=== PATIENT | female | born 1960 | race Caucasian/White ===

== ENCOUNTER 2016-08-28 06:35 | Day surgery (SDC) | payer OTHER ==
[2016-08-28 07:26] VITALS: RESP 16; TEMP 98.7
[2016-08-28 07:26] LABS: Glucose,Whole Blood 90 mg/dL (75-99)
[2016-08-28] MEDS ORDERED: LACTATED RINGERS 1,000 ML IV ONE (07:43)
[2016-08-28] MEDS ORDERED: LIDOCAINE 1% 20 ML VIAL (10MG/ML) FOR IV START INTRADERMA ONE (07:44)
[2016-08-28] MEDS ORDERED: LACTATED RINGERS 1,000 ML IV SCH (07:45)
[2016-08-28] MEDS ORDERED: TRIAMCINOLONE ACETONIDE 40 MG/ML 1 ML VIAL ONE (07:58)
[2016-08-28] MEDS ORDERED: BUPIVACAINE (PF) 0.5% 30 ML VIAL ONE (07:58)
[2016-08-28] MEDS ORDERED: MIDAZOLAM 2 MG/2 ML VIAL ONE (07:58)
[2016-08-28] MEDS ORDERED: fentaNYL (PF) 50 MCG/ML 2 ML AMP ONE (07:58)
[2016-08-28] MEDS ORDERED: IV FLUID CONTINUATION 1,000 ML IV ONE (08:43)
--- NOTE | 2016-08-28 08:54 | FL ---
EXAMINATION TYPE: FL guided pain mgmt statistic DATE OF EXAM: 08/28/2016 8:38 AM FLUOROSCOPY Fluoroscopy time of 48 seconds was used during cervical facet injections. 6 image/s document/s the p rocedure.
[2016-08-28 08:59] VITALS: BP 130/88; PULSE 89
--- NOTE | 2016-08-28 09:48 | P.PCN ---
Date of Procedure: 08/28/16 Anesthesia: MAC Surgeon: Manjit Fan Pathology: none sent Condition: stable Disposition: PACU Description of Procedure: PREOPERATIVE DIAGNOSIS: Cervical spondylosis without myelopathy, cervicogenic headache. POSTOPERATIVE DIAGNOSIS: same PROCEDURES: Diagnostic bilateral C3, C4, C5 medial branch with fluoroscopic guidance ANESTHESIA: Local with 1% lidocaine; IV sedation with Versed and fentanyl EBL: Minimal PROCEDURE INDICATION: This is a patient with neck pain and headaches secondary to cervical arthropathy unresponsive to more conservative treatments, with 2-3 weeks' relief > 50% from CMBB #1; pt presents for #2 today. Patient had flushing with steroids after using Decadron so Kenalog will be used today. PROCEDURE DESCRIPTION / TECHNIQUE: The patient was seen and identified in the preoperative area. Risks, benefits, complications, and alternatives were discussed with the patient (including but not limited to incomplete pain relief , bleeding, infection, nerve damage, and allergies to medications), the patient agreed to proceed with the procedure and signed the consent after all questions were answered. IV was started. Vital signs remained stable throughout the procedure. Patient was taken to the OR and time out was completed. The patient was placed in the prone position on the procedure table. A pillow was placed under the patients chest to increase the cervical interlaminar space. The cervical area was prepped and draped in the usual sterile fashion. Critical pause was taken. Vital signs were closely monitored during the procedure. Conscious sedation was used during the procedure to decrease patients anxiety. Using cross-table lateral fluoroscopy, the centroid of the trapezoid of right C3 , was identified, marked, and localized with 1% lidocaine. Subsequently, a 25 G spinal needle was advanced guided by fluoroscopy to the centroid of the trapezoid of C3. Needle tip position was confirmed at the centroid of the trapezoids of C3 with anteroposterior fluoroscopy. Subsequently, 1 ml of a combination of 20 mg Kenalog and 6 ml of preservative-free Bupivacaine 0.5% was injected after negative aspiration for blood and CSF. Needle was then removed intact the same procedure was repeated at the right C4 and C5 levels, and then repeated for the C3, C4, and C5 medial branch areas on the left side. COMPLICATIONS: No acute complications. COMMENTS: DISPOSITION / PLANS: The patient was placed in a supine position and transferred to the recovery area in a stable condition for observation and was discharged from the recovery room after meeting discharge criteria. Home discharge instructions given to the patient by the staff. The patient was reexamined prior to discharge and there were no issues. The patient will schedule RFA in 2-4 weeks if she has good relief.
== END 2016-08-28 09:16 | disposition home or self-care (01) ==
LOC: ORPAIN 06:35
PROVIDERS: ATTEND Anesthesiology
DX: M47.812 Spondylosis without myelopathy or radiculopathy, cervical region (principal); R51 Headache; M46.92 Unspecified inflammatory spondylopathy, cervical region; M50.30 Other cervical disc degeneration, unspecified cervical region; M54.5 Low back pain; K21.9 Gastro-esophageal reflux disease without esophagitis; Z79.1 Long term (current) use of non-steroidal anti-inflammatories (NSAID); Z79.899 Other long term (current) drug therapy; Z91.09 Other allergy status, other than to drugs and biological substances
CPT/HCPCS: 64490; 64491; 64492; J2250; J3301; J3010

== ENCOUNTER 2016-10-20 06:20 | Day surgery (SDC) | payer OTHER ==
[2016-10-17 10:27] VITALS: BMI 28.3
[2016-10-20 06:50] VITALS: RESP 16; TEMP 97.8
[2016-10-20] MEDS ORDERED: LACTATED RINGERS 1,000 ML IV ONE (07:04)
[2016-10-20 07:05] LABS: Glucose,Whole Blood 97 mg/dL (75-99)
[2016-10-20] MEDS ORDERED: fentaNYL (PF) 50 MCG/ML 2 ML AMP ONE (07:06)
[2016-10-20] MEDS ORDERED: MIDAZOLAM 2 MG/2 ML VIAL ONE (07:06)
[2016-10-20] MEDS ORDERED: DEXAMETHASONE SOD PHOS (MDV) 100 MG/10 ML VIAL ONE (07:06)
[2016-10-20] MEDS ORDERED: LACTATED RINGERS 1,000 ML IV SCH (07:15)
--- NOTE | 2016-10-20 08:32 | FL ---
Fluoroscopy INDICATION: Pain FINDINGS: Fluoroscopy time: 37 seconds. Images obtained: 1. IMPRESSIONS: 1. Documentation of fluoroscopy.
[2016-10-20 08:36] VITALS: BP 114/79; PULSE 83
--- NOTE | 2016-10-20 10:06 | P.PCN ---
Date of Procedure: 10/20/16 Surgeon: Manjit Fan Pathology: none sent Condition: stable Disposition: PACU Description of Procedure: PREOPERATIVE DIAGNOSIS: Cervical spondylosis without myelopathy and facet arthropathy. POSTOPERATIVE DIAGNOSIS: Cervical spondylosis without myelopathy and facet arthropathy. PROCEDURES: Radiofrequency thermocoagulation, C3-C4, C4-C5, C5-C6 medial branch , with fluoroscopic guidance, right side. ANESTHESIA: Local with 1% lidocaine; conscious sedation EBL: Minimal PROCEDURE INDICATION: The patient with neck pain secondary to cervical arthropathy who had more than 50% relief of her pain with previous diagnostic cervical medial branch block. No use of blood thinners. Patient presents for cervical RFA today. PROCEDURE DESCRIPTION / TECHNIQUE: The patient was seen and identified in the preoperative area. Risks, benefits, complications, and alternatives were discussed with the patient (with risks including but not limited to bleeding, infection, nerve damage, incomplete pain relief, and allergic reactions to medications), the patient agreed to proceed with the procedure and signed the informed consent after all questions were answered. IV was started. Vital signs remained stable throughout the procedure. Patient was taken to the OR and time out was completed. The patient was placed in the prone position on the procedure table. A pillow was placed under the patients chest to increase the cervical interlaminar space. The cervical area was prepped and draped in the usual sterile fashion. Critical pause was taken. Vital signs were closely monitored during the procedure. Conscious sedation was used during the procedure to decrease patients anxiety. Using cross-table lateral fluoroscopy, the centroid of the trapezoid of C3, C4, C5, C6 were identified, marked, and localized with 1% lidocaine. Subsequently, a 21-gauge 100-mm radiofrequency cannula with a 5-mm active tip was advanced guided by fluoroscopy to the centroid of the trapezoid of C4, C5, and C6. Needle tip position was confirmed at the centroid of the trapezoids of C4, C5, and C6 with anteroposterior fluoroscopy. Each site then underwent sensory testing at 50 Hz and 0 to 1 volt and motor testing at 2 Hz and 0 to 3 volt with local stimulation, but no radicular symptoms down the arm. Thereafter C4, C5, and C6 sites underwent radiofrequency thermocoagulation at 80 degrees celsius for 90 seconds after injecting 0.5 ml of PF lidocaine 1%. After thermocoagulation, 1 ml of the block solution containing Decadron 10 mg and 2 mL of preservative-free normal saline was injected at the C4, C5, and C6 levels after negative aspiration of CSF and blood and with no paresthesias. Cannulas were retracted while injecting lidocaine 1% until the needle is out. Skin was cleansed and bandages were applied. COMPLICATIONS: No acute complications. COMMENTS: DISPOSITION / PLANS: The patient was placed in a supine position and transferred to the recovery area in a stable condition for observation and was discharged from the recovery room after meeting discharge criteria. Home discharge instructions given to the patient by the staff. The patient was reexamined prior to discharge. The patient will schedule a follow up for left cervical RFA in 2-4 weeks.
== END 2016-10-20 08:55 | disposition home or self-care (01) ==
LOC: ORPAIN 06:20
PROVIDERS: ATTEND Anesthesiology
DX: M47.812 Spondylosis without myelopathy or radiculopathy, cervical region (principal); M46.92 Unspecified inflammatory spondylopathy, cervical region; Z91.013 Allergy to seafood
CPT/HCPCS: 64633; 64634 ×2; 99152; 99153 ×2; J2250; J3010; J1100

== ENCOUNTER → 2016-11-07 | Day surgery (SDC) | payer OTHER ==
[2016-11-03 10:47] VITALS: BMI 26.9
[~2016-11-07] MED LIST: BUPIVACAIN-EPI 0.25%-1:200,000 30 ML VIAL SQ ONE; DEXAMETHASONE SOD PHOSPHATE 10 MG/ML 1 ML VIAL IV ONE; HEPARIN SODIUM,PORCINE 5,000 UNIT/ML 1 ML VIAL SQ ONE; HYDROmorphone 1 MG/ML 1 ML SYRINGE IVP PRN; LACTATED RINGERS 1,000 ML IV SCH; MIDAZOLAM 2 MG/2 ML VIAL IV PRN; MIDAZOLAM 2 MG/2 ML VIAL ONE; ONDANSETRON 4 MG/2 ML VIAL IVP ONE; PROPOFOL 10 MG/ML 20 ML VIAL IV ONE; SCOPOLAMINE 1.5MG/72HR PATCH TRANSDERM ONE; SODIUM CHLORIDE 0.9% 50 ML with ceFAZolin 2,000 MG IV ONE; fentaNYL (PF) 50 MCG/ML 2 ML AMP ONE
[2016-11-07 07:02] LABS: Glucose,Whole Blood 99 mg/dL (75-99)
--- NOTE | 2016-11-07 07:53 | P.GSHP ---
History of Present Illness H&P Date: 11/07/16 Chief Complaint: Right chest wall lipoma This a 56-year-old female who has complaints of a right chest wall mass. The mass is just below her right clavicle mass measures approximately 3 cm in diameter and has the appearance of a lipoma. - Constitutional Constitutional: Reports as per HPI Past Medical History Past Medical History: Asthma, COPD, Diabetes Mellitus, Fibromyalgia, GERD/Reflux , Hypertension, Liver Disease, Osteoarthritis (OA), Renal Disease Additional Past Medical History / Comment(s): Hepatitis C, DDD in cervical neck area, Sjogren's syndrome. Hx. arrythmia, diet control diabetic restless leg syndrome. osteoporosis History of Any Multi-Drug Resistant Organisms: None Reported Past Surgical History: Cholecystectomy, Hernia Repair, Orthopedic Surgery, Tubal Ligation Additional Past Surgical History / Comment(s): BILAT CARPAL TUNNEL, EYE SURGERY A CHILD, RT FOOT FX. , HIATAL HERNIA SX, [facility] INJECTIONS, umblical hernia, bilat toenails removed 10/22/15. Past Anesthesia/Blood Transfusion Reactions: Motion Sickness Past Psychological History: Anxiety, Depression Smoking Status: Former smoker Past Alcohol Use History: None Reported Additional Past Alcohol Use History / Comment(s): Pt quit smoking -2012, smoked 1PPD x 29 yrs. Past Drug Use History: None Reported - Past Family History Father Family Medical History: Cancer Additional Family Medical History / Comment(s): Colon Mother Family Medical History: Cancer Additional Family Medical History / Comment(s): Uterine Medications and Allergies Home Medications Medication Instructions Recorded Confirmed Type Albuterol Inhaler [Ventolin 1 - 2 puff INHALATION DIRECTED 02/15/14 11/07/16 History Inhaler] PRN Sucralfate [Carafate] 1 gm PO BID PRN 02/15/14 11/07/16 History hydrALAZINE HCL 10 mg PO BID 02/15/14 11/03/16 History oxyCODONE HCL [OxyIR] 5 mg PO QID 02/15/14 11/03/16 History traMADol HCl [Ultram] 50 tab PO BID 02/15/14 11/03/16 History traZODone HCL [Desyrel] 100 mg PO HS 02/15/14 11/03/16 History Montelukast Sodium [Singulair] 10 mg PO HS 04/14/14 11/03/16 History Cyclobenzaprine [Flexeril] 10 mg PO HS 08/28/14 11/03/16 History Pilocarpine [Salagen] 5 mg PO QID 10/20/14 11/03/16 History Albuterol Nebulized [Ventolin 2.5 mg INHALATION QID 11/23/14 11/07/16 History Nebulized] Fluticasone/Salmeterol [Advair 1 inhalation PO BID 11/23/14 11/03/16 History 250-50 Diskus] Ipratropium Nebulized [Atrovent 0.5 mg INHALATION Q6HR 11/23/14 11/03/16 History Nebulized] Alendronate Sodium 70 mg PO WEEKLY 03/15/15 11/07/16 History Budesonide [Pulmicort] 1 applicate IH BID 03/15/15 11/03/16 History Gabapentin [Gabapentin] 100 mg PO TID 03/15/15 11/03/16 History Sennosides [Senokot] 8.6 mg PO DAILY PRN 03/20/15 11/07/16 History Estradiol [Vagifem] 10 mcg VG WESA 08/06/15 11/03/16 History rOPINIRole HCL [Requip] 0.5 mg PO HS 09/03/15 11/03/16 History Lansoprazole [Prevacid] 30 mg PO DAILY 12/26/15 11/03/16 History Gabapentin [Neurontin] 300 mg PO HS 07/08/16 11/03/16 History Biotin 5,000 mcg PO DAILY 10/17/16 11/03/16 History Cranberry Extract [Cranberry] 500 mg PO DAILY 10/17/16 11/03/16 History Garlic 1 each PO BID 10/17/16 11/03/16 History Multivits-Min/Iron/FA/Lutein 1 each PO DAILY 10/17/16 11/03/16 History [Centrum Silver Women Tablet] Ciclopirox Nail 1 applicate TOPICAL HS 11/03/16 11/07/16 History Sm Athelet 1% 1 applicate TOPICAL BID 11/03/16 11/07/16 History Allergies Allergy/AdvReac Type Severity Reaction Status Date / Time JOSE Inhibitors Allergy Swelling Verified 11/07/16 06:49 acetaminophen Allergy Anaphylaxis Verified 11/07/16 06:49 adhesive Allergy skin peels Verified 11/07/16 06:49 off(plastic & bandaids), paper/cloth tape ok amitriptyline Allergy Swelling Verified 11/07/16 06:49 aspirin Allergy SHORTNESS Verified 11/07/16 06:49 OF BREATH, SWELLING,VOMITING atorvastatin calcium Allergy Anaphylaxis Verified 11/07/16 06:49 [From Lipitor] bupropion HCl Allergy TONGUE Verified 11/07/16 06:49 [From Wellbutrin] SWELLING calcium Allergy Diarrhea Verified 11/07/16 06:49 ciprofloxacin [From Cipro] Allergy Vomiting,RA Verified 11/07/16 06:49 SH citalopram hydrobromide Allergy TONGUE Verified 11/07/16 06:49 [From Celexa] SWELLING clarithromycin [From Biaxin] Allergy Vomiting Verified 11/07/16 06:49 duloxetine HCl Allergy SWELLING Verified 11/07/16 06:49 [From Cymbalta] OF TONGUE Fish Containing Products Allergy Vomiting,SW Verified 11/07/16 06:49 DAVID BRYANT lisinopril Allergy TONGUE Verified 11/07/16 06:49 SWELLING morphine Allergy SWELLING,RASH,SWELLING Verified 11/07/16 06:49 OF TONGUE,ABDOMINAL PAIN naproxen Allergy Vomiting,TONGUE Verified 11/07/16 06:49 SWELLING,SHORTNESS OF BREATH paroxetine HCl [From Paxil] Allergy Vomiting,TONGUE Verified 11/07/16 06:49 SWELLING penicillin V Allergy Anaphylaxis Verified 11/07/16 06:49 pregabalin [From Lyrica] Allergy TONGUE Verified 11/07/16 06:49 SWELLING ,RASH Salicylates Allergy SWELLING Verified 11/07/16 06:49 OF TONGUE,SHORTNESS OF BREATH,,VOMITING sertraline HCl [From Zoloft] Allergy SWELLING Verified 11/07/16 06:49 OF TONGUE shellfish derived [Shellfish] Allergy SWELLING Verified 11/07/16 06:49 OF TONGUE,,HIVES venom-honey bee Allergy SHORTNESS Verified 11/07/16 06:49 OF BREATH,VOMITING insect stings Allergy Swelling,RASH,SHORTNESS Uncoded 11/07/16 06:49 OF BREATH SEAFOOD Allergy SWELLING Uncoded 11/07/16 06:49 OF TONGUE,HIVES Surgical - Exam Vital Signs Temp Pulse Resp BP Pulse Ox 97.9 F 120 H 16 126/78 96 11/07/16 07:00 11/07/16 07:00 11/07/16 07:00 11/07/16 07:00 11/07/16 07:00 - General well developed, no distress - Eyes PERRL - ENT normal pinna - Neck no masses - Respiratory 3 cm lipoma located just below right clavicle. The mass is firm and nontender. normal expansion - Cardiovascular Rhythm: regular - Abdomen Abdomen: soft, non tender Assessment and Plan Plan: Right chest wall lipoma. We'll perform excisional biopsy.
--- NOTE | 2016-11-07 08:32 | P.OP ---
Date of Procedure: 11/07/16 Preoperative Diagnosis: right chest wall lipoma Postoperative Diagnosis: Right chest wall lipoma Procedure(s) Performed: Excision of right chest wall lipoma Anesthesia: MAC Surgeon: Micha Brito Estimated Blood Loss (ml): 5 Pathology: other (Right chest wall lipoma) Condition: stable Disposition: PACU Description of Procedure: The patient's placed on the operating table in supine position. She received IV sedation. Her right chest was prepped and draped usual fashion. Patient had a lipoma located just below the right clavicle. The skin is a injected with 1% local Xylocaine. The skin was incised a 15 blade. Using blunt cautery and blunt and sharp dissection the lipoma was excised. The lipoma present measured approximately 10 cm in diameter. The Bovie hemostasis. The skin was closed with interrupted 3-0 Monocryl suture. Dermabond was applied. Patient top procedure well was sent to recovery in stable condition.
[2016-11-07 08:38] VITALS: TEMP 98
[2016-11-07 08:48] VITALS: RESP 16
[2016-11-07 09:44] VITALS: BP 121/83; PULSE 96
== END | disposition home or self-care (01) ==
LOC: OR 06:07
PROVIDERS: ATTEND Surgery
DX: D17.1 Benign lipomatous neoplasm of skin and subcutaneous tissue of trunk (principal); J44.9 Chronic obstructive pulmonary disease, unspecified; J45.909 Unspecified asthma, uncomplicated; E11.9 Type 2 diabetes mellitus without complications; I10 Essential (primary) hypertension; Z87.891 Personal history of nicotine dependence; M79.7 Fibromyalgia; K21.9 Gastro-esophageal reflux disease without esophagitis; B19.20 Unspecified viral hepatitis C without hepatic coma; M19.90 Unspecified osteoarthritis, unspecified site; G25.81 Restless legs syndrome; M81.0 Age-related osteoporosis without current pathological fracture; F41.9 Anxiety disorder, unspecified; F32.9 Major depressive disorder, single episode, unspecified; Z79.51 Long term (current) use of inhaled steroids; Z79.899 Other long term (current) drug therapy; Z88.6 Allergy status to analgesic agent; Z88.8 Allergy status to other drugs, medicaments and biological substances; Z91.09 Other allergy status, other than to drugs and biological substances
CPT/HCPCS: 88304; 11406; J2250; J1644; J1100; J2405; J0690; J3010; J2704

== ENCOUNTER 2016-11-13 08:15 | Day surgery (SDC) | payer OTHER ==
[2016-11-11 10:27] VITALS: BMI 26.9
[~2016-11-13 08:15] MED LIST changes: -BUPIVACAIN-EPI 0.25%-1:200,000 30 ML VIAL SQ ONE; -DEXAMETHASONE SOD PHOSPHATE 10 MG/ML 1 ML VIAL IV ONE; -HEPARIN SODIUM,PORCINE 5,000 UNIT/ML 1 ML VIAL SQ ONE; -HYDROmorphone 1 MG/ML 1 ML SYRINGE IVP PRN; +LIDOCAINE 1% 20 ML VIAL (10MG/ML) FOR IV START INTRADERMA PRN; -MIDAZOLAM 2 MG/2 ML VIAL IV PRN; -MIDAZOLAM 2 MG/2 ML VIAL ONE; -ONDANSETRON 4 MG/2 ML VIAL IVP ONE; -PROPOFOL 10 MG/ML 20 ML VIAL IV ONE; -SCOPOLAMINE 1.5MG/72HR PATCH TRANSDERM ONE; -SODIUM CHLORIDE 0.9% 50 ML with ceFAZolin 2,000 MG IV ONE; -fentaNYL (PF) 50 MCG/ML 2 ML AMP ONE
[2016-11-13 08:41] LABS: Glucose,Whole Blood 90 mg/dL (75-99)
[2016-11-13 08:44] VITALS: TEMP 98.5
[2016-11-13] MEDS ORDERED: LIDOCAINE 1% INJ 10MG/ML (20 ML MDV) ONE (09:47)
[2016-11-13] MEDS ORDERED: PROPOFOL 10 MG/ML 20 ML VIAL IV ONE (09:47)
--- NOTE | 2016-11-13 10:20 | P.GSHP ---
History of Present Illness H&P Date: 11/13/16 Chief Complaint: GERD This a 56-year-old female for from Dr. burgos. Patient presents today for EGD. She's had complaints of GERD. - Constitutional Constitutional: Reports as per HPI Past Medical History Past Medical History: Asthma, COPD, Diabetes Mellitus, Fibromyalgia, GERD/Reflux , Hypertension, Liver Disease, Osteoarthritis (OA), Renal Disease Additional Past Medical History / Comment(s): Hep. C, DDD in cervical neck area , Sjogren's syndrome. Hx. arrythmia, diet control diabetes, restless leg syndrome,osteoporsis,UTI History of Any Multi-Drug Resistant Organisms: None Reported Past Surgical History: Cholecystectomy, Hernia Repair, Orthopedic Surgery, Tubal Ligation Additional Past Surgical History / Comment(s): BILAT CARPAL TUNNEL, EYE SURGERY A CHILD, RT FT FX. , HIATAL HERNIA SX, [facility] INJECTIONS, umblical hernia, bilat toenails removed Past Anesthesia/Blood Transfusion Reactions: Motion Sickness Past Psychological History: Anxiety, Depression Smoking Status: Former smoker Past Alcohol Use History: None Reported Additional Past Alcohol Use History / Comment(s): Pt quit smoking and drinking - 2012 smoked 1PPD x 29 yrs. Past Drug Use History: None Reported - Past Family History Father Family Medical History: Cancer Additional Family Medical History / Comment(s): Colon Mother Family Medical History: Cancer, Hypertension Additional Family Medical History / Comment(s): Uterine Medications and Allergies Home Medications Medication Instructions Recorded Confirmed Type Albuterol Inhaler [Ventolin 1 - 2 puff INHALATION ONCE PRN 02/15/14 11/13/16 History Inhaler] Sucralfate [Carafate] 1 gm PO BID PRN 02/15/14 11/13/16 History hydrALAZINE HCL 10 mg PO TID 02/15/14 11/13/16 History oxyCODONE HCL [OxyIR] 5 mg PO QID 02/15/14 11/13/16 History traMADol HCl [Ultram] 50 tab PO BID 02/15/14 11/13/16 History traZODone HCL [Desyrel] 100 mg PO HS 02/15/14 11/13/16 History Montelukast Sodium [Singulair] 10 mg PO HS 04/14/14 11/13/16 History Cyclobenzaprine [Flexeril] 10 mg PO HS 08/28/14 11/13/16 History Pilocarpine [Salagen] 5 mg PO QID 10/20/14 11/13/16 History Albuterol Nebulized [Ventolin 2.5 mg INHALATION QID 11/23/14 11/13/16 History Nebulized] Fluticasone/Salmeterol [Advair 1 inhalation PO BID 11/23/14 11/13/16 History 250-50 Diskus] Ipratropium Nebulized [Atrovent 0.5 mg INHALATION Q6HR 11/23/14 11/13/16 History Nebulized] Alendronate Sodium 70 mg PO WEEKLY 03/15/15 11/13/16 History Budesonide [Pulmicort] 1 applicate IH BID 03/15/15 11/13/16 History Gabapentin [Gabapentin] 100 mg PO TID 03/15/15 11/13/16 History Sennosides [Senokot] 8.6 mg PO DAILY PRN 03/20/15 11/13/16 History Estradiol [Vagifem] 10 mcg VG SUTH 08/06/15 11/13/16 History rOPINIRole HCL [Requip] 0.5 mg PO HS 09/03/15 11/13/16 History Lansoprazole [Prevacid] 30 mg PO QAM 12/26/15 11/13/16 History Gabapentin [Neurontin] 300 mg PO HS 07/08/16 11/13/16 History Biotin 5,000 mcg PO DAILY 10/17/16 11/13/16 History Cranberry Extract [Cranberry] 500 mg PO DAILY 10/17/16 11/13/16 History Garlic 1 each PO BID 10/17/16 11/13/16 History Multivits-Min/Iron/FA/Lutein 1 each PO DAILY 10/17/16 11/13/16 History [Centrum Silver Women Tablet] Ciclopirox Nail 1 applicate TOPICAL HS 11/03/16 11/13/16 History Sm Athelet 1% 1 applicate TOPICAL BID 11/03/16 11/13/16 History Allergies Allergy/AdvReac Type Severity Reaction Status Date / Time JOSE Inhibitors Allergy Swelling Verified 11/13/16 08:35 acetaminophen Allergy Anaphylaxis Verified 11/13/16 08:35 adhesive Allergy skin peels Verified 11/13/16 08:35 off(plastic & bandaids), paper/cloth tape ok amitriptyline Allergy Swelling Verified 11/13/16 08:35 aspirin Allergy Anaphylaxis Verified 11/13/16 08:35 atorvastatin calcium Allergy Anaphylaxis Verified 11/13/16 08:35 [From Lipitor] bupropion HCl Allergy TONGUE Verified 11/13/16 08:35 [From Wellbutrin] SWELLING calcium Allergy Diarrhea Verified 11/13/16 08:35 ciprofloxacin [From Cipro] Allergy Vomiting,RA Verified 11/13/16 08:35 SH citalopram hydrobromide Allergy TONGUE Verified 11/13/16 08:35 [From Celexa] SWELLING clarithromycin [From Biaxin] Allergy Vomiting Verified 11/13/16 08:35 duloxetine HCl Allergy SWELLING Verified 11/13/16 08:35 [From Cymbalta] OF TONGUE Fish Containing Products Allergy Vomiting,SW Verified 11/13/16 08:35 DAVID BRYANT lisinopril Allergy kidney and Verified 11/13/16 08:35 liver failure,dehydration morphine Allergy SWELLING,RASH,SWELLING Verified 11/13/16 08:35 OF TONGUE,ABDOMINAL PAIN naproxen Allergy Vomiting,TONGUE Verified 11/13/16 08:35 SWELLING,SHORTNESS OF BREATH paroxetine HCl [From Paxil] Allergy Vomiting,TONGUE Verified 11/13/16 08:35 SWELLING Penicillins Allergy Anaphylaxis Verified 11/13/16 08:35 pregabalin [From Lyrica] Allergy TONGUE Verified 11/13/16 08:35 SWELLING ,RASH Salicylates Allergy Anaphylaxis Verified 11/13/16 08:35 sertraline HCl [From Zoloft] Allergy SWELLING Verified 11/13/16 08:35 OF TONGUE shellfish derived [Shellfish] Allergy SWELLING Verified 11/13/16 08:35 OF TONGUE,,HIVES venom-honey bee Allergy SHORTNESS Verified 11/13/16 08:35 OF BREATH,VOMITING insect stings Allergy Swelling,RASH,SHORTNESS Uncoded 11/13/16 08:35 OF BREATH SEAFOOD Allergy SWELLING Uncoded 11/13/16 08:35 OF TONGUE,HIVES Surgical - Exam Vital Signs Temp Pulse Resp BP Pulse Ox 98.5 F 100 16 139/86 97 11/13/16 08:42 11/13/16 08:42 11/13/16 08:42 11/13/16 08:42 11/13/16 08:42 - General well developed, no distress - Eyes PERRL - ENT normal pinna - Neck no masses - Respiratory normal expansion - Cardiovascular Rhythm: regular - Abdomen Abdomen: soft, non tender Assessment and Plan Plan: GERD. We'll perform EGD.
--- NOTE | 2016-11-13 10:28 | P.OP ---
Date of Procedure: 11/13/16 Preoperative Diagnosis: GERD Postoperative Diagnosis: Antral gastritis Procedure(s) Performed: EGD Anesthesia: MAC Surgeon: Micha Brito Pathology: other (Antrum) Condition: stable Disposition: PACU Description of Procedure: The patient's placed on the endoscopy table in the lateral position. She received IV sedation. The gastroscope some placed oropharynx and passed into the esophagus and into the stomach. The scope was then placed through the pylorus. The first and second portion of the duodenum appeared normal. Scope was then brought back the antrum and this appeared mildly inflamed. A biopsies was performed. The scope was retroflexed and the remainder of the stomach appeared normal. There was no hiatal hernia. The GE junction was at 40 cm. The distal esophagus appeared normal. The proximal esophagus was normal. The scope was withdrawn.
[2016-11-13 10:33] VITALS: RESP 18
[2016-11-13 10:48] VITALS: BP 151/93; PULSE 75
== END 2016-11-13 11:01 | disposition home or self-care (01) ==
LOC: ORWHC2ENDO 08:15
PROVIDERS: ATTEND Surgery
DX: K29.50 Unspecified chronic gastritis without bleeding (principal); K21.9 Gastro-esophageal reflux disease without esophagitis; J44.9 Chronic obstructive pulmonary disease, unspecified; J45.909 Unspecified asthma, uncomplicated; Z87.891 Personal history of nicotine dependence; M79.7 Fibromyalgia; I10 Essential (primary) hypertension; E11.9 Type 2 diabetes mellitus without complications; N28.9 Disorder of kidney and ureter, unspecified; M19.90 Unspecified osteoarthritis, unspecified site; M35.00 Sjogren syndrome, unspecified; G25.81 Restless legs syndrome; Z79.51 Long term (current) use of inhaled steroids; Z79.899 Other long term (current) drug therapy; Z88.1 Allergy status to other antibiotic agents; Z88.5 Allergy status to narcotic agent; Z91.013 Allergy to seafood; Z88.8 Allergy status to other drugs, medicaments and biological substances; Z91.09 Other allergy status, other than to drugs and biological substances; Z88.0 Allergy status to penicillin
CPT/HCPCS: 88305; 88342; 43239; J2001; J2704

== ENCOUNTER 2016-11-19 06:09 | Day surgery (SDC) | payer OTHER ==
[2016-11-14 11:58] VITALS: BMI 26.4
[~2016-11-19 06:09] MED LIST changes: +CLINDAMYCIN 900 MG in DEXTROSE 5% IN WATER 50 ML IVPB ONE; +DEXAMETHASONE SOD PHOSPHATE 10 MG/ML 1 ML VIAL IV ONE; +HEPARIN SODIUM,PORCINE 5,000 UNIT/ML 1 ML VIAL SQ ONE; -LACTATED RINGERS 1,000 ML IV SCH; +MIDAZOLAM 2 MG/2 ML VIAL IV PRN; +ONDANSETRON 4 MG/2 ML VIAL IVP ONE; +SCOPOLAMINE 1.5MG/72HR PATCH TRANSDERM ONE
[2016-11-19] MEDS: LACTATED RINGERS 1,000 ML IV SCH ×2 (06:53→08:07)
[2016-11-19 07:00] LABS: Glucose,Whole Blood 96 mg/dL (75-99)
--- NOTE | 2016-11-19 08:03 | P.GSHP ---
History of Present Illness H&P Date: 11/19/16 Chief Complaint: Incarcerated umbilical hernia This is a 56-year-old female who presents today for laparoscopic robotic- assisted repair of incarcerated umbilical hernia. Patient developed a mass at her umbilicus which has caused some pain. Past Medical History Past Medical History: Asthma, COPD, Diabetes Mellitus, Fibromyalgia, GERD/Reflux , Hypertension, Osteoarthritis (OA), Renal Disease Additional Past Medical History / Comment(s): Hep. C, DDD in cervical neck area , Sjogren's syndrome. Hx. arrythmia, not on meds for diabetes, restless leg syndrome. Recent UTI now resolved, EGD on 11/13/16. History of Any Multi-Drug Resistant Organisms: None Reported Past Surgical History: Cholecystectomy, Hernia Repair, Orthopedic Surgery, Tubal Ligation Additional Past Surgical History / Comment(s): BILAT CARPAL TUNNEL(JUN 2014), EYE SURGERY A CHILD, RT FT FX. , HIATAL HERNIA SX, [facility] INJECTIONS, umblical hernia, bilat toenails removed 10/22/15. Past Anesthesia/Blood Transfusion Reactions: Motion Sickness Past Psychological History: Anxiety, Depression Smoking Status: Former smoker Past Alcohol Use History: None Reported Additional Past Alcohol Use History / Comment(s): Pt quit smoking and drinking - 2012 smoked 1PPD x 29 yrs. Past Drug Use History: None Reported - Past Family History Father Family Medical History: Cancer Additional Family Medical History / Comment(s): Colon Mother Family Medical History: Cancer, Hypertension Additional Family Medical History / Comment(s): Uterine Medications and Allergies Home Medications Medication Instructions Recorded Confirmed Type Albuterol Inhaler [Ventolin 1 - 2 puff INHALATION ONCE PRN 02/15/14 11/19/16 History Inhaler] Sucralfate [Carafate] 1 gm PO BID PRN 02/15/14 11/19/16 History hydrALAZINE HCL 10 mg PO TID 02/15/14 11/19/16 History oxyCODONE HCL [OxyIR] 5 mg PO QID 02/15/14 11/19/16 History traMADol HCl [Ultram] 50 tab PO BID 02/15/14 11/19/16 History traZODone HCL [Desyrel] 100 mg PO HS 02/15/14 11/19/16 History Montelukast Sodium [Singulair] 10 mg PO HS 04/14/14 11/19/16 History Cyclobenzaprine [Flexeril] 10 mg PO HS 08/28/14 11/19/16 History Pilocarpine [Salagen] 5 mg PO QID 10/20/14 11/19/16 History Albuterol Nebulized [Ventolin 2.5 mg INHALATION QID 11/23/14 11/19/16 History Nebulized] Fluticasone/Salmeterol [Advair 1 inhalation PO BID 11/23/14 11/19/16 History 250-50 Diskus] Ipratropium Nebulized [Atrovent 0.5 mg INHALATION Q6HR 11/23/14 11/19/16 History Nebulized] Alendronate Sodium 70 mg PO WEEKLY 03/15/15 11/19/16 History Budesonide [Pulmicort] 1 applicate IH BID 03/15/15 11/19/16 History Gabapentin [Gabapentin] 100 mg PO TID 03/15/15 11/19/16 History Sennosides [Senokot] 8.6 mg PO DAILY PRN 03/20/15 11/19/16 History Estradiol [Vagifem] 10 mcg VG SUTH 08/06/15 11/19/16 History rOPINIRole HCL [Requip] 0.5 mg PO HS 09/03/15 11/19/16 History Lansoprazole [Prevacid] 30 mg PO QAM 12/26/15 11/19/16 History Gabapentin [Neurontin] 300 mg PO HS 07/08/16 11/19/16 History Biotin 5,000 mcg PO DAILY 10/17/16 11/19/16 History Cranberry Extract [Cranberry] 500 mg PO DAILY 10/17/16 11/19/16 History Garlic 1 each PO BID 10/17/16 11/19/16 History Multivits-Min/Iron/FA/Lutein 1 each PO DAILY 10/17/16 11/19/16 History [Centrum Silver Women Tablet] Ciclopirox Nail 1 applicate TOPICAL HS 11/03/16 11/19/16 History Sm Athelet 1% 1 applicate TOPICAL BID 11/03/16 11/19/16 History Allergies Allergy/AdvReac Type Severity Reaction Status Date / Time JOSE Inhibitors Allergy Swelling Verified 11/19/16 06:20 acetaminophen Allergy Anaphylaxis Verified 11/19/16 06:20 adhesive Allergy skin peels Verified 11/19/16 06:20 off(plastic & bandaids), paper/cloth tape ok amitriptyline Allergy Swelling Verified 11/19/16 06:20 aspirin Allergy Anaphylaxis Verified 11/19/16 06:20 atorvastatin calcium Allergy Anaphylaxis Verified 11/19/16 06:20 [From Lipitor] bupropion HCl Allergy TONGUE Verified 11/19/16 06:20 [From Wellbutrin] SWELLING calcium Allergy Diarrhea Verified 11/19/16 06:20 ciprofloxacin [From Cipro] Allergy Vomiting,RA Verified 11/19/16 06:20 SH citalopram hydrobromide Allergy TONGUE Verified 11/19/16 06:20 [From Celexa] SWELLING clarithromycin [From Biaxin] Allergy Vomiting Verified 11/19/16 06:20 duloxetine HCl Allergy SWELLING Verified 11/19/16 06:20 [From Cymbalta] OF TONGUE Fish Containing Products Allergy Vomiting,SW Verified 11/19/16 06:20 DAVID BRYANT lisinopril Allergy kidney and Verified 11/19/16 06:20 liver failure,dehydration morphine Allergy SWELLING,RASH,SWELLING Verified 11/19/16 06:20 OF TONGUE,ABDOMINAL PAIN naproxen Allergy Vomiting,TONGUE Verified 11/19/16 06:20 SWELLING,SHORTNESS OF BREATH paroxetine HCl [From Paxil] Allergy Vomiting,TONGUE Verified 11/19/16 06:20 SWELLING Penicillins Allergy Anaphylaxis Verified 11/19/16 06:20 pregabalin [From Lyrica] Allergy TONGUE Verified 11/19/16 06:20 SWELLING ,RASH Salicylates Allergy Anaphylaxis Verified 11/19/16 06:20 sertraline HCl [From Zoloft] Allergy SWELLING Verified 11/19/16 06:20 OF TONGUE shellfish derived [Shellfish] Allergy SWELLING Verified 11/19/16 06:20 OF TONGUE,,HIVES venom-honey bee Allergy SHORTNESS Verified 11/19/16 06:20 OF BREATH,VOMITING insect stings Allergy Swelling,RASH,SHORTNESS Uncoded 11/19/16 06:20 OF BREATH SEAFOOD Allergy SWELLING Uncoded 11/19/16 06:20 OF TONGUE,HIVES Surgical - Exam Vital Signs Temp Pulse Resp BP Pulse Ox 98.4 F 99 16 134/84 95 11/19/16 06:35 11/19/16 06:35 11/19/16 06:35 11/19/16 06:35 11/19/16 06:35 - General well developed, no distress - Eyes PERRL - ENT normal pinna - Neck no masses - Respiratory normal expansion - Cardiovascular Rhythm: regular - Abdomen Abdomen: soft, non tender Hernia: umbilical, incarcerated Assessment and Plan Plan: Incarcerated umbilical hernia. We'll perform laparoscopic robotic-assisted repair.
[2016-11-19] MEDS ORDERED: fentaNYL (PF) 50 MCG/ML 2 ML AMP ONE (08:08)
[2016-11-19] MEDS ORDERED: PROPOFOL 10 MG/ML 20 ML VIAL IV ONE (08:08)
[2016-11-19] MEDS ORDERED: ALBUTEROL INHALER 60 PUFF/8 GM INHALER INHALATION ONE (08:08)
[2016-11-19] MEDS ORDERED: SUCCINYLCHOLINE CHLORIDE 100 MG/5 ML SYR IV ONE (08:08)
[2016-11-19] MEDS ORDERED: NEOSTIGMINE 1 MG/ML 10 ML VIAL ONE (08:08)
[2016-11-19] MEDS ORDERED: GLYCOPYRROLATE 0.2 MG/ML 2 ML VIAL ONE (08:08)
[2016-11-19] MEDS ORDERED: ESMOLOL 100 MG/10 ML VIAL ONE (08:08)
[2016-11-19] MEDS ORDERED: MIDAZOLAM 2 MG/2 ML VIAL ONE (08:08)
[2016-11-19] MEDS ORDERED: KETAMINE 10 MG/ML 20 ML VIAL ONE (08:08)
[2016-11-19] MEDS ORDERED: LIDOCAINE 1% INJ 10MG/ML (20 ML MDV) ONE (08:08)
[2016-11-19] MEDS ORDERED: ROCURONIUM BROMIDE 10 MG/ML 10 ML VIAL IV ONE (08:08)
[2016-11-19] MEDS ORDERED: BUPIVACAIN-EPI 0.25%-1:200,000 30 ML VIAL SQ ONE (08:30)
[2016-11-19] MEDS ORDERED: LACTATED RINGERS 1,000 ML IV ONE (09:06)
--- NOTE | 2016-11-19 09:13 | P.OP ---
Date of Procedure: 11/19/16 Preoperative Diagnosis: Incarcerated umbilical hernia Postoperative Diagnosis: Incarcerated umbilical hernia Procedure(s) Performed: Laparoscopic robotic-assisted repair of incarcerated umbilical hernia Anesthesia: MARYBEL Surgeon: Micha Brito Estimated Blood Loss (ml): 5 Pathology: none sent Condition: stable Disposition: PACU Description of Procedure: The patient's placed on the operating table in the supine position. She received general anesthesia. Her abdomen was prepped and draped usual sterile fashion. The skin incision sites were anesthetized 1% local Xylocaine. Using a 5 mm blade was trocar under direct visualization the peritoneal cavity was entered and then the abdomen was insufflated and then the laparoscope was placed back into the peritoneal cavity. Next a 8 mm robotic trocar was placed into the left lower quadrant and then a 12 trochars placed in the left lateral position and the original 5 ohmmeter trocar was exchanged for a 8 mm robotic trocar. The patient's placed in the left side up position and then was docked to the robot. The patient incarcerated umbilical hernia. The incarcerated peritoneal fat was reduced. And then the fascial defect was closed with OV lock suture. Next a 11 cm round ventral light ST mesh was placed in the peritoneal cavity and secured with 2 OV lock suture. The patient was then undocked from the robot. The needles were retrieved. The fascia the 12 mm trocar site was closed with 0 Ethibond suture. Skin was closed interrupted 3-0 Monocryl suture. Dermabond was applied. Patient was sent to recovery in stable condition.
[2016-11-19 09:31] VITALS: TEMP 97.1
[2016-11-19] MEDS: HYDROmorphone 1 MG/ML 1 ML SYRINGE IVP PRN ×6 (09:36→10:04)
[2016-11-19 10:00] LABS: Glucose,Whole Blood 123 mg/dL (75-99)
[2016-11-19 10:09] VITALS: RESP 16
[2016-11-19] MEDS ORDERED: HYDROcodone/APAP 7.5-325MG 1 EACH TAB PO ONE (10:36)
[2016-11-19 11:06] VITALS: BP 117/77; PULSE 93
== END 2016-11-19 11:44 | disposition home or self-care (01) ==
LOC: OR 06:09
PROVIDERS: ATTEND Surgery
DX: K42.0 Umbilical hernia with obstruction, without gangrene (principal); J44.9 Chronic obstructive pulmonary disease, unspecified; J45.909 Unspecified asthma, uncomplicated; Z87.891 Personal history of nicotine dependence; E11.9 Type 2 diabetes mellitus without complications; M79.7 Fibromyalgia; I10 Essential (primary) hypertension; M19.90 Unspecified osteoarthritis, unspecified site; G25.81 Restless legs syndrome; Z79.891 Long term (current) use of opiate analgesic; Z79.51 Long term (current) use of inhaled steroids; Z79.899 Other long term (current) drug therapy; Z88.6 Allergy status to analgesic agent; Z88.1 Allergy status to other antibiotic agents; Z88.8 Allergy status to other drugs, medicaments and biological substances; Z91.018 Allergy to other foods; Z91.09 Other allergy status, other than to drugs and biological substances; Z91.030 Bee allergy status; Z91.038 Other insect allergy status; Z88.5 Allergy status to narcotic agent; Z88.0 Allergy status to penicillin; Z91.013 Allergy to seafood
CPT/HCPCS: 49653; C1781; J2250; J1644; J1100; J2710; J2405; J2001; J3010; J1170; J0330; J2704

== ENCOUNTER → 2016-12-18 | Outpatient (CLI) | payer OTHER ==
[2016-12-18 16:19] LABS: ALT 21 U/L (9-52); AST 15 U/L (14-36); Alkaline Phosphatase 70 U/L (38-126); Anion Gap 9 mmol/L; Bilirubin, Delta 0.2 mg/dL (0.0-0.2); Blood Urea Nitrogen 17 mg/dL (7-17); Calcium 9.4 mg/dL (8.4-10.2); Carbon Dioxide 23 mmol/L (22-30); Chloride 107 mmol/L (98-107); Glucose 90 mg/dL (74-99); Non-African American GFR(MDRD) >60 (>60 ml/min/1.73 sqM); Sodium 139 mmol/L (137-145); Total Bilirubin 0.3 mg/dL (0.2-1.3); Total Protein 6.9 g/dL (6.3-8.2)
[2016-12-18 16:24] LABS: CH 30.5; CHCM 33.1; HCT 40.7 % (34.0-46.0); HDW 2.35; HGB 13.4 gm/dL (11.4-16.0); MCH 30.4 pg (25.0-35.0); MCHC 32.8 g/dL (31.0-37.0); MCV 92.7 fL (80.0-100.0); Mean Platelet Volume 6.6; RBC 4.39 m/uL (3.80-5.40); RDW 12.8 % (11.5-15.5); WBC 6.3 k/uL (3.8-10.6)
[2016-12-19 15:11] LABS: Hepatits C Virus RNA, Quant <12 IU/mL (<12); LOG HCV IU/mL <1.08 (<1.08)
== END | disposition home or self-care (01) ==
LOC: LABWHC1 15:23
PROVIDERS: ATTEND Physician Assistant
DX: B18.2 Chronic viral hepatitis C (principal)
CPT/HCPCS: 36415; 80053; 82248; 85027; 87522

== ENCOUNTER → 2017-03-10 | Outpatient (CLI) | payer OTHER ==
[2017-03-10 14:11] VITALS: BP 123/89; PULSE 110; RESP 16; TEMP 97.7
--- NOTE | 2017-03-10 14:33 | P.PN ---
Progress Note - Text Patient returns for followup for chronic neck and back pain with radiation to all extremities. Patient recently underwent bilateral cervical RFA, which has provided relief in the interval since she had them done. Patient continues on oxycodone and tramadol medications for pain from PCP with good relief. Patient denies adverse drug effects from medications. Today, pt denies new-onset weakness, bowel/bladder incontinence, or any other signs or symptoms of cauda equina syndrome. There are no signs of acute intoxication, and no indications of medication diversion or overuse. In addition to above, 13-point review of systems is also negative for chest pain , shortness of breath, changes in vision, changes in hearing, new onset weakness , abdominal pain, diarrhea, extreme fatigue, malaise, fever, skin changes, homicidal or suicidal ideation, or bowel or bladder incontinence. Vital Signs: Reviewed in EMR Gen: WDWN, AAOx3, NAD HEENT: NCAT, EOMI, hearing grossly normal Pulm: resp unlabored Abd: soft, NT, ND Neck: supple, trachea midline ROM in flexion cervical spine: reduced ROM in extension cervical spine: reduced Cervical paravertebral tenderness: + R > L Cervical Facet tenderness: + bilateral Spurling's: neg Upper extremity: decreased insulation engineman strength secondary to pain ROM in flexion lumbar spine: reduced ROM in extension lumbar spine: reduced Lumbar paravertebral tenderness: + Facet loading: + bilateral SI joint tenderness: + Jaya's test: + R > L Straight leg raise: neg Neuro: CN II-XII grossly intact, muscle strength lower extremities PRESERVED Imaging: Reviewed in EMR Assessment: 1. cervical spondylosis 2. lumbar spondylosis 3. chronic pain syndrome Plan: 1. Explanation: Opioid and psychological risk scores were reviewed. Diagnoses , prognoses, and multiple treatment options including but not limited to physical therapy, interventional therapies, adjuvant medical therapies, narcotic medication therapies, and surgery were discussed with the patient and all questions were answered to the patient's satisfaction. 2. Opioid agreement: Patient has previously signed narcotic agreement, and was orally counseled to not overuse, abuse, divert, or cell medications, and to take them as prescribed by only 1 healthcare provider. The patient was also counseled to store opioid medications in a safe and preferably locked location. Patient was also counseled against driving or operating heavy equipment while using narcotic medications and also to not use alcohol or any illicit or recreational drugs. The patient verbalized understanding that lack of compliance with any of the above and likely result in failure to renew narcotic prescriptions, possible discharge from the clinic, and possible legal ramifications thereafter if indicated. 3. Counseling: The patient was counseled extensively on SMOKING CESSATION, BODY MASS INDEX, EXERCISE. Specifically, the patient was instructed regarding the importance of smoking cessation, weight control, and exercise in the context of both chronic pain and overall health. 4. Procedures: repeat R, then L lumbar RFA 5. Consultations: None 6. Investigations: None 7. Medications: magnesium oxide 400 mg #30 with three refills 8. Disposition: f/u for procedure as scheduled PQRS measures: 1-Patient's medications are documented in the chart. 2-Tobacco use is negative, counseling given 3-Patient has not had a pneumococcal vaccine. 4-Advanced care planning discussed, patient not eligible. 5-Opioid contract signed with the patient. 6-Pain positive, follow-up visit or procedure scheduled 7-Patient's blood pressure measured and documented, within normal limits. 8-Patient's weight was measured, and body mass index ABOVE the normal limits, and counseling was done. Patient instructed to follow up with PCP. 9-Patient WAS NOT identified as an unhealthy alcohol user.
== END | disposition home or self-care (01) ==
LOC: PNWHC3 12:47
PROVIDERS: ATTEND Anesthesiology
DX: M47.816 Spondylosis without myelopathy or radiculopathy, lumbar region (principal); M47.812 Spondylosis without myelopathy or radiculopathy, cervical region; G89.4 Chronic pain syndrome
CPT/HCPCS: 99211

== ENCOUNTER 2017-04-13 06:15 | Day surgery (SDC) | payer OTHER ==
[2017-04-08 14:55] VITALS: BMI 26.0
[~2017-04-13 06:15] MED LIST changes: -CLINDAMYCIN 900 MG in DEXTROSE 5% IN WATER 50 ML IVPB ONE; -DEXAMETHASONE SOD PHOSPHATE 10 MG/ML 1 ML VIAL IV ONE; -HEPARIN SODIUM,PORCINE 5,000 UNIT/ML 1 ML VIAL SQ ONE; +LACTATED RINGERS 1,000 ML IV SCH; -LIDOCAINE 1% 20 ML VIAL (10MG/ML) FOR IV START INTRADERMA PRN; -MIDAZOLAM 2 MG/2 ML VIAL IV PRN; -ONDANSETRON 4 MG/2 ML VIAL IVP ONE; -SCOPOLAMINE 1.5MG/72HR PATCH TRANSDERM ONE
[2017-04-13 06:26] VITALS: RESP 18; TEMP 98
[2017-04-13] MEDS ORDERED: LACTATED RINGERS 1,000 ML IV ONE (06:30)
[2017-04-13] MEDS ORDERED: LIDOCAINE 1% 20 ML VIAL (10MG/ML) FOR IV START INTRADERMA ONE (06:31)
[2017-04-13 07:27] LABS: Glucose,Whole Blood 90 mg/dL (75-99)
--- NOTE | 2017-04-13 07:47 | P.PCN ---
Date of Procedure: 04/13/17 Preoperative Diagnosis: Lumbar spondylosis without myelopathy Postoperative Diagnosis: Same as above Procedure(s) Performed: Right lumbar medial branch radiofrequency ablation under fluoroscopic guidance for levels L5-S1, L4-5, and L3-4. Implants: Anesthesia: other (IV moderate conscious sedation with versed and fentanyl) Surgeon: Merlin Mendez Pathology: none sent Condition: stable Disposition: PACU Indications for Procedure: Operative Findings: Description of Procedure: The patient was seen in preop holding area consent was obtained then she was brought into the procedure room and placed in prone position. Skin was prepped with ChloraPrep and draped in a sterile manner. Lidocaine 1% was used to numb the skin up at the target points that were chosen as follows: For the L5-S1 level which corresponds to the dorsal ramus of L5 the target point was at the superior medial aspect of the sacral ala on the right side of the spine on the AP view of fluoroscopy and for the L3 and L4 medial branches the target points were the connection between the transverse process and the superior articular process of L4 and L5 vertebra respectively on the right oblique view of fluoroscopy. Used 18-gauge 100 mm in length with 10 mm of curved active tip radio frequency ablation needles for this procedure. I placed the active tips as parallel as possible to the medial branches tracks by going in a superior medial direction. AP, oblique, and lateral views of fluoroscopy were used to verify needle tip position. Motor stimulation was done which showed local twitches of these needles with no radiation of twitching to the right lower extremity. After that I prepared a solution of 2 MLS Marcaine 0.5% +40 mg of Kenalog and 1 mL of the solution was given in each needle. then Radiofrequency ablation was started for 90 seconds at 80C and was repeated one more time after turning the bevels 180 and withdrawing them by 1 or 2 mm. Patient tolerated procedure well.
[2017-04-13 08:12] VITALS: BP 118/78; PULSE 87
--- NOTE | 2017-04-13 08:12 | FL ---
EXAMINATION TYPE: FL guided pain mgmt statistic DATE OF EXAM: 04/13/2017 HISTORY: Flouroscopy time 13 seconds of fluoroscopy provided. IMPRESSION: 1. Fluoroscopy time.
[2017-04-13] MEDS ORDERED: IV FLUID CONTINUATION 1,000 ML IV ONE (08:17)
[2017-04-13 08:21] LABS: Glucose,Whole Blood 93 mg/dL (75-99)
== END 2017-04-13 09:01 | disposition home or self-care (01) ==
LOC: ORPAIN 06:15
PROVIDERS: ATTEND Anesthesiology
DX: M47.816 Spondylosis without myelopathy or radiculopathy, lumbar region (principal); I10 Essential (primary) hypertension; E11.9 Type 2 diabetes mellitus without complications; J44.9 Chronic obstructive pulmonary disease, unspecified; J45.909 Unspecified asthma, uncomplicated; Z79.899 Other long term (current) drug therapy
CPT/HCPCS: 64635; 64636; 99152; 99153; J2250; J3301; J3010

== ENCOUNTER 2017-05-13 06:59 | Day surgery (SDC) | payer OTHER ==
[2017-05-13 08:01] VITALS: RESP 16; TEMP 97.9
[2017-05-13] MEDS ORDERED: LACTATED RINGERS 1,000 ML IV ONE (08:06)
[2017-05-13] MEDS ORDERED: LIDOCAINE 1% 20 ML VIAL (10MG/ML) FOR IV START INTRADERMA ONE (08:06)
[2017-05-13 08:10] LABS: Glucose,Whole Blood 83 mg/dL (75-99)
[2017-05-13] MEDS ORDERED: LACTATED RINGERS 1,000 ML IV SCH (08:30)
[2017-05-13] MEDS ORDERED: IV FLUID CONTINUATION 1,000 ML IV ONE (08:58)
--- NOTE | 2017-05-13 08:58 | P.PCN ---
Date of Procedure: 05/13/17 Surgeon: Manjit Fan Pathology: none sent Condition: stable Disposition: PACU Description of Procedure: PREOPERATIVE DIAGNOSIS: Lumbar spondylosis without myelopathy and facet arthropathy POSTOPERATIVE DIAGNOSIS: Lumbar spondylosis without myelopathy and facet arthropathy PROCEDURES: Left Radiofrequency thermocoagulation, L3-L4, L4-L5, and L5-S1 medial branch, with fluoroscopic guidance. ANESTHESIA: 1% lidocaine plain; Conscious sedation with versed/fentanyl EBL: Minimal PROCEDURE INDICATION: The patient with low back pain secondary to lumbar arthropathy who had more than 50% relief of pain with previous diagnostic lumbar medial branch block with bupivacaine. Patient presents for left lumbar RFA today after good relief from right side; no use of blood thinners. PROCEDURE DESCRIPTION / TECHNIQUE: The patient was seen and identified in the preoperative area. Risks, benefits, complications, and alternatives were discussed with the patient (including but not limited to incomplete pain relief , bleeding, infection, nerve damage, and allergies to medications), the patient agreed to proceed with the procedure and signed the consent after all questions were answered. Patient was taken to the OR and time out was completed to verify proper patient , position, laterality of pain, and allergies. Pt was placed in the prone position. IV was started. Vital signs remained stable throughout the procedure. A pillow was placed under the patients chest to decrease lordosis. The lumbosacral area was prepped and draped in the usual sterile fashion. Vital signs were closely monitored during the procedure. Conscious sedation was used during the procedure to decrease patients anxiety. Using AP and then oblique fluoroscopy, the eye of the Riley dog corresponding to the connection between the superior and transverse articular processes of left L4, L5 and top of the sacrum were identified, marked, and localized with 1% lidocaine. Subsequently, a 18 gauge, 100-mm radiofrequency cannula with a 10-mm active tip was advanced guided by fluoroscopy to each of the eyes of the Riley dog at left L3, L4, and L5 medial branches. Each site then underwent sensory testing at 50 Hz and 0 to 1 volt and motor testing at 2 Hz and 0 to 3 volt with local stimulation, but no radicular symptoms down the legs. Thereafter the left L3, L4, and L5 medial branch sites underwent radiofrequency thermocoagulation at 80 degrees Celsius for 90 seconds after injecting 0.5 ml of PF lidocaine 1%. After thermocoagulation, 1 ml of the block solution containing Kenalog 40 mg and 2 mL of preservative-free normal saline was injected at the left L3, L4, and L5 medial branch levels after negative aspiration of CSF and blood and with no paresthesias. Cannulas were retracted while injecting lidocaine 1% until the needles were removed. At the end of the procedure, the skin was cleansed and bandages were applied. COMPLICATIONS: No acute complications. DISPOSITION / PLANS: The patient was placed in a supine position and transferred to the recovery area in a stable condition for observation and was discharged from the recovery room after meeting discharge criteria. Home discharge instructions given to the patient by the staff. The patient was reexamined prior to discharge. The patient will schedule a follow up in the clinic in 2-4 weeks as bilateral RFAs completed.
--- NOTE | 2017-05-13 09:12 | FL ---
EXAMINATION TYPE: FL guided pain mgmt statistic DATE OF EXAM: 05/13/2017 HISTORY: Pain Dr. Fan supervised use of jennifer for a lt side lumbar radio freq. 11 secs fluoro and 3 paper images
[2017-05-13] MEDS ORDERED: ONDANSETRON 4 MG/2 ML VIAL IVP ONE (09:19)
[2017-05-13 09:27] VITALS: BP 109/75; PULSE 88
== END 2017-05-13 09:49 | disposition home or self-care (01) ==
LOC: ORPAIN 06:59
PROVIDERS: ATTEND Anesthesiology
DX: M47.816 Spondylosis without myelopathy or radiculopathy, lumbar region (principal); I10 Essential (primary) hypertension; E11.9 Type 2 diabetes mellitus without complications; J45.909 Unspecified asthma, uncomplicated; J44.9 Chronic obstructive pulmonary disease, unspecified
CPT/HCPCS: 64635; 64636; 99152; J2250; J3301; J2405; J3010; 99153

== ENCOUNTER → 2017-06-09 | Outpatient (CLI) | payer OTHER ==
[2017-06-09 13:37] VITALS: BP 119/86; PULSE 115; RESP 16
--- NOTE | 2017-06-09 13:56 | P.PN ---
Progress Note - Text Progress Note Date: 06/09/17 Patient returns for followup for chronic neck and back pain with radiation to all extremities. Patient recently underwent bilateral lumbar RFA, which has provided relief in the interval since she had them done. Patient continues on oxycodone and tramadol medications for pain from PCP with good relief and magnesium oxide from our clinic. Patient denies adverse drug effects from medications. Today, pt denies new-onset weakness, bowel/bladder incontinence, or any other signs or symptoms of cauda equina syndrome. There are no signs of acute intoxication, and no indications of medication diversion or overuse. In addition to above, 13-point review of systems is also negative for chest pain , shortness of breath, changes in vision, changes in hearing, new onset weakness , abdominal pain, diarrhea, extreme fatigue, malaise, fever, skin changes, homicidal or suicidal ideation, or bowel or bladder incontinence. Vital Signs: Reviewed in EMR Gen: WDWN, AAOx3, NAD HEENT: NCAT, EOMI, hearing grossly normal Pulm: resp unlabored Abd: soft, NT, ND Neck: supple, trachea midline ROM in flexion lumbar spine: reduced ROM in extension lumbar spine: reduced Lumbar paravertebral tenderness: + Facet loading: + bilateral SI joint tenderness: + Jaya's test: + bilateral, R > L Straight leg raise: neg Neuro: CN II-XII grossly intact, muscle strength lower extremities PRESERVED Imaging: Reviewed in EMR Assessment: 1. cervical spondylosis 2. lumbar spondylosis 3. chronic pain syndrome Plan: 1. Explanation: Opioid and psychological risk scores were reviewed. Diagnoses , prognoses, and multiple treatment options including but not limited to physical therapy, interventional therapies, adjuvant medical therapies, narcotic medication therapies, and surgery were discussed with the patient and all questions were answered to the patient's satisfaction. 2. Opioid agreement: Patient has previously signed narcotic agreement, and was orally counseled to not overuse, abuse, divert, or cell medications, and to take them as prescribed by only 1 healthcare provider. The patient was also counseled to store opioid medications in a safe and preferably locked location. Patient was also counseled against driving or operating heavy equipment while using narcotic medications and also to not use alcohol or any illicit or recreational drugs. The patient verbalized understanding that lack of compliance with any of the above and likely result in failure to renew narcotic prescriptions, possible discharge from the clinic, and possible legal ramifications thereafter if indicated. 3. Counseling: The patient was counseled extensively on SMOKING CESSATION, BODY MASS INDEX, EXERCISE. Specifically, the patient was instructed regarding the importance of smoking cessation, weight control, and exercise in the context of both chronic pain and overall health. 4. Procedures: none for now 5. Consultations: None 6. Investigations: None 7. Medications: magnesium oxide 400 mg #30 with five refills 8. Disposition: f/u for procedure as scheduled PQRS measures: 1-Patient's medications are documented in the chart. 2-Tobacco use is negative, counseling given 3-Patient has not had a pneumococcal vaccine. 4-Advanced care planning discussed, patient not eligible. 5-Opioid contract signed with the patient. 6-Pain positive, follow-up visit or procedure scheduled 7-Patient's blood pressure measured and documented, within normal limits. 8-Patient's weight was measured, and body mass index ABOVE the normal limits, and counseling was done. Patient instructed to follow up with PCP. 9-Patient WAS NOT identified as an unhealthy alcohol user.
== END | disposition home or self-care (01) ==
LOC: PNWHC3 13:08
PROVIDERS: ATTEND Anesthesiology
DX: M47.812 Spondylosis without myelopathy or radiculopathy, cervical region (principal); M47.816 Spondylosis without myelopathy or radiculopathy, lumbar region; G89.4 Chronic pain syndrome
CPT/HCPCS: 99211

== ENCOUNTER → 2017-09-01 | Outpatient (CLI) | payer OTHER ==
[2017-09-01 12:11] VITALS: BP 120/84; PULSE 98; RESP 18; TEMP 98.4
--- NOTE | 2017-09-01 12:24 | P.PN ---
Progress Note - Text Progress Note Date: 09/01/17 Patient returns for followup for chronic neck and back pain with radiation to all extremities. Patient underwent bilateral lumbar RFA in February and March, which has provided good relief in the interval since she had them done. Patient continues on oxycodone and tramadol medications for pain from PCP with good relief and magnesium oxide from our clinic. Patient denies adverse drug effects from medications. Today, pt denies new-onset weakness, bowel/bladder incontinence, or any other signs or symptoms of cauda equina syndrome. There are no signs of acute intoxication, and no indications of medication diversion or overuse. In addition to above, 13-point review of systems is also negative for chest pain , shortness of breath, changes in vision, changes in hearing, new onset weakness , abdominal pain, diarrhea, extreme fatigue, malaise, fever, skin changes, homicidal or suicidal ideation, or bowel or bladder incontinence. Vital Signs: Reviewed in EMR Gen: WDWN, AAOx3, NAD HEENT: NCAT, EOMI, hearing grossly normal Pulm: resp unlabored Abd: soft, NT, ND Neck: supple, trachea midline ROM in flexion cervical spine: reduced ROM in extension cervical spine: reduced Cervical facet tenderness: bilateral, L > R Spurling's: negative ROM in flexion lumbar spine: reduced ROM in extension lumbar spine: reduced Lumbar paravertebral tenderness: + Facet loading: + bilateral SI joint tenderness: + Jaya's test: + bilateral, R > L Straight leg raise: neg Neuro: CN II-XII grossly intact, muscle strength lower extremities PRESERVED Imaging: Reviewed in EMR Assessment: 1. cervical spondylosis 2. lumbar spondylosis 3. chronic pain syndrome Plan: 1. Explanation: Opioid and psychological risk scores were reviewed. Diagnoses , prognoses, and multiple treatment options including but not limited to physical therapy, interventional therapies, adjuvant medical therapies, narcotic medication therapies, and surgery were discussed with the patient and all questions were answered to the patient's satisfaction. 2. Opioid agreement: Patient has previously signed narcotic agreement, and was orally counseled to not overuse, abuse, divert, or cell medications, and to take them as prescribed by only 1 healthcare provider. The patient was also counseled to store opioid medications in a safe and preferably locked location. Patient was also counseled against driving or operating heavy equipment while using narcotic medications and also to not use alcohol or any illicit or recreational drugs. The patient verbalized understanding that lack of compliance with any of the above and likely result in failure to renew narcotic prescriptions, possible discharge from the clinic, and possible legal ramifications thereafter if indicated. 3. Counseling: The patient was counseled extensively on SMOKING CESSATION, BODY MASS INDEX, EXERCISE. Specifically, the patient was instructed regarding the importance of smoking cessation, weight control, and exercise in the context of both chronic pain and overall health. 4. Procedures: R cervical RFA, then left cervical RFA 5. Consultations: None 6. Investigations: None 7. Medications: magnesium oxide 400 mg #30 with five refills 8. Disposition: f/u for procedure as scheduled PQRS measures: 1-Patient's medications are documented in the chart. 2-Tobacco use is negative, counseling given 3-Patient has not had a pneumococcal vaccine. 4-Advanced care planning discussed, patient not eligible. 5-Opioid contract signed with the patient. 6-Pain positive, follow-up visit or procedure scheduled 7-Patient's blood pressure measured and documented, within normal limits. 8-Patient's weight was measured, and body mass index ABOVE the normal limits, and counseling was done. Patient instructed to follow up with PCP. 9-Patient WAS NOT identified as an unhealthy alcohol user.
== END | disposition home or self-care (01) ==
LOC: PNWHC3 11:43
PROVIDERS: ATTEND Anesthesiology
DX: G89.29 Other chronic pain (principal); M54.2 Cervicalgia; M47.812 Spondylosis without myelopathy or radiculopathy, cervical region; M47.816 Spondylosis without myelopathy or radiculopathy, lumbar region; Z79.899 Other long term (current) drug therapy; Z79.891 Long term (current) use of opiate analgesic
CPT/HCPCS: 99211

== ENCOUNTER 2017-10-01 06:07 | Day surgery (SDC) | payer OTHER ==
[2017-09-23 14:18] VITALS: BMI 26.6
[2017-10-01] MEDS ORDERED: LACTATED RINGERS 1,000 ML IV SCH (06:08)
[2017-10-01] MEDS ORDERED: LIDOCAINE 1% 20 ML VIAL (10MG/ML) FOR IV START INTRADERMA ONE (07:30)
[2017-10-01 07:35] LABS: Glucose,Whole Blood 77 mg/dL (75-99)
--- NOTE | 2017-10-01 08:10 | P.PCN ---
Date of Procedure: 10/01/17 Procedure(s) Performed: PREOPERATIVE DIAGNOSIS: Cervical spondylosis with Facet Arthropathy without myelopathy. POSTOPERATIVE DIAGNOSIS: Cervical spondylosis with Facet Arthropathy without myelopathy. PROCEDURES: Radiofrequency thermocoagulation, Right C3-4, C4-5, C5-6 medial branch with Fluroscopy Guidence ANESTHESIA: Local with 1% lidocaine 4 ml , moderate sedation with fentanyl 200 micrograms and Versed.2 mg EBL: Minimal PROCEDURE INDICATION: The patient with neck pain secondary to cervical arthropathy who had more than 50% relief of her pain with previous diagnostic cervical medial branch block. PROCEDURE DESCRIPTION / TECHNIQUE: The patient was seen and identified in the preoperative area. Risks, benefits, complications, and alternatives were discussed with the patient, the patient agreed to proceed with the procedure and signed the consent. IV was started. Vital signs remained stable throughout the procedure. Patient was taken to the OR and time out was completed. The patient was placed in the prone position on the procedure table. A pillow was placed under the patients chest to increase the cervical interlaminar space. The cervical area was prepped and draped in the usual sterile fashion. Critical pause was taken. Vital signs were closely monitored during the procedure. Conscious sedation was used during the procedure to decrease patients anxiety. Using cross-table lateral fluoroscopy, the centroid of the trapezoid of Right C3, C4, C5, were identified, marked, and localized with 1% lidocaine. Subsequently, a 20 [id number] radiofrequency cannula with a 10-mm active tip was advanced guided by fluoroscopy to the centroid of the trapezoid of the right C3, C4, C5, . Needle tip position was confirmed at the centroid of the trapezoids of right C3, C4, C5, with anteroposterior fluoroscopy. Each site then underwent sensory testing at 50 Hz and 0 to 1 volt and motor testing at 2 Hz and 0 to 3 volt with local stimulation, but no radicular symptoms down the arm. Thereafter the right C3, C4, C5 sites underwent radiofrequency thermocoagulation at 80 degrees celsius for 90 seconds after injecting 0.5 ml of PF lidocaine 1%. After thermocoagulation, 1 ml of the block solution containing Depomedrol 40 mg and 3 mL of preservative-free normal saline was injected at the C3, C4, C5, levels after negative aspiration of CSF and blood and with no paresthesias. Cannulas were retracted while injecting lidocaine 1% until the needle is out. Skin was cleansed and bandages were applied. COMPLICATIONS: No acute complications. COMMENTS: DISPOSITION / PLANS: The patient was placed in a supine position and transferred to the recovery area in a stable condition for observation and was discharged from the recovery room after meeting discharge criteria. Home discharge instructions given to the patient by the staff. The patient was reexamined prior to discharge. The patient will schedule a follow up in the clinic in 2-4 weeks.
[2017-10-01 08:17] VITALS: TEMP 98
[2017-10-01 08:22] VITALS: RESP 16
[2017-10-01 08:32] VITALS: BP 104/68; PULSE 101
[2017-10-01 08:38] LABS: Glucose,Whole Blood 95 mg/dL (75-99)
[2017-10-01] MEDS ORDERED: IV FLUID CONTINUATION 1,000 ML IV ONE (08:41)
--- NOTE | 2017-10-01 08:56 | FL ---
Fluoroscopy INDICATION: Pain FINDINGS: Fluoroscopy time: 20 seconds. Images obtained: 2. IMPRESSIONS: 1. Documentation of fluoroscopy.
== END 2017-10-01 08:50 | disposition home or self-care (01) ==
LOC: ORPAIN 06:07
PROVIDERS: ATTEND Specialist
DX: M47.812 Spondylosis without myelopathy or radiculopathy, cervical region (principal); J44.9 Chronic obstructive pulmonary disease, unspecified; K21.9 Gastro-esophageal reflux disease without esophagitis; E11.9 Type 2 diabetes mellitus without complications; Z91.013 Allergy to seafood
CPT/HCPCS: 64633; 64634 ×2; J2250; J1030; J3010; 99152; 99153

== ENCOUNTER → 2017-10-05 | Outpatient (CLI) | payer OTHER ==
--- NOTE | 2017-10-05 12:41 | MR ---
EXAMINATION TYPE: MR brain wo con DATE OF EXAM: 10/05/2017 6:50 AM COMPARISON: 09/20/2014 HISTORY: Fibromyalgia, memory loss FINDINGS: The ventricles, basal cisterns and sulci overlying the cerebral convexities are mildly enlarged. There is evidence of mild periventricular white matter ischemic demyelination. Demyelinating disease is within the differential diagnosis. Remote deep white matter insults are also noted. No acute edema is seen on diffusion weighted imaging. There is no evidence for midline shift or mass effect. Acute intracranial hemorrhage or extra-axial collection is not evident. Chronic paranasal sinusitis. Mastoid air cells are well-aerated. IMPRESSION: Stable Age-related atrophic and chronic small vessel ischemic change. Demyelinating disease difficul t to exclude. No acute intracranial process at this time.
== END | disposition home or self-care (01) ==
LOC: RADMRIMAIN 06:10
PROVIDERS: ATTEND Psychiatry & Neurology Neurology
DX: G31.1 Senile degeneration of brain, not elsewhere classified (principal); I67.82 Cerebral ischemia
CPT/HCPCS: 70551

== ENCOUNTER 2017-10-27 06:05 | Day surgery (SDC) | payer OTHER ==
[2017-10-23 13:19] VITALS: BMI 26.6
[2017-10-27 06:41] VITALS: RESP 16; TEMP 98.2
[2017-10-27] MEDS ORDERED: LACTATED RINGERS 1,000 ML IV ONE (06:41)
[2017-10-27] MEDS ORDERED: LIDOCAINE 1% 20 ML VIAL (10MG/ML) FOR IV START INTRADERMA ONE (06:42)
[2017-10-27 06:58] LABS: Glucose,Whole Blood 85 mg/dL (75-99)
[2017-10-27] MEDS ORDERED: ONDANSETRON 4 MG/2 ML VIAL IVP STA (07:11)
[2017-10-27] MEDS ORDERED: LACTATED RINGERS 1,000 ML IV SCH (07:15)
[2017-10-27] MEDS ORDERED: IV FLUID CONTINUATION 1,000 ML IV ONE (07:42)
[2017-10-27 08:02] VITALS: BP 109/74; PULSE 91
--- NOTE | 2017-10-27 08:39 | FL ---
Fluoroscopy HISTORY: Pain 18 seconds fluoroscopy time supplied to the referring clinician. 1 intraoperative C-arm images docum ent the procedure. See dictated report from anesthesia.
--- NOTE | 2017-10-27 08:59 | P.PCN ---
Date of Procedure: 10/27/17 Surgeon: Manjit Fan Pathology: none sent Condition: stable Disposition: PACU Description of Procedure: PREOPERATIVE DIAGNOSIS: Cervical spondylosis without myelopathy and facet arthropathy. POSTOPERATIVE DIAGNOSIS: Cervical spondylosis without myelopathy and facet arthropathy. PROCEDURES: Radiofrequency thermocoagulation, C3-C4, C4-C5, C5-C6 medial branch , with fluoroscopic guidance, left side. ANESTHESIA: Local with 1% lidocaine; conscious sedation EBL: Minimal PROCEDURE INDICATION: The patient with neck pain secondary to cervical arthropathy who had more than 50% relief of her pain with previous diagnostic cervical medial branch block. No use of blood thinners. PROCEDURE DESCRIPTION / TECHNIQUE: The patient was seen and identified in the preoperative area. Risks, benefits, complications, and alternatives were discussed with the patient (with risks including but not limited to bleeding, infection, nerve damage, incomplete pain relief, and allergic reactions to medications), the patient agreed to proceed with the procedure and signed the informed consent after all questions were answered. IV was started. Vital signs remained stable throughout the procedure. Patient was taken to the OR and time out was completed. The patient was placed in the prone position on the procedure table. A pillow was placed under the patients chest to increase the cervical interlaminar space. The cervical area was prepped and draped in the usual sterile fashion. Critical pause was taken. Vital signs were closely monitored during the procedure. Conscious sedation was used during the procedure to decrease patients anxiety. Using cross-table lateral fluoroscopy, the centroid of the trapezoid of C3, C4, C5, C6, and C7 were identified, marked, and localized with 1% lidocaine. Subsequently, a 21 gauge 100-mm radiofrequency cannula with a 5-mm active tip was advanced guided by fluoroscopy to the centroid of the trapezoid of C3, C4, and C5. Needle tip position was confirmed at the centroid of the trapezoids of C3, C4, and C5 with anteroposterior fluoroscopy. Each site then underwent sensory testing at 50 Hz and 0 to 1 volt and motor testing at 2 Hz and 0 to 3 volt with local stimulation, but no radicular symptoms down the arm. Thereafter C3, C4, and C5 sites underwent radiofrequency thermocoagulation at 80 degrees celsius for 90 seconds after injecting 0.5 ml of PF lidocaine 1%. After thermocoagulation, 1 ml of the block solution containing Decadron 10 mg and 2 mL of preservative-free normal saline was injected at the C3, C4, and C5 levels after negative aspiration of CSF and blood and with no paresthesias. Cannulas were retracted while injecting lidocaine 1% until the needle is out. Skin was cleansed and bandages were applied. COMPLICATIONS: No acute complications. COMMENTS: DISPOSITION / PLANS: The patient was placed in a supine position and transferred to the recovery area in a stable condition for observation and was discharged from the recovery room after meeting discharge criteria. Home discharge instructions given to the patient by the staff. The patient was reexamined prior to discharge. The patient will schedule a follow up in the clinic in 2-4 weeks as bilateral RFA completed.
== END 2017-10-27 08:23 | disposition home or self-care (01) ==
LOC: ORPAIN 06:05
PROVIDERS: ATTEND Anesthesiology
DX: M47.812 Spondylosis without myelopathy or radiculopathy, cervical region (principal); N95.9 Unspecified menopausal and perimenopausal disorder; J44.9 Chronic obstructive pulmonary disease, unspecified; E11.9 Type 2 diabetes mellitus without complications; K21.9 Gastro-esophageal reflux disease without esophagitis; Z91.013 Allergy to seafood
CPT/HCPCS: 64633; 64634 ×2; J2250; J1100; J2405; J3010; 99152; 99153

== ENCOUNTER → 2017-10-29 | Outpatient (CLI) | payer OTHER ==
[2017-10-29 08:21] LABS: Blood Urea Nitrogen 17 mg/dL (7-17)
--- NOTE | 2017-10-29 10:05 | CT ---
EXAMINATION TYPE: CT abdomen pelvis w con DATE OF EXAM: 10/29/2017 COMPARISON: 12/15/2012 INDICATION: Left lower quadrant pain, pelvic pain, diverticulitis DLP: 506.5 mGycm, Automated exposure control for dose reduction was used. CONTRAST: 100 mL of Omnipaque 300. Study performed with Oral Contrast TECHNIQUE: Axial images were obtained from above the diaphragm to the pubic rami in the axial plane a t 5 mm thick sections. Reconstructed images are reviewed on the computer in the coronal plane. FINDINGS: Limited CT sections are obtained the lung bases. The lung bases are clear. CT ABDOMEN: Liver: Normal Spleen: Normal Pancreas: Normal Adrenal glands: The adrenal glands are normal. Gallbladder: Surgically absent Kidneys: No masses are evident. No hydronephrosis is present. No cysts are present. Delayed images were obtained through the kidneys, which remain unremarkable. Aorta: Vascular calcification is within the aorta. Inferior vena cava: Normal. CT PELVIS: Fecal debris is within the colon. Minimal diverticulosis within the sigmoid colon. There are loops of bowel which are incompletely distended or lack oral contrast limiting their evaluation. No suspiciou s inflammatory changes are adjacent to the colon to suggest acute diverticulitis. Appendix: Not clearly identified. No suspicious tubular structures or inflammatory changes are eviden t. Urinary bladder: Normal. Genitourinary structures: Uterus and ovaries are not identified. Osseous structures: No suspicious lytic or sclerotic lesions. IMPRESSIONS: 1. There is some mild diverticulosis without evidence of acute diverticulitis.
== END | disposition home or self-care (01) ==
LOC: RADCTMAIN 07:30
PROVIDERS: ATTEND Surgery
DX: K57.30 Diverticulosis of large intestine without perforation or abscess without bleeding (principal)
CPT/HCPCS: 82565; 84520; 74177; 36415; Q9967

== ENCOUNTER → 2017-12-07 | Outpatient (CLI) | payer OTHER ==
[2017-12-07 12:43] VITALS: BP 127/87; PULSE 99; RESP 16; TEMP 97.9
--- NOTE | 2017-12-07 12:59 | P.PN ---
Progress Note - Text Progress Note Date: 12/07/17 Patient returns for followup for chronic neck and back pain with radiation to all extremities. Patient underwent bilateral cervical RFA in February and March, which has provided good relief in the interval, although she did have some sunburn-type pain in left neck after RF procedure. Patient continues on oxycodone and tramadol medications for pain from PCP with good relief and magnesium oxide from our clinic. Patient denies adverse drug effects from medications. Today, pt denies new-onset weakness, bowel/bladder incontinence, or any other signs or symptoms of cauda equina syndrome. There are no signs of acute intoxication, and no indications of medication diversion or overuse. In addition to above, 13-point review of systems is also negative for chest pain , shortness of breath, changes in vision, changes in hearing, new onset weakness , abdominal pain, diarrhea, extreme fatigue, malaise, fever, skin changes, homicidal or suicidal ideation, or bowel or bladder incontinence. Vital Signs: Reviewed in EMR Gen: WDWN, AAOx3, NAD HEENT: NCAT, EOMI, hearing grossly normal Pulm: resp unlabored Abd: soft, NT, ND Neck: supple, trachea midline ROM in flexion cervical spine: reduced ROM in extension cervical spine: reduced Cervical facet tenderness: bilateral, L > R Spurling's: negative ROM in flexion lumbar spine: reduced ROM in extension lumbar spine: reduced Lumbar paravertebral tenderness: + Facet loading: + bilateral SI joint tenderness: + Jaya's test: + bilateral, R > L Straight leg raise: neg Neuro: CN II-XII grossly intact, muscle strength lower extremities PRESERVED Imaging: Reviewed in EMR Assessment: 1. cervical spondylosis 2. lumbar spondylosis 3. chronic pain syndrome Plan: 1. Explanation: Opioid and psychological risk scores were reviewed. Diagnoses , prognoses, and multiple treatment options including but not limited to physical therapy, interventional therapies, adjuvant medical therapies, narcotic medication therapies, and surgery were discussed with the patient and all questions were answered to the patient's satisfaction. 2. Opioid agreement: Patient has previously signed narcotic agreement, and was orally counseled to not overuse, abuse, divert, or cell medications, and to take them as prescribed by only 1 healthcare provider. The patient was also counseled to store opioid medications in a safe and preferably locked location. Patient was also counseled against driving or operating heavy equipment while using narcotic medications and also to not use alcohol or any illicit or recreational drugs. The patient verbalized understanding that lack of compliance with any of the above and likely result in failure to renew narcotic prescriptions, possible discharge from the clinic, and possible legal ramifications thereafter if indicated. 3. Counseling: The patient was counseled extensively on BODY MASS INDEX, EXERCISE. Specifically, the patient was instructed regarding the importance of weight control, and exercise in the context of both chronic pain and overall health. 4. Procedures: none for now 5. Consultations: None 6. Investigations: None 7. Medications: magnesium oxide 400 mg #30 with five refills 8. Disposition: f/u for re-eval 12 weeks PQRS measures: 1-Patient's medications are documented in the chart. 2-Tobacco use is negative, counseling given 3-Patient has not had a pneumococcal vaccine. 4-Advanced care planning discussed, patient not eligible. 5-Opioid contract signed with the patient. 6-Pain positive, follow-up visit or procedure scheduled 7-Patient's blood pressure measured and documented, within normal limits. 8-Patient's weight was measured, and body mass index ABOVE the normal limits, and counseling was done. Patient instructed to follow up with PCP. 9-Patient WAS NOT identified as an unhealthy alcohol user.
== END | disposition home or self-care (01) ==
LOC: PNWHC3 11:57
PROVIDERS: ATTEND Anesthesiology
DX: G89.4 Chronic pain syndrome (principal); M47.812 Spondylosis without myelopathy or radiculopathy, cervical region; M47.816 Spondylosis without myelopathy or radiculopathy, lumbar region; M54.2 Cervicalgia; Z79.899 Other long term (current) drug therapy; Z79.891 Long term (current) use of opiate analgesic
CPT/HCPCS: 99211

== ENCOUNTER → 2018-02-23 | Outpatient (CLI) | payer OTHER ==
[2018-02-23 09:25] LABS: HCT 41.3 % (34.0-46.0); HGB 13.7 gm/dL (11.4-16.0); MCH 29.9 pg (25.0-35.0); MCHC 33.1 g/dL (31.0-37.0); MCV 90.3 fL (80.0-100.0); Mean Platelet Volume 6.8; Platelet Count 250 k/uL (150-450); RBC 4.57 m/uL (3.80-5.40); RDW 12.5 % (11.5-15.5); WBC 4.6 k/uL (3.8-10.6)
[2018-02-23 09:42] LABS: Albumin 4.1 g/dL (3.5-5.0); Bilirubin, Delta 0.2 mg/dL (0.0-0.2); Bilirubin,Unconjugated 0.1 mg/dL (0.0-1.1); Total Bilirubin 0.3 mg/dL (0.2-1.3); Total Protein 6.5 g/dL (6.3-8.2)
== END | disposition home or self-care (01) ==
LOC: LABWHC1 08:49
PROVIDERS: ATTEND Physician Assistant
DX: B18.2 Chronic viral hepatitis C (principal)
CPT/HCPCS: 36415; 80076; 85027; 87522

== ENCOUNTER → 2018-03-24 | Outpatient (CLI) | payer OTHER ==
--- NOTE | 2018-03-24 10:03 | MR ---
Exam: MRI CERVICAL SPINE WITHOUT CONTRAST MRI THORACIC SPINE WITHOUT CONTRAST DATE: 03/24/2018. CLINICAL HISTORY: 57-year-old female with paresthesias TECHNIQUE: Multiplanar, multisequence imaging of the cervical spine followed by the thoracic spine is performed without contrast. COMPARISON: Cervical spine, 12/23/2011 FINDINGS: CERVICAL SPINE: There is a new round 6 mm T2 hyperintense lesion within the left vallecular space. No craniocervical junction abnormalities, predental space widening, or prevertebral soft tissue swell ing. Reversal of the normal cervical lordosis but with preserved alignment. Variable mild to moderate disc desiccation. Disc osteophyte complex formation and variable facet and uncovertebral joint arthropathy throughout. No suspicious bone marrow placement. At C2-C3, there is left-sided facet degenerative change without significant canal or foraminal stenos is. At C3-C4, there is left-sided facet and uncovertebral joint degenerative change minimally narrowing t he left-sided neuroforamen. No significant canal stenosis. At C4-C5, there is facet degenerative change and minimal posterior disc bulge. Abutment of the ventra l cord without significant cord deformity is in. No significant spinal canal stenosis. No significant foraminal stenosis. At C5-C6, uncovertebral joint and facet degenerative change, greater on the right. Disc osteophyte co mplexes present indenting the ventral thecal sac but not causing significant spinal canal stenosis. T here is mild right neuroforaminal stenosis. At C6/C7, lobulated disc osteophyte complex with uncovertebral joint degenerative change. Additional facet arthropathy, left greater than right. Changes result in mild right neuroforaminal stenosis. No spinal canal stenosis. C7-T1, no significant canal or foraminal stenosis. No prevertebral or paravertebral soft tissue abnormality seen. Normal course, caliber, and signal intensity of the cervical cord. THORACIC SPINE: Alignment is maintained. No suspicious bone marrow replacement. There is some Modic type I endplate change anteriorly associa costa with endplate spondylosis at T11-T12. Also, fatty matrix hemangioma towards the left in L1. Very minimal anterior wedging of T9 compatible with physiologic wedging or remote injury. Variable mild to moderate disc desiccation especially in the mid to lower thoracic spine. At T7-T8, small left paracentral protrusion without significant canal stenosis. At T8-T9, tiny left paracentral protrusion without significant spinal canal stenosis. At T9-T10, tiny central protrusion without significant spinal canal stenosis. At T11-T12, mild bulging disc and minimal posterior protrusion without spinal canal stenosis. There is scattered facet degenerative change present. On the left, changes result in mild neuroforaminal narrowing at T1-T4 levels. On the right, changes result in mild neuroforaminal narrowing from T1 through T3 levels. Normal course, caliber, and signal intensity of the thoracic spinal cord. Conus medullaris is normal. No prevertebral or paravertebral soft tissue abnormality seen. COMBINED IMPRESSION: CERVICAL SPINE: 1. Mild to moderate multilevel degenerative disc disease redemonstrated disc osteophyte complex forma tion at C4-C5 and C5-C6. 2. Degenerative disc disease has progressed at C3-C4, minimally narrowing the spinal canal at this le raquel. No yaquelin canal compromise. 3. Additional scattered facet and uncovertebral joint arthropathy. Changes result in variable mild ne uroforaminal narrowing. No high-grade foraminal compromise. THORACIC SPINE: 1. Mild to moderate degenerative disc disease mid to lower thoracic spine with tiny disc protrusions. These do not contribute tiny significant spinal canal stenosis. There is some associated mild edemat ous Modic type I endplate change anteriorly at T11-T12. 2. Old minimal anterior compression injury of T9. 3. Scattered facet arthropathy of the thoracic spine causing variable mild neural foraminal narrowing down to T4.
== END | disposition home or self-care (01) ==
LOC: RADMRIMAIN 06:59
PROVIDERS: ATTEND Psychiatry & Neurology Neurology
DX: R20.2 Paresthesia of skin (principal)
CPT/HCPCS: 72141; 72146

== ENCOUNTER → 2018-03-29 | Outpatient (CLI) | payer OTHER ==
[2018-03-29 07:10] LABS: Blood Urea Nitrogen 16 mg/dL (7-17)
--- NOTE | 2018-03-29 09:41 | CT ---
EXAMINATION TYPE: CT abdomen pelvis w con DATE OF EXAM: 03/29/2018 HISTORY: Ulcerative colitis. Abdominal pain. CT DLP: 548.1mGycm Automated Exposure Control for Dose Reduction was Utilized. CONTRAST: CT scan of the abdomen and pelvis is performed with IV Contrast, patient injected with 100 mL of Isov ue 300. COMPARISON: 10/29/2017 FINDINGS: LUNG BASES: No significant abnormality is appreciated. LIVER/GB: No evidence of significant intrahepatic biliary ductal dilatation or discrete evidence of f ocal stenosis in this patient with ulcerative colitis. Focal wedge-shaped area of hypoattenuation is seen on series 3 image 17 and 18 along the falciform ligament, most commonly related to focal fatty i nfiltration. No suspicious masses seen. Gallbladder surgically absent. PANCREAS: Pancreas is slightly bulky and decrease in enhancement which can be normal variant can rela te to the phase of enhancement or can also be seen in autoimmune pancreatitis. Correlation with labor atory values is recommended. SPLEEN: No significant abnormality is seen. ADRENALS: No significant abnormality is seen. KIDNEYS: Kidneys enhance and excrete symmetrically without hydronephrosis. BOWEL: The sigmoid colon is largely decompressed with minimal vasa recta engorgement and few divertic manpreet. Descending colon is also largely decompressed. This does not appear to be from stricturing as th rufus findings were not present on the recent exam of 10/29/2017 and there is no proximal dilatation of b owel. Contrast has not yet reached the colon, limiting evaluation. Additionally moderate amount retai syl colonic stool also limits evaluation. There is no gross evidence of focal bowel wall thickening. Hepatic flexure is redundant. The terminal ileum is unremarkable without focal thickening or surround ing inflammatory fat stranding. Small bowel is nondilated and grossly unremarkable. Postsurgical changes seen of the gastroesophageal junction with surgical clips also noted along the h epatic margin and splenic periphery. UTERUS/ADNEXA: No gross abnormality seen. LYMPH NODES: No greater than 1cm abdominal or pelvic lymph nodes are appreciated. OSSEOUS STRUCTURES: There is only minimal sacroiliac joint sclerosis and mild degenerative changes of the spine. IMPRESSION: 1. Minimal vasa recta engorgement around the sigmoid colon possibly relating to very mild long segmen t colitis however there is decompression of the distal colon and evaluation for complicating process such as stricture are therefore limited. No fistula identified in this patient with ulcerative coliti s. Additionally there is only minimal sacroiliac joint sclerosis and no evidence of intrahepatic bili carmina ductal dilatation, findings that can be associated with Crohn's disease. 2. Findings that can be seen in autoimmune pancreatitis although these findings also can be normal va riation therefore correlation with serum laboratory values is recommended. 3. Stable postsurgical changes at the gastroesophageal junction.
== END ==
LOC: RADCTMAIN 05:52
PROVIDERS: ATTEND Surgery
DX: K58.9 Irritable bowel syndrome, unspecified (principal); R93.3 Abnormal findings on diagnostic imaging of other parts of digestive tract; M53.3 Sacrococcygeal disorders, not elsewhere classified
CPT/HCPCS: 82565; 84520; 74177; 36415; Q9967

== ENCOUNTER → 2018-04-01 | Outpatient (CLI) | payer OTHER ==
--- NOTE | 2018-04-01 22:59 | MR ---
EXAMINATION TYPE: MR shoulder RT wo con DATE OF EXAM: 04/01/2018 COMPARISON: None HISTORY: 57-year-old female with bilateral shoulder pain, RTC Tear TECHNIQUE: Multiplanar, multisequence imaging of the right shoulder is performed without contrast. FINDINGS: There is an interstitial tear of the intracapsular portion of the long head biceps tendon. At the tegan ction with the extracapsular portion, the tendon enlarges and shows heterogeneous signal. The extraca psular portion remains appropriately situated along the bicipital groove. There is edematous soft tissue replacement in the region of the rotator cuff interval. Thickening and heterogeneous signal of the subscapularis tendon. The tendon remains intact. Mild degenerative joint space narrowing with marginal spurring at the acromioclavicular joint. There is no significant effacement of the underlying myotendinous junction of the supraspinatus. Trace subacromial/subdeltoid bursal thickening without any significant effusion. Severe thickening and heterogeneity of both supraspinatus and infraspinatus tendons. There is a tear located in the mid to posterior supraspinatus tendon fibers. The majority of the tear is intrasubstan ce measuring 9 mm long and 1.5 cm AP. Articular sided communication is suspected in a few intact burs al sided fibers remain. Intrasubstance change within the infraspinatus tendon. There is subtle edematous change within the posterior deltoid and supraspinatus muscle belly. No sign ificant fatty replacement. Degenerative signal is present in the posterior superior labrum suspected small tear just behind the biceps anchor, coronal T2 FS image 15. There is either a sublabral foramen or anterior superior lindsey l tear, the with the former being favored. No paralabral cysts. Mild thinning of superior humeral head articular cartilage. Minimal inferior humeral head spurring. N o joint effusion. No Hill-Sachs deformity or os acromiale. No suspicious bone marrow replacement. IMPRESSION: 1. Marked diffuse rotator cuff tendinosis. Suspect a prominent rim rent tear of the mid to posterior supraspinatus tendon measuring 9 x 15 mm with a small articular sided communication. No full-thicknes s tear or muscle atrophy. 2. Mild edema of the supraspinatus and posterior deltoid muscles could represent strain or edema reac tive to altered biomechanics. 3. Interstitial tear of the intracapsular portion of the long head biceps tendon with prominent tendi nosis at the junction with the extracapsular portion. 4. Mild AC and glenohumeral joint osteoarthrosis. Small superior labral tear. 5. Edematous soft tissue thickening in the rotator cuff interval could represent synovitis or sprain of the biceps lucy.
--- NOTE | 2018-04-01 22:59 | MR ---
EXAMINATION TYPE: MR shoulder LT wo con DATE OF EXAM: 04/01/2018 COMPARISON: None HISTORY: 57 year-old female bilateral shoulder pain, RTC Tear TECHNIQUE: Multiplanar, multisequence imaging of the left shoulder is performed without contrast. FINDINGS: The long head biceps tendon appears intact and appropriately situated along the bicipital groove. Diffuse heterogeneous signal of the subscapularis tendon which remains intact. Mild degenerative joint space narrowing with marginal spurring at the acromioclavicular joint. Slight abutment of the underlying myotendinous junction of the supraspinatus but with preserved intervening fat plane. Trace fluid within the subacromial/subdeltoid bursa. There is a bursal sided tear of the mid supraspi natus tendon proximal to the footprint measuring 9 mm long and 7 mm wide. There is some intrasubstanc e extension of tearing both anteriorly and posteriorly within the supraspinatus tendon but no full-th ickness communication identified. There is a small 5 mm long by 8 mm AP bursal sided tear at the footprint of the anterior supraspinatu s tendon and a small 7 x 4 mm intrasubstance tear of the infraspinatus tendon at its footprint. No te ndons are thickened and heterogeneous. Minimal inferior spurring at the inferior humeral head and tear of the superior labrum extending from the biceps anchor back to the superior aspect of the posterior labrum. No paralabral cyst. No signif icant glenohumeral joint effusion. Edematous soft tissue replacement within the rotator cuff interval as seen on the contralateral side. No Hill-Sachs deformity or os acromiale. No suspicious bone marrow replacement. IMPRESSION: 1. Marked diffuse rotator cuff tendinosis with a bursal sided tear of the mid supraspinatus tendon me asuring 9 x 7 mm (involving just over 50% of the tendon thickness) located proximal to the footprint. 2. Additional small bursal sided tear at the anterior supraspinatus footprint (5 x 8 mm) and intrasub stance change of the infraspinatus tendon. No full-thickness tear is seen. 3. Small SLAP tear and mild degenerative spurring at the glenohumeral joint. Mild AC joint OA. 4. Similar edematous soft tissue replacement in the rotator cuff interval which could represent synov itis or sprain of the biceps lucy.
== END | disposition home or self-care (01) ==
LOC: RADMRIMAIN 06:02
PROVIDERS: ATTEND Orthopaedic Surgery
DX: M75.82 Other shoulder lesions, left shoulder (principal); M75.81 Other shoulder lesions, right shoulder; S46.111A Strain of muscle, fascia and tendon of long head of biceps, right arm, initial encounter; M19.011 Primary osteoarthritis, right shoulder; S43.491A Other sprain of right shoulder joint, initial encounter; M75.102 Unspecified rotator cuff tear or rupture of left shoulder, not specified as traumatic; S43.432A Superior glenoid labrum lesion of left shoulder, initial encounter; M19.012 Primary osteoarthritis, left shoulder

== ENCOUNTER 2018-05-05 14:05 | Emergency (ER) | payer OTHER ==
[2018-05-05 14:12] VITALS: RESP 18
[2018-05-05] MEDS ORDERED: SODIUM CHLORIDE 0.9% 500 ML IV STA (15:07)
[2018-05-05 15:27] LABS: Basophils % (A) 1 %; Eosinophils # (A) 0.1 k/uL (0-0.7); Eosinophils % (A) 3 %; HGB 13.6 gm/dL (11.4-16.0); Lymphocytes # (A) 1.3 k/uL (1.0-4.8); Lymphocytes % (A) 25 %; MCH 30.1 pg (25.0-35.0); MCHC 32.3 g/dL (31.0-37.0); MCV 93.3 fL (80.0-100.0); Mean Platelet Volume 6.7; Monocytes # (A) 0.4 k/uL (0-1.0); Monocytes % (A) 7 %; Neutrophils # (A) 3.2 k/uL (1.3-7.7); Neutrophils % (A) 63 %; Platelet Count 242 k/uL (150-450); RDW 13.5 % (11.5-15.5); WBC 5.1 k/uL (3.8-10.6)
[2018-05-05 15:33] LABS: ALT 24 U/L (9-52); AST 18 U/L (14-36); Albumin 3.8 g/dL (3.5-5.0); Alkaline Phosphatase 53 U/L (38-126); Anion Gap 7 mmol/L; Blood Urea Nitrogen 14 mg/dL (7-17); Carbon Dioxide 28 mmol/L (22-30); Chloride 106 mmol/L (98-107); Glucose 80 mg/dL (74-99); INR 1.2 (<1.2); Magnesium 1.9 mg/dL (1.6-2.3); Partial Thromboplastin Time 23.1 sec (22.0-30.0); Potassium 4.2 mmol/L (3.5-5.1); Prothrombin Time 11.2 sec (9.0-12.0); Sodium 141 mmol/L (137-145); Total Bilirubin 0.3 mg/dL (0.2-1.3); Total Protein 6.4 g/dL (6.3-8.2)
[2018-05-05 15:51] LABS: Creatine Kinase 50 U/L (30-135)
[2018-05-05 16:03] LABS: Creatine Kinase MB 0.3 ng/mL (0.0-2.4); Troponin I <0.012 ng/mL (0.000-0.034)
--- NOTE | 2018-05-05 16:54 | ED ---
General Adult HPI - General Chief complaint: Arrhythmia/Palpitations Stated complaint: Palpitations Source: patient Mode of arrival: wheelchair Limitations: no limitations - History of Present Illness Initial comments: Dictation was produced using Lapio dictation software. please excuse any grammatical, word or spelling errors. Chief Complaint: 57-year-old female with past medical history of chronic back pain, dyslipidemia, chronic pain presents with instructions from patient doctor to come to the emergency department for tachycardia. History of Present Illness: At the pain clinic for the prescription refilled today. Patient had her vital signs performed and she had a heart rate of approximately 130. Patient had no symptoms. She was transported down here by the pain clinic staff. Patient states she's been having recent onset chest pain and shortness of breath. States that she has chest pain to her anterior right and left chest. She is at the pain is constant. An mild. no exacerbation with movement. Signs of shortness of breath. The ROS documented in this emergency department record has been reviewed and confirmed by me. Those systems with pertinent positive or negative responses have been documented in the HPI. All other systems are other negative and/or noncontributory. - Related Data Home Medications Medication Instructions Recorded Confirmed Albuterol Inhaler [Ventolin 2 puff INHALATION RT-BID 02/15/14 05/05/18 Inhaler] Sucralfate [Carafate] 1 gm PO BID PRN 02/15/14 05/05/18 hydrALAZINE HCL 10 mg PO TID 02/15/14 05/05/18 oxyCODONE HCL [OxyIR] 5 mg PO Q6H PRN 02/15/14 05/05/18 traMADol HCl [Ultram] 50 mg PO QID PRN 02/15/14 05/05/18 traZODone HCL [Desyrel] 100 mg PO HS 02/15/14 05/05/18 Montelukast Sodium [Singulair] 10 mg PO HS 04/14/14 05/05/18 Cyclobenzaprine [Flexeril] 10 mg PO HS 08/28/14 05/05/18 Pilocarpine [Salagen] 5 mg PO QID 10/20/14 05/05/18 Alendronate Sodium 70 mg PO Q14D 03/15/15 05/05/18 Garlic 1 tab PO BID 10/17/16 05/05/18 Ipratropium Nebulized [Atrovent 0.5 mg INHALATION RT-QID PRN 04/08/17 05/05/18 Nebulized] Triamcinolone Acetonide 1 spray EA NOSTRIL BID PRN 04/08/17 05/05/18 [Triamcinolone Acetonide 0.055MG Nasal] Albuterol Nebulized [Ventolin 2.5 mg INHALATION RT-QID 10/23/17 05/05/18 Nebulized] Methylphenidate HCl [Ritalin] 20 mg PO DAILY 12/07/17 05/05/18 Pnv No.95/Ferrous Fum/Folic AC 1 tab PO DAILY 04/22/18 05/05/18 [ Multivitamin Tablet] rOPINIRole HCL [Requip] 1 mg PO HS 04/22/18 05/05/18 Acyclovir [Zovirax] 800 mg PO TID 05/05/18 05/05/18 Biotin 5 mg PO BID 05/05/18 05/05/18 Budesonide [Pulmicort] 0.5 mg INHALATION RT-BID 05/05/18 05/05/18 EPINEPHrine [Epipen 2-Pipo] 0.3 mg IM ONCE PRN 05/05/18 05/05/18 Fluticasone/Salmeterol [Advair 1 puff INHALATION RT-HS 05/05/18 05/05/18 250-50 Diskus] Furosemide [Lasix] 20 mg PO DAILY 05/05/18 05/05/18 Gabapentin [Neurontin] 100 mg PO TID 05/05/18 05/05/18 Lansoprazole 30 mg PO DAILY 05/05/18 05/05/18 Pravastatin Sodium [Pravachol] 10 mg PO DAILY 05/05/18 05/05/18 Previous Rx's Medication Instructions Recorded Magnesium Oxide [Mag-Ox] 400 mg PO DAILY #30 tablet 12/07/17 Allergies Allergy/AdvReac Type Severity Reaction Status Date / Time JOSE Inhibitors Allergy Severe kidney and Verified 05/05/18 16:06 liver failure, dehydration morphine Allergy Severe SWELLING,RASH,SWELLING Verified 05/05/18 16:06 OF TONGUE,ABDOMINAL PAIN venom-honey bee Allergy Severe SHORTNESS Verified 05/05/18 16:06 OF BREATH,VOMITING, rash, swelling acetaminophen Allergy Anaphylaxis, Verified 05/05/18 16:06 vomiting, rash, tongue swelling adhesive Allergy skin peels Verified 05/05/18 16:06 off(plastic & bandaids), paper/cloth tape ok amitriptyline Allergy tongue Verified 05/05/18 16:06 swelling/rash aspirin Allergy Anaphylaxis,vomting, Verified 05/05/18 16:06 tongue swelling, SOB, rash atorvastatin calcium Allergy Anaphylaxis, Verified 05/05/18 16:06 [From Lipitor] vomting, rash bupropion HCl Allergy TONGUE Verified 05/05/18 16:06 [From Wellbutrin] SWELLING/vomiting calcium Allergy Diarrhea Verified 05/05/18 16:06 ciprofloxacin [From Cipro] Allergy Vomiting,RA Verified 05/05/18 16:06 SH citalopram hydrobromide Allergy TONGUE Verified 05/05/18 16:06 [From Celexa] SWELLING clarithromycin [From Biaxin] Allergy Vomiting, Verified 05/05/18 16:06 SOB, tongue swelling duloxetine HCl Allergy SWELLING Verified 05/05/18 16:06 [From Cymbalta] OF TONGUE Fish Containing Products Allergy Vomiting,SW Verified 05/05/18 16:06 DAVID BRYANT lisinopril Allergy kidney and Verified 05/05/18 16:06 liver failure,dehydration naproxen Allergy Vomiting,TONGUE Verified 05/05/18 16:06 SWELLING,SHORTNESS OF BREATH paroxetine HCl [From Paxil] Allergy Vomiting,TONGUE Verified 05/05/18 16:06 SWELLING, nausea Penicillins Allergy Anaphylaxis Verified 05/05/18 16:06 pregabalin [From Lyrica] Allergy TONGUE Verified 05/05/18 16:06 SWELLING ,RASH, vomiting Salicylates Allergy Anaphylaxis, Verified 05/05/18 16:06 vomting, tongue swelling, rash sertraline HCl [From Zoloft] Allergy SWELLING Verified 05/05/18 16:06 OF TONGUE shellfish derived [Shellfish] Allergy SWELLING Verified 05/05/18 16:06 OF TONGUE,,HIVES,vomiting insect stings Allergy Swelling,RASH,SHORTNESS Uncoded 05/05/18 14:12 OF BREATH, vomiting SEAFOOD Allergy SWELLING Uncoded 05/05/18 14:12 OF TONGUE,HIVES, vomiting Review of Systems ROS Statement: Those systems with pertinent positive or pertinent negative responses have been documented in the HPI. ROS Other: All systems not noted in ROS Statement are negative. Past Medical History Past Medical History: Asthma, Chest Pain / Angina, COPD, Diabetes Mellitus, Fibromyalgia, GERD/Reflux, Hearing Disorder / Deafness, Hyperlipidemia, Hypertension, Liver Disease, Osteoarthritis (OA), Renal Disease, Rheumatoid Arthritis (RA), Skin Disorder Additional Past Medical History / Comment(s): HX of Hep. C, hx liver failure from lisinopril, DDD , Sjogren's syndrome. states diet controlled diabetes, restless leg syndrome. headaches, irregular heartbeat, diverticulitis, "touch of crohns", psoriasis, thyroid nodules, hx anemia, bleeds easily, planter faciitis, partially deaf rt ear History of Any Multi-Drug Resistant Organisms: None Reported Past Surgical History: Cholecystectomy, Hernia Repair, Orthopedic Surgery, Tubal Ligation Additional Past Surgical History / Comment(s): BILAT CARPAL TUNNEL; EYE SURGERY A CHILD, RT little toe fracture . HIATAL HERNIA Umbilical HERNIA X2; [facility] INJECTIONS, bilat toenails removed, lipoma removed rt shoulder, hemorrhoidectomy x 2 Past Anesthesia/Blood Transfusion Reactions: Motion Sickness Past Psychological History: Anxiety, Depression Smoking Status: Former smoker Past Alcohol Use History: None Reported Past Drug Use History: None Reported - Past Family History Father Family Medical History: Cancer Additional Family Medical History / Comment(s): Colon Mother Family Medical History: Cancer Additional Family Medical History / Comment(s): Uterine, skin General Exam - General Exam Comments Initial Comments: PHYSICAL EXAM: General Impression: Alert and oriented x3, not in acute distress HEENT: Normocephalic atraumatic, extra-ocular movements intact, pupils equal and reactive to light bilaterally, mucous membranes moist. Cardiovascular: Heart regular rate and rhythm, S1&S2 audible, no murmurs, rubs or gallops Chest: Lungs clear to auscultation bilaterally, no rhonchi, no wheeze, no rales Abdomen: Bowel sounds present, abdomen soft, non-tender, non-distended, no organomegaly Musculoskeletal: Pulses present and equal in all extremities, no peripheral edema Motor: Power 5/5 bilaterally, no focal deficits noted Neurological: CN II-XII grossly intact, no focal motor or sensory deficits noted Skin: Intact with no visualized rashes Psych: Normal affect and mood Limitations: no limitations Course Vital Signs 05/05/18 05/05/18 14:09 14:54 Temperature 98.3 F Pulse Rate 106 H Pulse Rate [ 106 H Left Pulse Oximetery] Respiratory 18 Rate Blood Pressure 132/81 O2 Sat by Pulse 100 Oximetry Medical Decision Making - Medical Decision Making ED course: 67-year-old female presents with chief complaint of chest pain, shortness of breath and tachycardia. Vital signs upon arrival shows heart rate of 106, worse vital signs within normal limits. Laboratory evaluation obtained. CBC is unremarkable. Coag panel is unremarkable. No Bolick panel shows no acute processes. Cardiac enzymes are negative. Abdominal labs are negative. CT angios the chest does not demonstrate any pulmonary emboli or dissection. There are however no minimal infiltrates and atelectasis at the lung bases compared to old exam. He symptoms of pneumonia. She denies any cough, fever. Furthermore, patient denies any feelings of malaise. Repeat vital signs were obtained showing improvement in heart rate to the 90s. At this point no clear etiology of what constipation sinus tachycardia. Given that she responded to intravenous fluids could possibly be that patient was dehydrated. Patient not having any nausea or vomiting. She is told to hydrate herself at home. EKG Interpretation: A 12 lead EKG was obtained. It was interpreted by myself and attending physician. There is a P wave before every QRS complex. Rate is 103. Rhythm is sinus tachycardia, WI interval 136, Q nondenominational 104, QTc 453. QT is not prolonged. No ST segment depression or elevation. Overall, this EKG is unremarkable - Lab Data Result diagrams: 05/05/18 14:50 05/05/18 14:50 Lab Results 05/05/18 05/05/18 05/05/18 Range/Units 14:50 14:50 14:50 WBC 5.1 (3.8-10.6) k/uL RBC 4.50 (3.80-5.40) m/uL Hgb 13.6 (11.4-16.0) gm/dL Hct 42.0 (34.0-46.0) % MCV 93.3 (80.0-100.0) fL MCH 30.1 (25.0-35.0) pg MCHC 32.3 (31.0-37.0) g/dL RDW 13.5 (11.5-15.5) % Plt Count 242 (150-450) k/uL Neutrophils % 63 % Lymphocytes % 25 % Monocytes % 7 % Eosinophils % 3 % Basophils % 1 % Neutrophils # 3.2 (1.3-7.7) k/uL Lymphocytes # 1.3 (1.0-4.8) k/uL Monocytes # 0.4 (0-1.0) k/uL Eosinophils # 0.1 (0-0.7) k/uL Basophils # 0.0 (0-0.2) k/uL PT (9.0-12.0) sec INR (<1.2) APTT (22.0-30.0) sec Sodium 141 (137-145) mmol/L Potassium 4.2 (3.5-5.1) mmol/L Chloride 106 (98-107) mmol/L Carbon Dioxide 28 (22-30) mmol/L Anion Gap 7 mmol/L BUN 14 (7-17) mg/dL Creatinine 0.81 (0.52-1.04) mg/dL Est GFR (CKD-EPI)AfAm >90 (>60 ml/min/1.73 sqM) Est GFR (CKD-EPI)NonAf 82 (>60 ml/min/1.73 sqM) Glucose 80 (74-99) mg/dL Calcium 9.0 (8.4-10.2) mg/dL Magnesium 1.9 (1.6-2.3) mg/dL Total Bilirubin 0.3 (0.2-1.3) mg/dL AST 18 (14-36) U/L ALT 24 (9-52) U/L Alkaline Phosphatase 53 (38-126) U/L Total Creatine Kinase 50 (30-135) U/L CK-MB (CK-2) 0.3 (0.0-2.4) ng/mL CK-MB (CK-2) Rel Index 0.6 Troponin I <0.012 (0.000-0.034) ng/mL NT-Pro-B Natriuret Pep pg/mL Total Protein 6.4 (6.3-8.2) g/dL Albumin 3.8 (3.5-5.0) g/dL 05/05/18 05/05/18 Range/Units 14:50 14:50 WBC (3.8-10.6) k/uL RBC (3.80-5.40) m/uL Hgb (11.4-16.0) gm/dL Hct (34.0-46.0) % MCV (80.0-100.0) fL MCH (25.0-35.0) pg MCHC (31.0-37.0) g/dL RDW (11.5-15.5) % Plt Count (150-450) k/uL Neutrophils % % Lymphocytes % % Monocytes % % Eosinophils % % Basophils % % Neutrophils # (1.3-7.7) k/uL Lymphocytes # (1.0-4.8) k/uL Monocytes # (0-1.0) k/uL Eosinophils # (0-0.7) k/uL Basophils # (0-0.2) k/uL PT 11.2 (9.0-12.0) sec INR 1.2 H (<1.2) APTT 23.1 (22.0-30.0) sec Sodium (137-145) mmol/L Potassium (3.5-5.1) mmol/L Chloride (98-107) mmol/L Carbon Dioxide (22-30) mmol/L Anion Gap mmol/L BUN (7-17) mg/dL Creatinine (0.52-1.04) mg/dL Est GFR (CKD-EPI)AfAm (>60 ml/min/1.73 sqM) Est GFR (CKD-EPI)NonAf (>60 ml/min/1.73 sqM) Glucose (74-99) mg/dL Calcium (8.4-10.2) mg/dL Magnesium (1.6-2.3) mg/dL Total Bilirubin (0.2-1.3) mg/dL AST (14-36) U/L ALT (9-52) U/L Alkaline Phosphatase (38-126) U/L Total Creatine Kinase (30-135) U/L CK-MB (CK-2) (0.0-2.4) ng/mL CK-MB (CK-2) Rel Index Troponin I (0.000-0.034) ng/mL NT-Pro-B Natriuret Pep 38 pg/mL Total Protein (6.3-8.2) g/dL Albumin (3.5-5.0) g/dL Disposition Clinical Impression: Dehydration Disposition: HOME SELF-CARE Condition: Good Instructions: Tachycardia (ED) Is patient prescribed a controlled substance at d/c from ED?: No Referrals: Pari Leonard MD [Primary Care Provider] - 1-2 days Time of Disposition: 17:05
--- NOTE | 2018-05-05 16:54 | CT ---
EXAMINATION TYPE: CT angio chest DATE OF EXAM: 05/05/2018 4:43 PM COMPARISON: 09/16/2012 HISTORY: palpitations CT DLP: 363 mGycm Automated exposure control for dose reduction was used. CONTRAST: CTA scan of the thorax is performed with IV Contrast, patient injected with 70mL mL of Isovue 370, pu lmonary embolism protocol. There are 3-D post processed images.. FINDINGS: There is mild pulmonary emphysema. There is mild subpleural reticular density at the lung bases. Ther e is no pleural effusion. There is no evidence of a pulmonary mass. Thoracic aorta shows no aneurysm or dissection. Mediastinum is normal. There is normal contrast opacification of the pulmonary arteries. I see no filling defects. There are no hilar masses. There is old 20% wedging of T9 vertebra. IMPRESSION: NO EVIDENCE OF PULMONARY EMBOLISM. OLD T9 MINIMAL COMPRESSION FRACTURE. THERE ARE NEW INTERSTITIAL NE NIMAL INFILTRATES AND ATELECTASIS AT THE LUNG BASES COMPARED TO OLD EXAM.
[2018-05-05 17:26] VITALS: BP 146/96; PULSE 91; TEMP 98.9
== END 2018-05-05 17:40 | disposition home or self-care (01) ==
LOC: EC 14:05
DX: E86.0 Dehydration (principal); J98.11 Atelectasis; R00.0 Tachycardia, unspecified; R07.89 Other chest pain; R06.02 Shortness of breath; J44.9 Chronic obstructive pulmonary disease, unspecified; E78.5 Hyperlipidemia, unspecified; I10 Essential (primary) hypertension; K21.9 Gastro-esophageal reflux disease without esophagitis; M79.7 Fibromyalgia; E11.9 Type 2 diabetes mellitus without complications; G25.81 Restless legs syndrome; M35.00 Sjogren syndrome, unspecified; F32.9 Major depressive disorder, single episode, unspecified; F41.9 Anxiety disorder, unspecified; H91.91 Unspecified hearing loss, right ear; Z87.891 Personal history of nicotine dependence; Z88.0 Allergy status to penicillin; Z88.1 Allergy status to other antibiotic agents; Z88.5 Allergy status to narcotic agent; Z88.6 Allergy status to analgesic agent; Z88.8 Allergy status to other drugs, medicaments and biological substances; Z91.013 Allergy to seafood; Z91.038 Other insect allergy status; Z91.048 Other nonmedicinal substance allergy status; Z91.030 Bee allergy status; Z79.51 Long term (current) use of inhaled steroids; Z79.899 Other long term (current) drug therapy; Z87.01 Personal history of pneumonia (recurrent)
CPT/HCPCS: 99285 ×2; 36415; 93005; 83880; 80053; 82550; 82553; 83735; 84484; 85025; 85610; 85730; 71275; G0463; 99211

== ENCOUNTER → 2018-05-05 | Outpatient (CLI) | payer OTHER ==
[2018-05-05 13:51] VITALS: BP 130/76; PULSE 138; RESP 16
--- NOTE | 2018-05-05 13:54 | P.PAINPG ---
Subjective Progress Note Date: 05/05/18 Principal diagnosis: Low back pain This a 57 shoulder with a long-standing history of low back pain who presents a very medication management. She reports that her magnesium oxide has been helping her. She presents today for a refill of this medicine. Objective - Vital Signs Vital signs: Vital Signs Temp Pulse 138 H 05/05/18 13:17 Resp 16 05/05/18 13:17 BP 130/76 05/05/18 13:17 Pulse Ox 97 05/05/18 13:17 Intake & Output 05/04/18 05/05/18 05/05/18 18:59 06:59 18:59 Weight 72.575 kg - Exam General: The patient is alert and oriented. Patient is not sedated Patient answers all question appropriately. Cardiac: Heart is regular in rate and rhythm Respiratory: Clear to auscultation. No audible wheezes. Abdomen: Soft nontender nondistended. Lower extremities: Strength is normal bilaterally. Sensation is normal bilaterally. Reflexes are preserved and symmetric bilaterally. Straight leg raise is negative bilaterally. Assessment and Plan (1) Spondylosis of lumbar region without myelopathy or radiculopathy Narrative/Plan: Plan of Care 1. Medications: I will refill the patient's magnesium oxide today. I have reviewed the patient's MAPS report and it reveals expected results. Patient has signed an opiate agreement as well as opiate consent for treatment in our clinic. They understand the risks and benefits of opiate medications. They are aware of the potential for addiction. 2. Interventions: No interventions are indicated this time. 3. Referrals: Patient was found to have a heart rate of 130-140 upon evaluation today. I discussed with her her cardiac history. I will have transporters take her to the emergency center now for evaluation. She is adjacent to [facility] this time. 4. Testing: None 5. Follow-up: 2 months for medication management Current Visit: Yes Status: Acute Code(s): M47.816 - SPONDYLOSIS W/O MYELOPATHY OR RADICULOPATHY, LUMBAR REGION SNOMED Code(s): 95279704 (2) Degenerative lumbar spinal stenosis Current Visit: Yes Status: Acute Code(s): M48.061 - SPINAL STENOSIS, LUMBAR REGION WITHOUT NEUROGENIC CHAVO SNOMED Code(s): 765838736 PQRS Measure Charge Sheet Measure #130: Documentation of Current Meds in Medical Chart: Patient's medications documented in chart Measure #226: Tobacco Use: Screen & Cessation Intervention: Pt not a tobacco user Measure #111: Pneumonia Vaccination: Pneumococcal vaccine administered or previously received Measure #47: Advance Care Plan: Advance care planning discussed & documented, pt chose/unable to give Measure #412: Opioid Treatment Agreement: No documentation of signed opioid treatment agreement Measure #408: Opioid Therapy Follow-up Evaluation: Patient had NO f/u eval minimum every 3 months during opioid therapy Measure #317: Preventitive Care & Scrn High Bld Press & F/U: Normal blood pressure, f/u not required Measure #128: Body Mass Index (BMI) Screening & Follow-up: BMI documented within normal parameters Measure #131: Pain Assessment & Follow-up: Pain positive & plan documented Measure #431: Unhealthy Alcohol Use Preventative Care & Scrn: Patient not identified as an unhealthy alcohol user PQRS Narrative: Smoking Status Former smoker Do You Want the Pneumonia No Vaccine AT THIS TIME? Narcotic Agreement Date Signed 12/14/13 Blood Pressure 130/76 Pain Intensity [Neck] 7 Scale Used Numeric (1 - 10) Hx Alcohol Use (MH) No Home Medications: Ambulatory Orders Albuterol Inhaler [Ventolin Inhaler] 2 puff INHALATION DIRECTED PRN 02/15/14 Sucralfate [Carafate] 1 gm PO BID PRN 02/15/14 hydrALAZINE HCL 10 mg PO TID 02/15/14 oxyCODONE HCL [OxyIR] 5 mg PO QID 02/15/14 traMADol HCl [Ultram] 50 tab PO TID 02/15/14 traZODone HCL [Desyrel] 100 mg PO HS 02/15/14 Montelukast Sodium [Singulair] 10 mg PO HS 04/14/14 Cyclobenzaprine [Flexeril] 10 mg PO HS 08/28/14 Pilocarpine [Salagen] 5 mg PO QID 10/20/14 Alendronate Sodium 70 mg PO PEACE 03/15/15 Gabapentin [Neurontin] 300 mg PO TID 07/08/16 Biotin 5,000 mcg PO BID 10/17/16 Garlic 1 each PO BID 10/17/16 Budesonide [Pulmicort Flexhaler] 2 puff INHALATION BID 04/08/17 Ipratropium Nebulized [Atrovent Nebulized] 0.5 mg INHALATION QID 04/08/17 Triamcinolone Acetonide [Triamcinolone Acetonide 0.055MG Nasal] 1 spray EA NOSTRIL BID PRN 04/08/17 Terbinafine [LamISIL] 250 mg PO DAILY 09/23/17 Albuterol Nebulized [Ventolin Nebulized] 2.5 mg INHALATION Q6H 10/23/17 Magnesium Oxide [Mag-Ox] 400 mg PO DAILY #30 tablet 12/07/17 Methylphenidate HCl [Ritalin] 20 mg PO DAILY 12/07/17 Pnv No.95/Ferrous Fum/Folic AC [ Multivitamin Tablet] 1 each PO DAILY rOPINIRole HCL [Requip] 1 mg PO HS 04/22/18 Controlled Substance Measures - Controlled Substance Measures Is patient prescribed a controlled substance at discharge?: No
== END | disposition home or self-care (01) ==
LOC: PNWHC3 12:51
PROVIDERS: ATTEND Pain Medicine Pain Medicine
DX: M48.061 Spinal stenosis, lumbar region without neurogenic claudication (principal); M47.816 Spondylosis without myelopathy or radiculopathy, lumbar region; Z87.891 Personal history of nicotine dependence; Z79.891 Long term (current) use of opiate analgesic
CPT/HCPCS: 99211

== ENCOUNTER → 2018-09-01 | Outpatient (CLI) | payer OTHER ==
[2018-09-01 14:32] LABS: Blood Urea Nitrogen 17 mg/dL (7-17)
--- NOTE | 2018-09-02 07:52 | CT ---
EXAMINATION TYPE: CT abdomen pelvis w con DATE OF EXAM: 09/01/2018 HISTORY: abdominal pain and bloating, history of ulcerative colitis on prior reports. CT DLP: 532mGycm Automated Exposure Control for Dose Reduction was Utilized. CONTRAST: CT scan of the abdomen and pelvis is performed with oral and with IV Contrast, patient injected with 100 mL of Isovue 300. COMPARISON: CT abdomen pelvis March 29, 2018 and older CTs. FINDINGS: LUNG BASES: Suspect some nondependent air within the right ventricle likely from pressure IV injectio n on current study. LIVER/GB: Cholecystectomy clips are redemonstrated. PANCREAS: Pancreas felt within normal limits on current study. SPLEEN: Surgical clips along medial margin of spleen axial image 17 is redemonstrated. ADRENALS: No significant abnormality is seen. KIDNEYS: No significant abnormality is seen. BOWEL: The oral contrast does not reach level of terminal ileum on current study making evaluation of the colon Suboptimal. There is small bowel feces sign in the terminal ileum. There is no suspicious dilatation of small bowel loops to suggest obstruction. A nasogastric consistent with delayed passage of ingested material 2 colonic level. There is mild wall thickening from the splenic flexure through the mid to distal left colon. Cannot exclude a mild colitis at this level. Some scattered colonic di verticula are present. No convincing evidence for acute diverticulitis. Surgical changes just below d iaphragm epigastric region from the sent fundoplication surgery are redemonstrated. UTERUS/ADNEXA: Anteverted uterus is seen. LYMPH NODES: No greater than 1cm abdominal or pelvic lymph nodes are appreciated. OSSEOUS STRUCTURES: Suspect limbus vertebra anterior superior L4 endplate. Redemonstration of disc ca lcification at T10-T11 level. Redemonstration of spurring and sclerosis anterior T11-T12 level. Sacro iliac joints felt maintained. OTHER: Mild calcified plaque abdominal aorta extends into branch vessels. IMPRESSION: Perhaps new mild colitis involving the left colon most prominent near splenic flexure. Co rrelate clinically.
== END ==
LOC: RADCTMAIN 13:43
PROVIDERS: ATTEND Surgery
DX: K43.2 Incisional hernia without obstruction or gangrene (principal)
CPT/HCPCS: 82565; 84520; 74177; 36415; Q9967

== ENCOUNTER → 2018-09-28 | Outpatient (CLI) | payer OTHER ==
[2018-09-28 12:45] VITALS: BP 125/82; PULSE 86; RESP 18
--- NOTE | 2018-09-29 06:05 | P.PAINPG ---
Subjective Progress Note Date: 09/28/18 This is follow-up visit for this 57 years old female, with a history of severe and chronic neck pain and low back pain secondary to lumbar degenerative disc disease, lumbar spondylosis with facet arthropathy, and cervical spondylosis with facet arthropathy without myelopathy We have done an interventional pain procedure radiofrequency ablation of the medial branch cervical area at C3 4, C4 5, C5 6, done September 2017 and patient reported that her neck pain improved significantly after the radiofrequency ablation, also we have done radiofrequency ablation of the medial branch lumbar area at L3 to S1, done in April 2017 And she reported that after the radiofrequency in the lumbar area and her pain improved significantly, and currently she is complaining of severe neck pain, is not radiated to the upper extremity, the pain in the cervical area aggravated with any neck movement The patient currently on Ultram 100 mg daily at bedtime, oxycodone 5 mg every 6 hours, Neurontin 300 3 times a day, Flexeril 10 mg daily at bedtime( prescriptions from PCP) Patient denies any side effect of the medication , patient denies any excessive drowsiness or sleepiness, patient denies any suicidal ideation, Patient reported that the current medication is helping to control the pain and improve the activity of daily livings, Patient denies any motor or sensory deficit, denies any change in the bowel movement or urination, patient denies any fever or night sweats. Objective - Vital Signs Vital signs: Vital Signs Temp Pulse 86 09/28/18 12:38 Resp 18 09/28/18 12:38 BP 125/82 09/28/18 12:38 Pulse Ox 99 09/28/18 12:38 Intake & Output 09/28/18 09/28/18 09/29/18 06:59 18:59 06:59 Weight 95 kg - Exam Physical Examinations : 1-Constitutiona : Cooperative , not in acute distress . 2-HEENT : nech ; supple , no Lymphadenopathy , normal thyroid size . eyes : no ptosis , no icterus, no photophobia . 3- neurologic : Cranial nerve II to XII intact , no focal neurological deffecit . 4-psychatric : alert , oriented X 3 , appropriate affect , intact judgment and insight . 5-Lymphatic : no Lymphadenopathy . 6- musculoskeltal : Cervical Spine motor stregnth in the deltoid and biceps, normal right side , normal Left side motor stregnth biceps and the wrist extensors normal right side ,normal left side . motor stregnth in the triceps muscle . normal Right side , normal Left side deep tendon reflexes normal at the biceps , normal at Brachioradialis , normal at triceps. positive cervical facet loading test . Spurling test positive bilaterally. Neck distraction test positive bilaterally. Maxwell sign positive bilaterally. Multiple trigger points identified in the right side suprascapular muscle and trapezius muscle Lumber spine moter stegnth lower extremities , thigh and legs 5/5 Right side , 5/5 Left side Assessment and Plan Plan: Assessment and plan= Chronic severe neck pain secondary to cervical spondylosis, myofascial pain syndrome cervical area Patient had a good result after the radiofrequency ablation of the medial branch cervical area , done in September 2017, patient would be good candidate to have, repeats radiofrequency Medial branch, right side C3 4 C4 5, C5 6, and also patient could benefit from trigger point injections cervical area and suprascapular. chronic low back pain secondary to lumbar degenerative disc disease , lumbar spondylosis with lumbar facet arthropathy . Patient will continue to get prescription referral for Ultram oxycodone/ Neurontin and Flexeril from her PCP Prescription for magnesium oxide 400 mg daily dispense 30 with 3 refills MAPS Reviwed and it was apropriate . , Time with Patient: Less than 30 PQRS Measure Charge Sheet Measure #130: Documentation of Current Meds in Medical Chart: Patient's medications documented in chart Measure #226: Tobacco Use: Screen & Cessation Intervention: Pt not a tobacco user Measure #111: Pneumonia Vaccination: Pneumococcal vaccine administered or previously received Measure #47: Advance Care Plan: Advance care planning discussed & documented, pt chose/unable to give Measure #412: Opioid Treatment Agreement: No documentation of signed opioid treatment agreement Measure #408: Opioid Therapy Follow-up Evaluation: Patient had NO f/u eval minimum every 3 months during opioid therapy Measure #317: Preventitive Care & Scrn High Bld Press & F/U: Normal blood pressure, f/u not required Measure #128: Body Mass Index (BMI) Screening & Follow-up: BMI documented ABOVE normal parameters - f/u documented Measure #131: Pain Assessment & Follow-up: Pain positive & plan documented, Follow-up scheduled Measure #431: Unhealthy Alcohol Use Preventative Care & Scrn: Patient not identified as an unhealthy alcohol user PQRS Narrative: Smoking Status Former smoker Do You Want the Pneumonia Vaccine Up to Date Vaccine AT THIS TIME? Narcotic Agreement Date Signed 12/14/13 Blood Pressure 125/82 Pain Intensity [Bilateral 8 Posterior Neck] Scale Used Numeric (1 - 10) Hx Alcohol Use (MH) No Home Medications: Ambulatory Orders Albuterol Inhaler [Ventolin Inhaler] 2 puff INHALATION RT-BID 02/15/14 Sucralfate [Carafate] 1 gm PO BID PRN 02/15/14 oxyCODONE HCL [OxyIR] 5 mg PO Q6H PRN 02/15/14 traMADol HCl [Ultram] 50 mg PO QID PRN 02/15/14 traZODone HCL [Desyrel] 100 mg PO HS 02/15/14 Montelukast Sodium [Singulair] 10 mg PO HS 04/14/14 Cyclobenzaprine [Flexeril] 10 mg PO HS 08/28/14 Pilocarpine [Salagen] 5 mg PO QID 10/20/14 Alendronate Sodium 70 mg PO Q14D 03/15/15 Garlic 1 tab PO BID 10/17/16 Ipratropium Nebulized [Atrovent Nebulized] 0.5 mg INHALATION RT-QID PRN Triamcinolone Acetonide [Triamcinolone Acetonide 0.055MG Nasal] 1 spray EA NOSTRIL BID PRN 04/08/17 Albuterol Nebulized [Ventolin Nebulized] 2.5 mg INHALATION RT-QID 10/23/17 Magnesium Oxide [Mag-Ox] 400 mg PO DAILY #30 tablet 12/07/17 Methylphenidate HCl [Ritalin] 20 mg PO DAILY 12/07/17 Pnv No.95/Ferrous Fum/Folic AC [ Multivitamin Tablet] 1 tab PO DAILY rOPINIRole HCL [Requip] 1 mg PO HS 04/22/18 Biotin 5 mg PO BID 05/05/18 Budesonide [Pulmicort] 0.5 mg INHALATION RT-BID 05/05/18 EPINEPHrine [Epipen 2-Pipo] 0.3 mg IM ONCE PRN 05/05/18 Gabapentin [Neurontin] 300 mg PO TID 05/05/18 Digoxin [Lanoxin] 125 mcg PO DAILY 09/28/18 Controlled Substance Measures - Controlled Substance Measures Is patient prescribed a controlled substance at discharge?: No When asked, does pt state using other controlled substances?: No If prescribed controlled substance>3 days was MAPS reviewed?: No If Rx opioid, was Start Talking consent form obtained?: No If opioid is for acute pain is fill amount 7 days or less?: No Was information provided regarding opioid addiction?: No
== END | disposition home or self-care (01) ==
LOC: PNWHC3 11:44
PROVIDERS: ATTEND Specialist
DX: G89.29 Other chronic pain (principal); M54.5 Low back pain; M54.2 Cervicalgia; M51.36 Other intervertebral disc degeneration, lumbar region; M47.816 Spondylosis without myelopathy or radiculopathy, lumbar region; M46.86 Other specified inflammatory spondylopathies, lumbar region; M47.812 Spondylosis without myelopathy or radiculopathy, cervical region; M79.18 Myalgia, other site; Z98.890 Other specified postprocedural states; Z79.899 Other long term (current) drug therapy; Z87.891 Personal history of nicotine dependence
CPT/HCPCS: 99211

== ENCOUNTER 2018-10-19 05:55 | Day surgery (SDC) | payer OTHER ==
[~2018-10-19 05:55] MED LIST changes: -LACTATED RINGERS 1,000 ML IV SCH; +SODIUM CHLORIDE 0.9% 500 ML 500 ML IV SCH
[2018-10-19 06:29] VITALS: RESP 16; TEMP 97.5
[2018-10-19] MEDS ORDERED: LACTATED RINGERS 1,000 ML IV ONE (06:30)
[2018-10-19] MEDS ORDERED: LIDOCAINE 1% 20 ML VIAL (10MG/ML) FOR IV START INTRADERMA ONE (06:30)
[2018-10-19 06:31] LABS: Glucose,Whole Blood 91 mg/dL (75-99)
[2018-10-19] MEDS ORDERED: IV FLUID CONTINUATION 1,000 ML IV ONE (08:12)
--- NOTE | 2018-10-19 08:12 | P.PCN ---
Date of Procedure: 10/19/18 Procedure(s) Performed: PREOPERATIVE DIAGNOSIS: Cervical spondylosis with Facet Arthropathy without myelopathy. Myofascial pain syndrome ,cervicalgia ,and suprascapular area POSTOPERATIVE DIAGNOSIS: Cervical spondylosis with Facet Arthropathy without myelopathy. Myofascial pain syndrome ,cervical, and suprascapular area PROCEDURES: Radiofrequency thermocoagulation, Right C3-4, C4-5, C5-6 medial branch with Fluroscopy [place] Trigger point injection right side suprascapular muscle on the right side trapezius muscle, and left side suprascapular muscle (total of 3 trigger point injected ) ANESTHESIA: Local with 1% lidocaine 4 ml , moderate sedation with fentanyl 100 micrograms and Versed.2 mg EBL: Minimal PROCEDURE INDICATION: The patient with neck pain secondary to cervical arthropathy who had more than 50% relief of her pain with previous diagnostic cervical medial branch block. PROCEDURE DESCRIPTION / TECHNIQUE: The patient was seen and identified in the preoperative area. Risks, benefits, complications, and alternatives were discussed with the patient, the patient agreed to proceed with the procedure and signed the consent. IV was started. Vital signs remained stable throughout the procedure. Patient was taken to the OR and time out was completed. The patient was placed in the prone position on the procedure table. A pillow was placed under the patients chest to increase the cervical interlaminar space. The cervical area was prepped and draped in the usual sterile fashion. Critical pause was taken. Vital signs were closely monitored during the procedure. Conscious sedation was used during the procedure to decrease patients anxiety. Using cross-table lateral fluoroscopy, the centroid of the trapezoid of Right C3, C4, C5, were identified, marked, and localized with 1% lidocaine. Subsequently, a 20 [id number] radiofrequency cannula with a 10-mm active tip was advanced guided by fluoroscopy to the centroid of the trapezoid of the right C3, C4, C5, . Needle tip position was confirmed at the centroid of the trapezoids of right C3, C4, C5, with anteroposterior fluoroscopy. Each site then underwent sensory testing at 50 Hz and 0 to 1 volt and motor testing at 2 Hz and 0 to 3 volt with local stimulation, but no radicular symptoms down the arm. Thereafter the right C3, C4, C5 sites underwent radiofrequency thermocoagulation at 80 degrees celsius for 90 seconds after injecting 0.5 ml of PF lidocaine 1%. After thermocoagulation, 1 ml of the block solution containing Depomedrol 40 mg and 3 mL of preservative-free normal saline was injected at the C3, C4, C5, levels after negative aspiration of CSF and blood and with no paresthesias. Cannulas were retracted while injecting lidocaine 1% Then after than the trigger point injections done, using 25-gauge needle to trigger point injected in the right side suprascapular and right trapezius muscles on the right side And the left side suprascapular muscle, 2 male of preservative-free 0.5% ropivacaine injected at each trigger point after negative aspiration. Patient tolerated the procedure well without any complications COMPLICATIONS: No acute complications. DISPOSITION / PLANS: The patient was placed in a supine position and transferred to the recovery area in a stable condition for observation and was discharged from the recovery room after meeting discharge criteria. Home discharge instructions given to the patient by the staff. The patient was reexamined prior to discharge. The patient will schedule a follow up in the clinic in 2-4 weeks.
[2018-10-19 08:31] VITALS: BP 118/86; PULSE 87
--- NOTE | 2018-10-19 09:39 | FL ---
EXAMINATION TYPE: FL guided pain mgmt statistic DATE OF EXAM: 10/19/2018 FLUOROSCOPY Fluoroscopy time of 9 seconds was used during the cervical radiofrequency ablation. 2 image/s docume nt/s the procedure.
== END 2018-10-19 08:55 | disposition home or self-care (01) ==
LOC: ORPAIN 05:55
PROVIDERS: ATTEND Specialist
DX: M47.812 Spondylosis without myelopathy or radiculopathy, cervical region (principal); M47.816 Spondylosis without myelopathy or radiculopathy, lumbar region; M79.18 Myalgia, other site
CPT/HCPCS: 20553; 64633; 64634; J2250; J3301; 20552; 99152; 99153

== ENCOUNTER 2018-11-03 05:50 | Day surgery (SDC) | payer OTHER ==
[2018-11-03] MEDS ORDERED: SODIUM CHLORIDE 0.9% 500 ML 500 ML IV SCH (06:06)
[2018-11-03 06:36] VITALS: TEMP 98
[2018-11-03] MEDS ORDERED: LACTATED RINGERS 1,000 ML IV ONE (06:36)
[2018-11-03] MEDS ORDERED: LIDOCAINE 1% 20 ML VIAL (10MG/ML) FOR IV START INTRADERMA ONE (06:37)
[2018-11-03 06:39] LABS: Glucose,Whole Blood 97 mg/dL (75-99)
--- NOTE | 2018-11-03 07:39 | P.PCN ---
Date of Procedure: 11/03/18 Procedure(s) Performed: PREOPERATIVE DIAGNOSIS: Cervical spondylosis with Facet Arthropathy without myelopathy. Myofascial pain syndrome ,cervicalgia ,and suprascapular area POSTOPERATIVE DIAGNOSIS: Cervical spondylosis with Facet Arthropathy without myelopathy. Myofascial pain syndrome ,cervical, and suprascapular area PROCEDURES: Radiofrequency thermocoagulation, Left C3-4, C4-5, C5-6 medial branch with Fluroscopy [place] Trigger point injection on the right side trapezius muscle, and left side suprascapular muscle (total of 2 trigger point injected ) ANESTHESIA: Local with 1% lidocaine 4 ml , moderate sedation with fentanyl 100 micrograms and Versed.2 mg EBL: Minimal PROCEDURE INDICATION: The patient with neck pain secondary to cervical arthropathy who had more than 50% relief of her pain with previous diagnostic cervical medial branch block. PROCEDURE DESCRIPTION / TECHNIQUE: The patient was seen and identified in the preoperative area. Risks, benefits, complications, and alternatives were discussed with the patient, the patient agreed to proceed with the procedure and signed the consent. IV was started. Vital signs remained stable throughout the procedure. Patient was taken to the OR and time out was completed. The patient was placed in the prone position on the procedure table. A pillow was placed under the patients chest to increase the cervical interlaminar space. The cervical area was prepped and draped in the usual sterile fashion. Critical pause was taken. Vital signs were closely monitored during the procedure. Conscious sedation was used during the procedure to decrease patients anxiety. Using cross-table lateral fluoroscopy, the centroid of the trapezoid of Left C3, C4, C5, were identified, marked, and localized with 1% lidocaine. Subsequently, a 20 -wd radiofrequency cannula with a 10-mm active tip was advanced guided by fluoroscopy to the centroid of the trapezoid of the Left C3, C4, C5, . Needle tip position was confirmed at the centroid of the trapezoids of Left C3, C4, C5, with anteroposterior fluoroscopy. Each site then underwent sensory testing at 50 Hz and 0 to 1 volt and motor testing at 2 Hz and 0 to 3 volt with local stimulation, but no radicular symptoms down the arm. Thereafter the Left C3, C4, C5 sites underwent radiofrequency thermocoagulation at 80 degrees celsius for 90 seconds after injecting 0.5 ml of PF lidocaine 1%. After thermocoagulation, 1 ml of the block solution containing Depomedrol 40 mg and 3 mL of preservative-free normal saline was injected at the Left C3, C4, C5, levels after negative aspiration of CSF and blood and with no paresthesias. Cannulas were retracted while injecting lidocaine 1% Then after than the trigger point injections done, using 25-gauge needle to trigger point injected in the right trapezius muscles on the right side And the left side suprascapular muscle, 3 male of preservative-free 0.5% ropivacaine injected at each trigger point after negative aspiration. Patient tolerated the procedure well without any complications COMPLICATIONS: No acute complications. DISPOSITION / PLANS: The patient was placed in a supine position and transferred to the recovery area in a stable condition for observation and was discharged from the recovery room after meeting discharge criteria. Home discharge instructions given to the patient by the staff. The patient was reexamined prior to discharge. The patient will schedule a follow up in the clinic in 2-4 weeks.
[2018-11-03] MEDS ORDERED: IV FLUID CONTINUATION 1,000 ML IV ONE ×2 (07:40)
[2018-11-03 07:44] VITALS: RESP 18
[2018-11-03 07:59] VITALS: BP 123/85; PULSE 90
--- NOTE | 2018-11-03 08:07 | FL ---
EXAMINATION TYPE: FL guided pain mgmt statistic DATE OF EXAM: 11/03/2018 CLINICAL HISTORY: Neck pain. TECHNIQUE: Fluoroscopy. COMPARISON: None. FINDINGS: Fluoroscopic guidance was provided during pain relief procedure performed by Dr. Perez . A total of 7 seconds of fluoroscopic time was utilized during the procedure and two spot images ar e acquired. Images acquired shows needle localization at several levels in the upper to mid cervical spine. IMPRESSION: As Above.
== END 2018-11-03 08:27 | disposition home or self-care (01) ==
LOC: ORPAIN 05:50
PROVIDERS: ATTEND Specialist
DX: M47.812 Spondylosis without myelopathy or radiculopathy, cervical region (principal); M79.18 Myalgia, other site; I10 Essential (primary) hypertension; J44.9 Chronic obstructive pulmonary disease, unspecified; Z88.5 Allergy status to narcotic agent; Z88.8 Allergy status to other drugs, medicaments and biological substances; Z91.048 Other nonmedicinal substance allergy status
CPT/HCPCS: 20552; 64633; 64634 ×2; J2250; J1030; J3010; 99152; 99153

== ENCOUNTER → 2018-11-30 | Outpatient (CLI) | payer OTHER ==
[2018-11-30 12:19] VITALS: BP 124/81; PULSE 112; RESP 18
--- NOTE | 2018-11-30 12:42 | P.PAINPG ---
Subjective Progress Note Date: 11/30/18 This is a follow-up visit for this 58 years old female with a chronic history of severe neck pain, diagnosed with cervical spondylosis and myofascial pain syndrome cervical area, and she is diagnosed with lumbar spondylosis with lumbar facet arthropathy, recently we have done radiofrequency ablation of the medial branch cervical area patient reported that her neck pain improved significantly, and she is currently complaining of localized pain in the right shoulder blade area, it has not radiated anywhere she denies any fever or night sweats which she denies any motor or sensory deficit, and she is also complaining of severe low back pain increases with any activity, we did radiofrequency ablation of the medial branch lumbar area in 2017 patient had excellent pain relief, and her low back pain. More than 60% for more than one year , she denies any motor or sensory deficit Objective - Vital Signs Vital signs: Vital Signs Temp Pulse 112 H 11/30/18 12:13 Resp 18 11/30/18 12:13 BP 124/81 11/30/18 12:13 Pulse Ox Intake & Output 11/29/18 11/30/18 11/30/18 18:59 06:59 18:59 Weight 70.307 kg - Exam Physical Examinations : -Constitutiona : Cooperative , not in acute distress . -HEENT : nech ; supple , no Lymphadenopathy , normal thyroid size . eyes : no ptosis , no icterus, no photophobia . ENT : normal of hearing , normal oropharynx , no Thrush . - Respiratory : Chest clear to auscultations Bilaterally , no wheezing , no Rhonchi . - Cardiovascula : regular rate and rhythem , S1 , S2 , no S3 , no S4. - Gastrointestina : abdomen soft no tenderness , bowel sounds , no organomegally . - Genitourinary : Defferred . - neurologic : Cranial nerve II to XII intact , no focal neurological deffecit . -psychatric : alert , oriented X 3 , appropriate affect , intact judgment and insight . -Lymphatic : no Lymphadenopathy . - musculoskeltal : Cervical Spine motor stregnth in the deltoid and biceps, normal right side , normal Left side motor stregnth biceps and the wrist extensors normal right side ,normal left side . motor stregnth in the triceps muscle . normal Right side , normal Left side deep tendon reflexes normal at the biceps , normal at Brachioradialis , normal at triceps Trigger point identified in the right shoulder blade area Lumber spine moter stegnth lower extremities ,thigh and legs 5/5 Right side , 5/5 Left side deep tendon reflexes : normal Knee Jerk , normal ankle Jerk positive lumber facet Loading Test Range of motion of the lumbar spine Flexion 30 degrees, extension 10 degrees strait leg raising test , positive at 45 degree Fabere test positive RT and positi ve LT . Assessment and Plan Plan: Assessment and plan=1-cervical spondylosis with cervical facet arthropathy without myelopathy. Neck pain improved after radiofrequency ablation of the medial paracervical area. 2-myofascial pain syndrome right shoulder blade area. she could benefit from trigger point injections right side shoulder blade area. 3-lumbar spondylosis with lumbar facet arth ropathy without myelopathy. Patient had good results after the radiofrequency ablation medial branch lumbar area done more than a year ago ( apr 2017 ) Patient could benefit from repeat RFA of lumbar medial branch Time with Patient: Less than 30 PQRS Measure Charge Sheet Measure #130: Documentation of Current Meds in Medical Chart: Patient's medications documented in chart Measure #226: Tobacco Use: Screen & Cessation Intervention: Pt not a tobacco user Measure #111: Pneumonia Vaccination: Pneumococcal vaccine NOT administered or previously given Measure #47: Advance Care Plan: Advance care planning discussed & documented, pt chose/unable to give Measure #412: Opioid Treatment Agreement: No documentation of signed opioid treatment agreement Measure #408: Opioid Therapy Follow-up Evaluation: Patient had NO f/u eval minimum every 3 months during opioid therapy Measure #317: Preventitive Care & Scrn High Bld Press & F/U: Normal blood pressure, f/u not required Measure #128: Body Mass Index (BMI) Screening & Follow-up: BMI documented ABOVE normal parameters - f/u documented Measure #131: Pain Assessment & Follow-up: Pain positive & plan documented, Follow-up scheduled Measure #431: Unhealthy Alcohol Use Preventative Care & Scrn: Patient not identified as an unhealthy alcohol user PQRS Narrative: Smoking Status Former smoker Do You Want the Pneumonia Vaccine Up to Date Vaccine AT THIS TIME? Narcotic Agreement Date Signed 12/14/13 Blood Pressure 124/81 Pain Intensity [Bilateral 7 Lower Back] Pain Intensity [Right 5 Posterior Shoulder] Hx Alcohol Use (MH) No Home Medications: Ambulatory Orders Albuterol Inhaler [Ventolin Inhaler] 2 puff INHALATION RT-BID 02/15/14 Sucralfate [Carafate] 1 gm PO BID PRN 02/15/14 traMADol HCl [Ultram] 50 mg PO QID PRN 02/15/14 traZODone HCL [Desyrel] 100 mg PO HS 02/15/14 Montelukast Sodium [Singulair] 10 mg PO HS 04/14/14 Cyclobenzaprine [Flexeril] 10 mg PO HS 08/28/14 Pilocarpine [Salagen] 5 mg PO QID 10/20/14 Alendronate Sodium 70 mg PO Q14D 03/15/15 Garlic 1 tab PO BID 10/17/16 Ipratropium Nebulized [Atrovent Nebulized] 0.5 mg INHALATION RT-QID PRN 04/08/17 Triamcinolone Acetonide [Triamcinolone Acetonide 0.055MG Nasal] 1 spray EA NOSTRIL BID PRN 04/08/17 Albuterol Nebulized [Ventolin Nebulized] 2.5 mg INHALATION RT-QID 10/23/17 Magnesium Oxide [Mag-Ox] 400 mg PO DAILY #30 tablet 12/07/17 Pnv No.95/Ferrous Fum/Folic AC [ Multivitamin Tablet] 1 tab PO DAILY 0 04/22/18 rOPINIRole HCL [Requip] 1 mg PO HS 04/22/18 Biotin 5 mg PO BID 05/05/18 Budesonide [Pulmicort] 0.5 mg INHALATION RT-BID 05/05/18 EPINEPHrine [Epipen 2-Pipo] 0.3 mg IM ONCE PRN 05/05/18 Gabapentin [Neurontin] 300 mg PO TID 05/05/18 Digoxin [Lanoxin] 125 mcg PO DAILY 09/28/18 Dicyclomine [Bentyl] 10 mg PO TID PRN 10/18/18 Controlled Substance Measures - Controlled Substance Measures Is patient prescribed a controlled substance at discharge?: No
== END ==
LOC: PNWHC3 12:01
PROVIDERS: ATTEND Specialist
DX: M47.812 Spondylosis without myelopathy or radiculopathy, cervical region (principal); M46.96 Unspecified inflammatory spondylopathy, lumbar region; M79.18 Myalgia, other site; M47.816 Spondylosis without myelopathy or radiculopathy, lumbar region; Z87.891 Personal history of nicotine dependence; Z79.899 Other long term (current) drug therapy
CPT/HCPCS: 99211

== ENCOUNTER 2018-12-16 06:13 | Day surgery (SDC) | payer OTHER ==
[2018-12-15 09:40] VITALS: BMI 26.6
[~2018-12-16 06:13] MED LIST changes: +LACTATED RINGERS 1,000 ML IV SCH; -SODIUM CHLORIDE 0.9% 500 ML 500 ML IV SCH
[2018-12-16 06:46] VITALS: RESP 16; TEMP 98.3
[2018-12-16 06:58] LABS: Glucose,Whole Blood 93 mg/dL (75-99)
[2018-12-16] MEDS ORDERED: LIDOCAINE 1% 20 ML VIAL (10MG/ML) FOR IV START INTRADERMA ONE (06:58)
--- NOTE | 2018-12-16 08:03 | P.PCN ---
Date of Procedure: 12/16/18 Procedure(s) Performed: PREOPERATIVE DIAGNOSIS: 1-Lumbar Spondylosis with Facet Arthropathy without myelopathy. 2-myofascial pain syndrome right side shoulder blade area POSTOPERATIVE DIAGNOSIS: 1- Lumbar Spondylosis with Facet Arthropathy without myelopathy. 2- myofascial pain syndrome right side shoulder blade area PROCEDURES : 1- Right Radiofrequency thermocoagulation, L3-L4, L4-L5, and L5- S1 medial branch, with fluoroscopic guidance. 2-trigger point injections right side shoulder blade area total of 2 trigger points injected ANESTHESIA: Moderate sedation with intravenous versed 2 mg and fentaneyl 100 mcg, and local infiltration with Ropivacaine 0.5 % . EBL: Minimal PROCEDURE INDICATION: The patient with low back pain secondary to lumbar facet arthropathy who had more than 50% relief of her pain with previous diagnostic lumbar medial branch block with bupivacaine. PROCEDURE DESCRIPTION / TECHNIQUE: The patient was seen and identified in the preoperative area. Risks, benefits, complications, including but not limited to risk of infection ,bleeding , allergic reactions to the medications and no complete pain releife , and alternatives were discussed with the patient, the patient agreed to proceed with the procedure and signed the consent. IV was started. Vital signs remained stable throughout the procedure. Patient was taken to the OR and time out was completed. The patient was placed in the prone position on the procedure table. The lumber area was prepped and draped in the usual sterile fashion. . Vital signs were closely monitored during the procedure .IV sedation was used during the procedure to decrease patients anxiety. Using AP and then oblique fluoroscopy, the ``eye of the Riley dog corresponding to the connection between the superior and transverse articular processes of right L3, L4, and L5 were identified, marked, and localized with 1% lidocaine. Subsequently, a 18 [id number] radiofrequency cannula with a 10- mm active tip was advanced guided by fluoroscopy to each of the``eyes of the Riley dog at right L3, L4, and L5. Each site then underwent sensory testing at 50 Hz and 0 to 1 volt and motor testing at 2.5 Hz and 0 to 3 volt with local stimulation, but no radicular symptoms down the legs. Thereafter the right L3-4, L4-5, and L5-S1 sites underwent radiofrequency thermocoagulation at 80 degrees celsius for 90 seconds after injecting 0.5 ml of PF Ropivacaine 1ml, then after the thermocoagulation done , 1 ml of the block solution containing Depo-Medrol 40 mg and 3 ml of Ropivacaine 0.5% was injected at the right L3-4 , L4-5 , and L5-S1, levels after negative aspiration of CSF and blood and with no paresthesias. Cannulas were retracted while injecting lidocaine 1% until the needle is out. Then the trigger point injection done in the standard technique, to trigger point injected in the right side shoulder blade area , using 25-gauge needle, each of the trigger point injected with ropivacaine 0.5% 3 mL injected at each trigger point after negative aspiration, from the was no paresthesia during the injection, patient tolerated the procedure well without any complications At the end of the procedure, the skin was cleansed and bandages were applied. COMPLICATIONS: No acute complications. DISPOSITION / PLANS: The patient was placed in a supine position and transferred to the recovery area in a stable condition for observation and was discharged from the recovery room after meeting discharge criteria. Home discharge instructions given to the patient by the staff. The patient was reexamined prior to discharge. The patient will schedule a follow up in the clinic in 2-4 weeks.
[2018-12-16] MEDS ORDERED: IV FLUID CONTINUATION 1,000 ML IV ONE (08:08)
[2018-12-16 08:20] VITALS: BP 117/79; PULSE 87
--- NOTE | 2018-12-16 08:41 | FL ---
EXAMINATION TYPE: FL guided pain mgmt statistic DATE OF EXAM: 12/16/2018 CLINICAL HISTORY: Low back pain. TECHNIQUE: Fluoroscopy. COMPARISON: None. FINDINGS: Fluoroscopic guidance was provided during pain relief procedure performed by Dr. Perez . A total of 12 seconds of fluoroscopic time was utilized during the procedure and 3 spot images are acquired. Images acquired shows needle localization the lumbar spine at multiple levels. IMPRESSION: As Above.
== END 2018-12-16 08:30 | disposition home or self-care (01) ==
LOC: ORPAIN 06:13
PROVIDERS: ATTEND Specialist
DX: M47.816 Spondylosis without myelopathy or radiculopathy, lumbar region (principal); M79.18 Myalgia, other site
CPT/HCPCS: 20552; 64635; 64636 ×2; J2250; J1030; J3010; 99152

== ENCOUNTER 2019-01-04 05:58 | Day surgery (SDC) | payer OTHER ==
[2019-01-03 08:29] VITALS: BMI 26.6
[2019-01-04 06:27] VITALS: RESP 16; TEMP 98.4
[2019-01-04] MEDS ORDERED: LIDOCAINE 1% 20 ML VIAL (10MG/ML) FOR IV START INTRADERMA ONE (06:32)
[2019-01-04 06:34] LABS: Glucose,Whole Blood 95 mg/dL (75-99)
--- NOTE | 2019-01-04 07:44 | P.PCN ---
Date of Procedure: 01/04/19 Procedure(s) Performed: PREOPERATIVE DIAGNOSIS: 1-Lumbar Spondylosis with Facet Arthropathy without myelopathy. 2-myofascial pain syndrome right side shoulder blade area POSTOPERATIVE DIAGNOSIS: 1- Lumbar Spondylosis with Facet Arthropathy without myelopathy. 2- myofascial pain syndrome right side shoulder blade area PROCEDURES : 1- Left Radiofrequency thermocoagulation, L3-L4, L4-L5, and L5-S1 medial branch, with fluoroscopic guidance. 2-trigger point injections right side shoulder blade area total of 2 trigger points injected ANESTHESIA: Moderate sedation with intravenous versed 2 mg and fentaneyl 100 mcg, and local infiltration with Ropivacaine 0.5 % . EBL: Minimal PROCEDURE INDICATION: The patient with low back pain secondary to lumbar facet arthropathy who had more than 50% relief of her pain with previous diagnostic lumbar medial branch block with bupivacaine. PROCEDURE DESCRIPTION / TECHNIQUE: The patient was seen and identified in the preoperative area. Risks, benefits, complications, including but not limited to risk of infection ,bleeding , allergic reactions to the medications and no complete pain releife , and alternatives were discussed with the patient, the patient agreed to proceed with the procedure and signed the consent. IV was started. Vital signs remained stable throughout the procedure. Patient was taken to the OR and time out was completed. The patient was placed in the prone position on the procedure table. The lumber area was prepped and draped in the usual sterile fashion. . Vital signs were closely monitored during the procedure .IV sedation was used during the procedure to decrease patients anxiety. Using AP and then oblique fluoroscopy, the ``eye of the Riley dog corresponding to the connection between the superior and transverse articular processes of Left L3, L4, and L5 were identified, marked, and localized with 1% lidocaine. Subsequently, a 18 [id number] radiofrequency cannula with a 10-mm active tip was advanced guided by fluoroscopy to each of the``eyes of the Riley dog at Left L3, L4, and L5. Each site then underwent sensory testing at 50 Hz and 0 to 1 volt and motor testing at 2.5 Hz and 0 to 3 volt with local stimulation, but no radicular symptoms down the legs. Thereafter the Left L3-4, L4-5, and L5-S1 sites underwent radiofrequency thermocoagulation at 80 degrees celsius for 90 seconds after injecting 0.5 ml of PF Ropivacaine 1ml, then after the thermocoagulation done , 1 ml of the block solution containing Depo-Medrol 40 mg and 3 ml of Ropivacaine 0.5% was injected at the Left L3-4 , L4-5 , and L5-S1, levels after negative aspiration of CSF and blood and with no paresthesias. Cannulas were retracted while injecting lidocaine 1% until the needle is out. Then the trigger point injection done in the standard technique, to trigger p oint injected in the right side shoulder blade area , using 25-gauge needle, each of the trigger point injected with ropivacaine 0.5% 3 mL injected at each trigger point after negative aspiration, from the was no paresthesia during the injection, patient tolerated the procedure well without any complications At the end of the procedure, the skin was cleansed and bandages were applied. COMPLICATIONS: No acute complications. DISPOSITION / PLANS: The patient was placed in a supine position and transferred to the recovery area in a stable condition for observation and was discharged from the recovery room after meeting discharge criteria. Home discharge instructions given to the patient by the staff. The patient was reexamined prior to discharge. The patient will schedule a follow up in the clinic in 2-4 weeks.
[2019-01-04] MEDS ORDERED: IV FLUID CONTINUATION 1,000 ML IV ONE (07:49)
[2019-01-04 08:03] VITALS: BP 113/74; PULSE 84
--- NOTE | 2019-01-04 08:06 | FL ---
EXAMINATION TYPE: FL guided pain mgmt statistic DATE OF EXAM: 01/04/2019 FLUOROSCOPY Fluoroscopy time of 10 seconds was used during radiofrequency left lumbar facet block. 3 image/s doc ument/s the procedure.
== END 2019-01-04 08:16 | disposition home or self-care (01) ==
LOC: ORPAIN 05:58
PROVIDERS: ATTEND Specialist
DX: M47.816 Spondylosis without myelopathy or radiculopathy, lumbar region (principal); M79.18 Myalgia, other site
CPT/HCPCS: 20552; 64635; 64636 ×2; J2250; J1030; J3010; 99152

== ENCOUNTER → 2019-01-25 | Outpatient (CLI) | payer OTHER ==
[2019-01-25 10:56] VITALS: BP 116/81; PULSE 108; RESP 18
--- NOTE | 2019-01-25 11:40 | P.PN ---
Subjective Progress Note Date: 01/25/19 Elizabeth is a 58-year-old female presents today for follow-up. She has a history of lumbar spondylosis and cervical spondylosis. She resents today reporting that her back and neck significant improved since having the radiofrequency ablation. She continues to have pain in bilateral hips which she reports is a chronic issue. She reports she is having hip injections from Dr. Killian in the past. She also reports that she has fibromyalgia and has had this for a long time but pain throughout her body. She currently takes Ultram, gabapentin, magnesium daily. She is also requesting a referral to see Dr. Salmeron for opioid medication management. She reports that she has pain in both hips with sitting for prolonged periods or standing up from a seated position. Objective - Vital Signs Vital signs: Vital Signs Temp Pulse 108 H 01/25/19 10:50 Resp 18 01/25/19 10:50 BP 116/81 01/25/19 10:50 Pulse Ox 97 01/25/19 10:50 Intake & Output 01/24/19 01/25/19 01/25/19 18:59 06:59 18:59 Weight 74.843 kg - Exam General: Awake and alert oriented 3 no distress Respiratory exam: No audible wheezing no accessory muscle usage Cardiovascular exam: regular rate, palpable bilateral pulses, no lower extremity edema Abdominal exam: No distention nontender to palpation Cervical spine: Normal alignment, facet loading is positive bilateral. There is limited range of motion with sidebending. Lumbar spine: Loss of lumbar lordosis, normal alignment, tender to palpation over bilateral paraspinal muscles, facet loading is positive bilaterally. Straight leg raise is negative. Limited range of motion due to pain with flexion, extension and side bending. Hips: Tender to palpation of the hip joint. There is limited range of motion of internal and external rotation of the hip joint. Extension of the hip is limited. Flexion of the hip is normal Sacroiliac joints: Nontender to palpation, IVIS is negative, Gaenselon negative Neuro exam: Normal sensation in bilateral upper extremities, deep tendon reflexes are 2+ bilateral upper extremities. Normal sensation in bilateral lower extremities. Deep tendon reflexes are 2+ in lower extremities Psych exam: Cooperative, appropriate mood Assessment and Plan Assessment: #1 hip osteoarthritis #2 cervical spondylosis without myelopathy #3 lumbar spondylosis without myelopathy #4 fibromyalgia Plan: Patient like to move forward with bilateral hip injections. She's had very good results of these injections in the past. She would also like a referral to see Dr. Lund for opioid management. I've given her referral to see Dr. Lund and of given her prescription for her magnesium 400 mg daily. We will also set her up to have bilateral hip injection under fluoroscopy with sedation
== END ==
LOC: PNWHC3 10:27
PROVIDERS: ATTEND Hospitalist
DX: M47.816 Spondylosis without myelopathy or radiculopathy, lumbar region (principal); M47.812 Spondylosis without myelopathy or radiculopathy, cervical region; M79.7 Fibromyalgia; M16.10 Unilateral primary osteoarthritis, unspecified hip
CPT/HCPCS: 99211

== ENCOUNTER → 2019-09-14 | Outpatient (CLI) | payer OTHER ==
[2019-09-14 11:37] VITALS: BP 127/77; PULSE 95; RESP 18
--- NOTE | 2019-09-15 10:14 | P.PAINPG ---
Subjective Progress Note Date: 09/14/19 This is a follow-up visit for this 58 years old female with a chronic history of severe neck pain, diagnosed with cervical spondylosis, myofascial pain syndrome cervical area, and lumbar spondylosis with lumbar facet arthropathy, ONE YEAR AGO have done radiofrequency ablation of the medial branch cervical area patient reported that her neck pain improved significantly, and she is currently complaining of pain in the neck and shoulder area , it has not radiated anywhere she denies any fever or night sweats which she denies any motor or sensory deficit,the pain increases with any activity , she denies any motor or sensory deficit Objective - Vital Signs Vital signs: Vital Signs Temp Pulse 95 09/14/19 11:24 Resp 18 09/14/19 11:24 BP 127/77 09/14/19 11:24 Pulse Ox 96 09/14/19 11:24 - Exam Physical Examinations : -Constitutiona : Cooperative , not in acute distress . -HEENT : nech ; supple , no Lymphadenopathy , normal thyroid size . eyes : no ptosis , no icterus, no photophobia . ENT : normal of hearing , normal oropharynx , no Thrush . - Respiratory : Chest clear to auscultations Bilaterally , no wheezing , no Rhonchi . - Cardiovascula : regular rate and rhythem , S1 , S2 , no S3 , no S4. - Gastrointestina : abdomen soft no tenderness , bowel sounds , no organomegally . - Genitourinary : Defferred . - neurologic : Cranial nerve II to XII intact , no focal neurological deffecit . -psychatric : alert , oriented X 3 , appropriate affect , intact judgment and insight . -Lymphatic : no Lymphadenopathy . - musculoskeltal : Cervical Spine motor stregnth in the deltoid and biceps, normal right side , normal Left side motor stregnth biceps and the wrist extensors normal right side ,normal left side . motor stregnth in the triceps muscle . normal Right side , normal Left side deep tendon reflexes normal at the biceps , normal at Brachioradialis , normal at triceps Facet loading test positive bilaterally. Multiple trigger point identified in the cervical area, cervical paraspinal muscles and shoulder blade area bilaterally Lumber spine moter stegnth lower extremities ,thigh and legs 5/5 Right side , 5/5 Left side deep tendon reflexes : normal Knee Jerk , normal ankle Jerk positive lumber facet Loading Test Range of motion of the lumbar spine Flexion 30 degrees, extension 10 degrees strait leg raising test , positive at 45 degree Fabere test positive RT and positive LT . Assessment and Plan Plan: Assessment and plan=1-cervical spondylosis with cervical facet arthropathy without myelopathy. Neck pain improved after radiofrequency ablation of the medial paracervical area bilaterally. 2-myofascial pain syndrome cervical and shoulder blade area. she could benefit from trigger point injections cervical and shoulder blade area biaterally 3-lumbar spondylosis with lumbar facet arthropathy without myelopathy. Patient currently on Ultram 100 mg daily at bedtime and 50 mg 3 times a day, Neurontin 300 mg 3 times a day, Flexeril 10 mg daily at bedtime, and she is getting prescription refills from her primary care and she will continue to get her refills from her primary care Time with Patient: Less than 30 PQRS Measure Charge Sheet Measure #130: Documentation of Current Meds in Medical Chart: Patient's medications documented in chart Measure #226: Tobacco Use: Screen & Cessation Intervention: Pt not a tobacco user Measure #111: Pneumonia Vaccination: Pneumococcal vaccine administered or previously received Measure #47: Advance Care Plan: Advance care planning discussed & documented, pt chose/unable to give Measure #412: Opioid Treatment Agreement: No documentation of signed opioid treatment agreement Measure #408: Opioid Therapy Follow-up Evaluation: Patient had NO f/u eval minimum every 3 months during opioid therapy Measure #317: Preventitive Care & Scrn High Bld Press & F/U: Normal blood pressure, f/u not required Measure #128: Body Mass Index (BMI) Screening & Follow-up: BMI documented ABOVE normal parameters - f/u documented Measure #131: Pain Assessment & Follow-up: Pain positive & plan documented, Follow-up scheduled Measure #431: Unhealthy Alcohol Use Preventative Care & Scrn: Patient not identified as an unhealthy alcohol user PQRS Narrative: Smoking Status Former smoker Narcotic Agreement Date Signed 12/14/13 Blood Pressure 127/77 Pain Intensity [Neck] 8 Pain Intensity [None] 0 Scale Used Numeric (1 - 10) Hx Alcohol Use (MH) No Home Medications: Ambulatory Orders Albuterol Inhaler [Ventolin Inhaler] 2 puff INHALATION DIRECTED PRN 02/15/14 Sucralfate [Carafate] 1 gm PO BID PRN 02/15/14 traMADol HCl [Ultram] 50 mg PO TID 02/15/14 traZODone HCL [Desyrel] 100 mg PO HS 02/15/14 Montelukast Sodium [Singulair] 10 mg PO HS 04/14/14 Cyclobenzaprine [Flexeril] 10 mg PO HS 08/28/14 Pilocarpine [Salagen] 5 mg PO QID 10/20/14 Alendronate Sodium 70 mg PO Q7DAYS 03/15/15 Garlic 1 tab PO DAILY 10/17/16 Triamcinolone Acetonide [Triamcinolone Acetonide 0.055MG Nasal] 1 spray EA NOSTRIL BID PRN 04/08/17 Albuterol Nebulized [Ventolin Nebulized] 2.5 mg INHALATION RT-QID 10/23/17 Magnesium Oxide [Mag-Ox] 400 mg PO DAILY #30 tablet 12/07/17 rOPINIRole HCL [Requip] 1 mg PO HS 04/22/18 EPINEPHrine [Epipen 2-Pipo] 0.3 mg IM ONCE PRN 05/05/18 Gabapentin [Neurontin] 300 mg PO TID 05/05/18 Digoxin [Lanoxin] 125 mcg PO DAILY 09/28/18 Dicyclomine [Bentyl] 10 mg PO TID PRN 10/18/18 Multivitamins, Thera [Multivitamin (formulary)] 1 tab PO DAILY 12/15/18 Budesonide [Pulmicort Flexhaler] 2 puff INHALATION BID 09/08/19 Ipratropium Nebulized [Atrovent Nebulized 0.2 MG/ML] 0.5 mg INHALATION QID 09/08/19 Oxybutynin Chloride [Ditropan XL] 5 mg PO DAILY 09/08/19 Verapamil HCl [Verapamil ER] 120 mg PO HS 09/08/19 Zinc 50 mg PO DAILY 09/08/19 Controlled Substance Measures - Controlled Substance Measures Is patient prescribed a controlled substance at discharge?: No
--- NOTE | 2019-09-26 15:34 | P.PN ---
Progress Note - Text Progress Note Date: 09/26/19 this is addendum to the note dictated on 09/14/2019 Patient had trigger point injection in the cervical and shoulder blade area done last year, and she got more than 80% relief, after the trigger point injection, and she got pain relief that is lasted for 8 months
== END | disposition home or self-care (01) ==
LOC: PNWHC3 11:12
PROVIDERS: ATTEND Specialist
DX: G89.29 Other chronic pain (principal); M47.812 Spondylosis without myelopathy or radiculopathy, cervical region; M47.816 Spondylosis without myelopathy or radiculopathy, lumbar region; M46.92 Unspecified inflammatory spondylopathy, cervical region; M46.96 Unspecified inflammatory spondylopathy, lumbar region; M79.18 Myalgia, other site; Z87.891 Personal history of nicotine dependence; Z98.890 Other specified postprocedural states; Z79.891 Long term (current) use of opiate analgesic; Z79.899 Other long term (current) drug therapy
CPT/HCPCS: 99211

== ENCOUNTER 2019-10-03 06:06 | Day surgery (SDC) | payer OTHER ==
[2019-09-29 14:42] VITALS: BMI 26.8
[~2019-10-03 06:06] MED LIST changes: +BUPIVACAINE (PF) 0.5% 30 ML VIAL ONE; -LACTATED RINGERS 1,000 ML IV SCH; +MIDAZOLAM 2 MG/2 ML VIAL ONE; +fentaNYL (PF) 50 MCG/ML 2 ML AMP ONE; +methylPREDNISolone ACETATE 40 MG/ML 1 ML VIAL ONE
[2019-10-03 06:41] VITALS: TEMP 98.4
[2019-10-03 06:50] LABS: Glucose,Whole Blood 96 mg/dL (75-99)
[2019-10-03] MEDS: LACTATED RINGERS 1,000 ML IV SCH ×2 (06:50→07:01)
[2019-10-03] MEDS ORDERED: LIDOCAINE 1% 20 ML VIAL (10MG/ML) FOR IV START INTRADERMA ONE (06:51)
--- NOTE | 2019-10-03 07:31 | P.PCN ---
Date of Procedure: 10/03/19 Procedure(s) Performed: PREOPERATIVE DIAGNOSIS: 1-Cervical spondylosis with Facet Arthropathy without myelopathy. 2-myofascial pain syndrome and cervical area and shoulder blade area. 3-lumbar spondylosis with lumbar facet arthropathy without myelopathy POSTOPERATIVE DIAGNOSIS: Same as preop diagnosis PROCEDURES: Radiofrequency thermocoagulation Left C3, C4, C5 medial branch with Fluroscopy [place](fluoroscopy was available in etiology department ) (to denervate the facet joint at C3- 4 , C4- 5 ) ANESTHESIA: Local with Ropivacaine 0.5 % , moderate sedation with fentanyl 100 micrograms and Versed.2 mg EBL: Minimal PROCEDURE INDICATION: The patient with neck pain secondary to cervical arthropathy who had more than 50% relief of her pain with previous diagnostic cervical medial branch block. PROCEDURE DESCRIPTION / TECHNIQUE: The patient was seen and identified in the preoperative area. Risks, benefits, complications, and alternatives were discussed with the patient, the patient agreed to proceed with the procedure and signed the consent. IV was started. Vital signs remained stable throughout the procedure. Patient was taken to the OR and time out was completed. The patient was placed in the prone position on the procedure table. A pillow was placed under the patients chest to increase the cervical interlaminar space. The cervical area was prepped and draped in the usual sterile fashion. Critical pause was taken. Vital signs were closely monitored during the procedure. Conscious sedation was used during the procedure to decrease patients anxiety. Using cross-table lateral fluoroscopy, the centroid of the trapezoid of left C3, C4, C5, were identified, marked, and localized with 1% lidocaine. Subsequently, a 20 -hx radiofrequency cannula with a 10-mm active tip was advanced guided by fluoroscopy to the centroid of the trapezoid of left C3, C4, C5, . Needle tip position was confirmed at the centroid of the trapezoids of left C3, C4, C5, with anteroposterior fluoroscopy. Each site then underwent sensory testing at 50 Hz and 0 to 1 volt and motor testing at 2 Hz and 0 to 3 volt with local stimulation, but no radicular symptoms down the arm. Thereafterthe left C3, C4, C5 sites underwent radiofrequency thermocoagulation at 80 degrees celsius for 90 seconds after injecting 0.5 ml of PF Ropivacaine 0.5 %. After thermocoagulation, 1 ml of the block solution containing Depo- Medrol 40 mg and 3 mL of preservative-free normal saline was injected at the left C3, C4, C5, levels after negative aspiration of CSF and blood and with no paresthesias. Cannulas were retracted while injecting lidocaine 1% until the needle is out. Skin was cleansed and bandages were applied. COMPLICATIONS: No acute complications. DISPOSITION / PLANS: The patient was placed in a supine position and transferred to the recovery area in a stable condition for observation and was discharged from the recovery room after meeting discharge criteria. Home discharge instructions given to the patient by the staff. The patient was reexamined prior to discharge. The patient will schedule a follow up in the clinic in 2-4 weeks.
[2019-10-03] MEDS ORDERED: IV FLUID CONTINUATION 750 ML IV ONE (07:33)
[2019-10-03 07:53] VITALS: BP 121/78; PULSE 76; RESP 20
--- NOTE | 2019-10-03 09:28 | FL ---
Fluoroscopy INDICATION: Pain FINDINGS: Fluoroscopy time: 8 seconds. Images obtained: 2. IMPRESSIONS: 1. Documentation of fluoroscopy.
== END 2019-10-03 08:03 | disposition home or self-care (01) ==
LOC: ORPAIN 06:06
PROVIDERS: ATTEND Specialist
DX: M47.812 Spondylosis without myelopathy or radiculopathy, cervical region (principal); M79.18 Myalgia, other site; M47.816 Spondylosis without myelopathy or radiculopathy, lumbar region; J45.909 Unspecified asthma, uncomplicated; Z78.0 Asymptomatic menopausal state
CPT/HCPCS: 64633; 64634; J2250; J1030; J3010; 99152

== ENCOUNTER 2019-10-19 06:07 | Day surgery (SDC) | payer OTHER ==
[2019-10-18 08:45] VITALS: BMI 26.9
[~2019-10-19 06:07] MED LIST changes: -BUPIVACAINE (PF) 0.5% 30 ML VIAL ONE; +LACTATED RINGERS 1,000 ML IV SCH; -MIDAZOLAM 2 MG/2 ML VIAL ONE; -fentaNYL (PF) 50 MCG/ML 2 ML AMP ONE; -methylPREDNISolone ACETATE 40 MG/ML 1 ML VIAL ONE
[2019-10-19] MEDS ORDERED: LIDOCAINE 1% 20 ML VIAL (10MG/ML) FOR IV START INTRADERMA ONE (06:45)
[2019-10-19 06:46] VITALS: TEMP 98.9
[2019-10-19 06:54] LABS: Glucose,Whole Blood 86 mg/dL (75-99)
--- NOTE | 2019-10-19 06:55 | P.GSHP ---
History of Present Illness H&P Date: 10/19/19 This is 59 years old female with a chronic history of severe neck pain, and low back pain, she diagnosed with cervical spondylosis with cervical facet arthropathy and lumbar spondylosis with lumbar facet arthropathy and myofascial pain syndrome, she is here today to have radiofrequency ablation of the medial branch cervical area on the right side at C3, C4, C5, under fluoroscopy guidance Past Medical History Past Medical History: Asthma, Chest Pain / Angina, COPD, Diabetes Mellitus, Fibromyalgia, GERD/Reflux, Hearing Disorder / Deafness, Hyperlipidemia, Hypertension, Liver Disease, Osteoarthritis (OA), Renal Disease, Rheumatoid Arthritis (RA), Skin Disorder, Thyroid Disorder Additional Past Medical History / Comment(s): HX of Hep. C, hx liver failure from Lisinopril, DDD, Sjogren's syndrome. States diet controlled diabetes, restless leg syndrome, irregular heartbeat - sinus tachycardia, diverticulitis, "touch of crohns", IBS, overactive bladder, psoriasis, thyroid nodules, hx anemia, bleeds easily, plantar faciitis, partially deaf right ear. History of Any Multi-Drug Resistant Organisms: None Reported Past Surgical History: Cholecystectomy, Hernia Repair, Orthopedic Surgery, Tubal Ligation Additional Past Surgical History / Comment(s): [facility], eye surgery, right little toe fracture, HIATAL HERNIA, Umbilical hernia X2; [facility], bilateral toenails removed, lipoma removed right shoulder, hemorrhoidectomy x 2. pain clinic procedures Past Anesthesia/Blood Transfusion Reactions: Motion Sickness Smoking Status: Former smoker - Past Family History Father Family Medical History: Cancer Additional Family Medical History / Comment(s): Colon cancer. Mother Family Medical History: Cancer Additional Family Medical History / Comment(s): Uterine, skin cancer. Medications and Allergies Home Medications Medication Instructions Recorded Confirmed Type Albuterol Inhaler [Ventolin 2 puff INHALATION DIRECTED PRN 02/15/14 10/19/19 History Inhaler] Sucralfate [Carafate] 1 gm PO BID PRN 02/15/14 10/19/19 History traMADol HCl [Ultram] 50 mg PO TID 02/15/14 10/19/19 History traZODone HCL [Desyrel] 100 mg PO HS 02/15/14 10/19/19 History Montelukast Sodium [Singulair] 10 mg PO HS 04/14/14 10/19/19 History Cyclobenzaprine [Flexeril] 10 mg PO HS 08/28/14 10/19/19 History Pilocarpine [Salagen] 5 mg PO QID 10/20/14 10/19/19 History Alendronate Sodium 70 mg PO Q7DAYS 03/15/15 10/19/19 History Garlic 1 tab PO DAILY 10/17/16 10/19/19 History Triamcinolone Acetonide 1 spray EA NOSTRIL BID PRN 04/08/17 10/19/19 History [Triamcinolone Acetonide 0.055MG Nasal] Albuterol Nebulized [Ventolin 2.5 mg INHALATION RT-QID 10/23/17 10/19/19 History Nebulized] Magnesium Oxide [Mag-Ox] 400 mg PO DAILY #30 tablet 12/07/17 10/19/19 Rx rOPINIRole HCL [Requip] 1 mg PO HS 04/22/18 10/19/19 History EPINEPHrine [Epipen 2-Pipo] 0.3 mg IM ONCE PRN 05/05/18 10/19/19 History Gabapentin [Neurontin] 300 mg PO TID 05/05/18 10/19/19 History Digoxin [Lanoxin] 125 mcg PO DAILY 09/28/18 10/19/19 History Dicyclomine [Bentyl] 10 mg PO TID PRN 10/18/18 10/19/19 History Multivitamins, Thera [Multivitamin 1 tab PO DAILY 12/15/18 10/19/19 History (formulary)] Budesonide [Pulmicort Flexhaler] 2 puff INHALATION BID 09/08/19 10/19/19 History Verapamil HCl [Verapamil ER] 120 mg PO HS 09/08/19 10/19/19 History Allergies Allergy/AdvReac Type Severity Reaction Status Date / Time JOSE Inhibitors Allergy Severe kidney and Verified 10/19/19 06:47 liver failure, dehydration morphine Allergy Severe SWELLING,RASH,SWELLING Verified 10/19/19 06:47 OF TONGUE,ABDOMINAL PAIN venom-honey bee Allergy Severe SHORTNESS Verified 10/19/19 06:47 OF BREATH,VOMITING, rash, swelling adhesive Allergy skin peels Verified 10/19/19 06:47 off(plastic & bandaids), paper/cloth tape ok amitriptyline Allergy tongue Verified 10/19/19 06:47 swelling/rash aspirin Allergy Anaphylaxis,vomting, Verified 10/19/19 06:47 tongue swelling, SOB, rash atorvastatin calcium Allergy Anaphylaxis, Verified 10/19/19 06:47 [From Lipitor] vomting, rash bee pollen Allergy Anaphylaxis Verified 10/19/19 06:47 bupropion HCl Allergy TONGUE Verified 10/19/19 06:47 [From Wellbutrin] SWELLING/vomiting calcium Allergy Diarrhea Verified 10/19/19 06:47 ciprofloxacin [From Cipro] Allergy Vomiting,RA Verified 10/19/19 06:47 SH citalopram hydrobromide Allergy TONGUE Verified 10/19/19 06:47 [From Celexa] SWELLING clarithromycin [From Biaxin] Allergy Vomiting, Verified 10/19/19 06:47 SOB, tongue swelling duloxetine HCl Allergy SWELLING Verified 10/19/19 06:47 [From Cymbalta] OF TONGUE Fish Containing Products Allergy Vomiting,SW Verified 10/19/19 06:47 DAVID BRYANT lisinopril Allergy kidney and Verified 10/19/19 06:47 liver failure,dehydration naproxen Allergy Vomiting,TONGUE Verified 10/19/19 06:47 SWELLING,SHORTNESS OF BREATH paroxetine HCl [From Paxil] Allergy Vomiting,TONGUE Verified 10/19/19 06:47 SWELLING, nausea Penicillins Allergy Anaphylaxis Verified 10/19/19 06:47 pregabalin [From Lyrica] Allergy TONGUE Verified 10/19/19 06:47 SWELLING ,RASH, vomiting Salicylates Allergy Anaphylaxis, Verified 10/19/19 06:47 vomting, tongue swelling, rash sertraline HCl [From Zoloft] Allergy SWELLING Verified 10/19/19 06:47 OF TONGUE shellfish derived [Shellfish] Allergy SWELLING Verified 10/19/19 06:47 OF TONGUE,,HIVES,vomiting sulfamethoxazole Allergy Rapid Verified 10/19/19 06:47 [From Bactrim] Heart Rate trimethoprim [From Bactrim] Allergy Rapid Verified 10/19/19 06:47 Heart Rate SEAFOOD Allergy SWELLING Uncoded 10/19/19 06:47 OF TONGUE,HIVES, vomiting Surgical - Exam Vital Signs Temp Pulse Resp BP Pulse Ox 98.9 F 93 16 133/73 95 10/19/19 06:42 10/19/19 06:42 10/19/19 06:42 10/19/19 06:42 10/19/19 06:42 Physical Examinations : -Constitutiona : Cooperative , not in acute distress . -HEENT : nech : supple , no Lymphadenopathy , normal thyroid size . : eyes : no ptosis , no icterus, no rosio tophobia . - neurologic : Cranial nerve II to XII intact , no focal neurological deffecit . -psychatric : alert , oriented X 3 , appropriate affect , intact judgment and insight . -Lymphatic : no Lymphadenopathy . - musculoskeltal : Cervical Spine motor stregnth in the deltoid and biceps, normal right side , normal Left side motor stregnth biceps and the wrist extensors normal right side ,normal left side . motor stregnth in the triceps muscle . normal Right side , normal Left side deep tendon reflexes normal at the biceps , normal at Brachioradialis , normal at triceps. cervical facet loading test: Positive Bilaterall Lumber spine moter stegnth lower extremities ,thigh and legs 5/5 Right side , 5/5 Left side Assessment and Plan Plan: Assessment and plan=1-cervical spondylosis with cervical facet arthropathy. 2-lumbar spondylosis with lumbar facet arthropathy. 3-myofascial pain syndrome. Patient. Today to have radiofrequency thermocoagulation of the right-sided medial branch cervical area C3 , C4 ,C5 Time with Patient: Less than 30
[2019-10-19] MEDS ORDERED: fentaNYL (PF) 50 MCG/ML 2 ML AMP ONE (06:56)
[2019-10-19] MEDS ORDERED: methylPREDNISolone ACETATE 40 MG/ML 1 ML VIAL ONE (06:56)
[2019-10-19] MEDS ORDERED: MIDAZOLAM 2 MG/2 ML VIAL ONE (06:56)
[2019-10-19] MEDS ORDERED: ROPIVACAINE 5MG/ML 20ML VIAL ONE (06:56)
--- NOTE | 2019-10-19 07:30 | P.PCN ---
Date of Procedure: 10/19/19 Procedure(s) Performed: PREOPERATIVE DIAGNOSIS: 1-Cervical spondylosis with Facet Arthropathy without myelopathy. 2-myofascial pain syndrome and cervical area and shoulder blade area. 3-lumbar spondylosis with lumbar facet arthropathy without myelopathy POSTOPERATIVE DIAGNOSIS: Same as preop diagnosis PROCEDURES: Radiofrequency thermocoagulation Right C3, C4, C5 medial branch with Fluroscopy [place](fluoroscopy was available in etiology department ) (to denervate the facet joint at Right C3- 4 , C4- 5 ) ANESTHESIA: Local with Ropivacaine 0.5 % , moderate sedation with fentanyl 100 micrograms and Versed 2 mg EBL: Minimal PROCEDURE INDICATION: The patient with neck pain secondary to cervical arthropathy who had more than 50% relief of her pain with previous diagnostic cervical medial branch block. PROCEDURE DESCRIPTION / TECHNIQUE: The patient was seen and identified in the preoperative area. Risks, benefits, complications, and alternatives were discussed with the patient, the patient agreed to proceed with the procedure and signed the consent. IV was started. Vital signs remained stable throughout the procedure. Patient was taken to the OR and time out was completed. The patient was placed in the prone position on the procedure table. A pillow was placed under the patients chest to increase the cervical interlaminar space. The cervical area was prepped and draped in the usual sterile fashion. Critical pause was taken. Vital signs were closely monitored during the procedure. Conscious sedation was used during the procedure to decrease patients anxiety. Using cross-table lateral fluoroscopy, the centroid of the trapezoid of Right C3, C4, C5, were identified, marked, and localized with 1% lidocaine. Subsequently, a 20 -tx radiofrequency cannula with a 10-mm active tip was advanced guided by fluoroscopy to the centroid of the trapezoid of Right C3, C4, C5, . Needle tip position was confirmed at the centroid of the trapezoids of Right C3, C4, C5, with anteroposterior fluoroscopy. Each site then underwent sensory testing at 50 Hz and 0 to 1 volt and motor testing at 2 Hz and 0 to 3 volt with local stimulation, but no radicular symptoms down the arm. Thereafterthe Right C3, C4, C5 sites underwent radiofrequency thermocoagulation at 80 degrees celsius for 90 seconds after injecting 0.5 ml of PF Ropivacaine 0.5 %. After thermocoagulation, 1 ml of the block solution containing Depo-Medrol 40 mg and 3 mL of preservative-free normal saline was injected at the Right C3, C4, C5, levels after negative aspiration of CSF and blood and with no paresthesias. Cannulas were retracted while injecting lidocaine 1% until the needle is out. Skin was cleansed and bandages were applied. COMPLICATIONS: No acute complications. DISPOSITION / PLANS: The patient was placed in a supine position and transferred to the recovery area in a stable condition for observation and was discharged from the recovery room after meeting discharge criteria. Home discharge instructions given to the patient by the staff. The patient was reexamined prior to discharge. The patient will schedule a follow up in the clinic in 2-4 weeks.
[2019-10-19] MEDS ORDERED: IV FLUID CONTINUATION 1,000 ML IV ONE (07:35)
[2019-10-19 07:40] VITALS: PULSE 90
[2019-10-19 07:51] VITALS: BP 114/74; RESP 18
--- NOTE | 2019-10-19 08:33 | FL ---
Fluoroscopy INDICATION: Pain FINDINGS: Fluoroscopy time: 16 seconds. Images obtained: 2. IMPRESSIONS: 1. Documentation of fluoroscopy.
== END 2019-10-19 08:05 | disposition home or self-care (01) ==
LOC: ORPAIN 06:07
PROVIDERS: ATTEND Specialist
DX: M47.812 Spondylosis without myelopathy or radiculopathy, cervical region (principal); M79.7 Fibromyalgia; M47.816 Spondylosis without myelopathy or radiculopathy, lumbar region; J45.909 Unspecified asthma, uncomplicated; J44.9 Chronic obstructive pulmonary disease, unspecified; E11.9 Type 2 diabetes mellitus without complications; K21.9 Gastro-esophageal reflux disease without esophagitis; E78.5 Hyperlipidemia, unspecified; I10 Essential (primary) hypertension; M19.90 Unspecified osteoarthritis, unspecified site; M06.9 Rheumatoid arthritis, unspecified; M51.9 Unspecified thoracic, thoracolumbar and lumbosacral intervertebral disc disorder; M35.00 Sjogren syndrome, unspecified; G25.81 Restless legs syndrome; K57.90 Diverticulosis of intestine, part unspecified, without perforation or abscess without bleeding; K58.9 Irritable bowel syndrome, unspecified; N32.81 Overactive bladder; L40.9 Psoriasis, unspecified; E04.1 Nontoxic single thyroid nodule; M72.2 Plantar fascial fibromatosis; H91.91 Unspecified hearing loss, right ear; Z78.0 Asymptomatic menopausal state; Z86.19 Personal history of other infectious and parasitic diseases; Z87.448 Personal history of other diseases of urinary system; Z87.19 Personal history of other diseases of the digestive system; Z86.79 Personal history of other diseases of the circulatory system; Z86.2 Personal history of diseases of the blood and blood-forming organs and certain disorders involving the immune mechanism; Z90.49 Acquired absence of other specified parts of digestive tract; Z98.890 Other specified postprocedural states; Z98.51 Tubal ligation status; Z86.69 Personal history of other diseases of the nervous system and sense organs; Z87.81 Personal history of (healed) traumatic fracture; Z87.898 Personal history of other specified conditions; Z87.891 Personal history of nicotine dependence; Z79.899 Other long term (current) drug therapy; Z79.891 Long term (current) use of opiate analgesic; Z79.51 Long term (current) use of inhaled steroids; Z88.8 Allergy status to other drugs, medicaments and biological substances; Z88.5 Allergy status to narcotic agent; Z91.030 Bee allergy status; Z91.09 Other allergy status, other than to drugs and biological substances; Z88.6 Allergy status to analgesic agent; Z88.1 Allergy status to other antibiotic agents; Z91.013 Allergy to seafood; Z88.0 Allergy status to penicillin; Z88.2 Allergy status to sulfonamides; Z80.0 Family history of malignant neoplasm of digestive organs; Z80.49 Family history of malignant neoplasm of other genital organs; Z80.8 Family history of malignant neoplasm of other organs or systems
CPT/HCPCS: 64633; 64634; J2250; J1030; J3010; J2795; 99152

== ENCOUNTER 2020-05-17 06:50 | Day surgery (SDC) | payer OTHER ==
[2020-05-15 14:38] VITALS: BMI 26.8
[~2020-05-17 06:50] MED LIST changes: +LIDOCAINE 1% (10MG/ML) FOR IV START INTRADERMA PRN
[2020-05-17 07:10] VITALS: RESP 16; TEMP 97.8
[2020-05-17 07:28] LABS: Glucose,Whole Blood 100 mg/dL (75-99)
[2020-05-17] MEDS ORDERED: fentaNYL (PF) 50 MCG/ML 2 ML AMP ONE (07:41)
[2020-05-17] MEDS ORDERED: PROPOFOL 10 MG/ML 20 ML VIAL IV ONE (07:41)
[2020-05-17] MEDS ORDERED: LIDOCAINE 1% INJ 10MG/ML (20 ML MDV) ONE (07:41)
[2020-05-17] MEDS ORDERED: MIDAZOLAM 2 MG/2 ML VIAL ONE (07:41)
--- NOTE | 2020-05-17 07:45 | P.GSHP ---
History of Present Illness H&P Date: 05/17/20 Chief Complaint: GERD This a 59-year-old female presents today for EGD. She's had issues with GERD. Past Medical History Past Medical History: Asthma, Chest Pain / Angina, COPD, Diabetes Mellitus, Fibromyalgia, GERD/Reflux, Hearing Disorder / Deafness, Hyperlipidemia, Hypertension, Liver Disease, Osteoarthritis (OA), Renal Disease, Rheumatoid Arthritis (RA), Skin Disorder, Thyroid Disorder Additional Past Medical History / Comment(s): HX of Hep. C, hx liver failure from Lisinopril, DDD, Sjogren's syndrome. States diet controlled diabetes, restless leg syndrome, irregular heartbeat - sinus tachycardia, diverticulitis, "touch of crohns", IBS, overactive bladder, psoriasis, thyroid nodules, hx anemia, bleeds easily, plantar faciitis, partially deaf right ear. History of Any Multi-Drug Resistant Organisms: None Reported Past Surgical History: Cholecystectomy, Hernia Repair, Orthopedic Surgery, Tubal Ligation Additional Past Surgical History / Comment(s): [facility], eye surgery, right little toe fracture, HIATAL HERNIA, Umbilical hernia X2; [facility] INJECTIONS, bilateral toenails removed, lipoma removed right shoulder, hemorrhoidectomy x 2. pain clinic procedures Past Anesthesia/Blood Transfusion Reactions: Motion Sickness Smoking Status: Former smoker - Past Family History Father Family Medical History: Cancer Additional Family Medical History / Comment(s): Colon cancer. Mother Family Medical History: Cancer Additional Family Medical History / Comment(s): Uterine, skin cancer. Medications and Allergies Home Medications Medication Instructions Recorded Confirmed Type Albuterol Inhaler (Mhu) [Ventolin 2 puff INHALATION DIRECTED PRN 02/15/14 05/17/20 History Inhaler] Sucralfate [Carafate] 1 gm PO BID PRN 02/15/14 05/17/20 History traMADol HCl [Ultram] 50 mg PO TID 02/15/14 05/17/20 History traZODone HCL [Desyrel] 100 mg PO HS 02/15/14 05/17/20 History Montelukast Sodium [Singulair] 10 mg PO HS 04/14/14 05/17/20 History Cyclobenzaprine [Flexeril] 10 mg PO HS 08/28/14 05/17/20 History Pilocarpine [Salagen] 5 mg PO QID 10/20/14 05/17/20 History Alendronate Sodium 70 mg PO PEACE 03/15/15 05/17/20 History Triamcinolone Acetonide 1 spray EA NOSTRIL BID PRN 04/08/17 05/17/20 History [Triamcinolone Acetonide 0.055MG Nasal] Albuterol Nebulized [Ventolin 2.5 mg INHALATION RT-QID 10/23/17 05/17/20 History Nebulized] rOPINIRole HCL [Requip] 1 mg PO HS 04/22/18 05/17/20 History EPINEPHrine [Epipen 2-Pipo] 0.3 mg IM ONCE PRN 05/05/18 05/17/20 History Gabapentin [Neurontin] 300 mg PO TID 05/05/18 05/17/20 History Digoxin [Lanoxin] 125 mcg PO DAILY 09/28/18 05/17/20 History Dicyclomine [Bentyl] 10 mg PO TID PRN 10/18/18 05/17/20 History Budesonide [Pulmicort Flexhaler] 2 puff INHALATION BID 09/08/19 05/17/20 History Verapamil HCl [Verapamil ER] 120 mg PO HS 09/08/19 05/17/20 History Allergies Allergy/AdvReac Type Severity Reaction Status Date / Time JOSE Inhibitors Allergy Severe kidney and Verified 05/15/20 14:29 liver failure, dehydration morphine Allergy Severe SWELLING,RASH,SWELLING Verified 05/15/20 14:29 OF TONGUE,ABDOMINAL PAIN venom-honey bee Allergy Severe SHORTNESS Verified 05/15/20 14:29 OF BREATH,VOMITING, rash, swelling adhesive Allergy skin peels Verified 05/15/20 14:29 off(plastic & bandaids), paper/cloth tape ok amitriptyline Allergy tongue Verified 05/15/20 14:29 swelling/rash aspirin Allergy Anaphylaxis,vomting, Verified 05/15/20 14:29 tongue swelling, SOB, rash atorvastatin calcium Allergy Anaphylaxis, Verified 05/15/20 14:29 [From Lipitor] vomting, rash bee pollen Allergy Anaphylaxis Verified 05/15/20 14:29 bupropion HCl Allergy TONGUE Verified 05/15/20 14:29 [From Wellbutrin] SWELLING/vomiting calcium Allergy Diarrhea Verified 05/15/20 14:29 ciprofloxacin [From Cipro] Allergy Vomiting,RA Verified 05/15/20 14:29 SH citalopram hydrobromide Allergy TONGUE Verified 05/15/20 14:29 [From Celexa] SWELLING clarithromycin [From Biaxin] Allergy Vomiting, Verified 05/15/20 14:29 SOB, tongue swelling duloxetine HCl Allergy SWELLING Verified 05/15/20 14:29 [From Cymbalta] OF TONGUE Fish Containing Products Allergy Vomiting,SW Verified 05/15/20 14:29 OPALINGDAVID S lisinopril Allergy kidney and Verified 05/15/20 14:29 liver failure,dehydration naproxen Allergy Vomiting,TONGUE Verified 05/15/20 14:29 SWELLING,SHORTNESS OF BREATH paroxetine HCl [From Paxil] Allergy Vomiting,TONGUE Verified 05/15/20 14:29 SWELLING, nausea Penicillins Allergy Anaphylaxis Verified 05/15/20 14:29 pregabalin [From Lyrica] Allergy TONGUE Verified 05/15/20 14:29 SWELLING ,RASH, vomiting Salicylates Allergy Anaphylaxis, Verified 05/15/20 14:29 vomting, tongue swelling, rash sertraline HCl [From Zoloft] Allergy SWELLING Verified 05/15/20 14:29 OF TONGUE shellfish derived [Shellfish] Allergy SWELLING Verified 05/15/20 14:29 OF TONGUE,,HIVES,vomiting sulfamethoxazole Allergy Rapid Verified 05/15/20 14:29 [From Bactrim] Heart Rate trimethoprim [From Bactrim] Allergy Rapid Verified 05/15/20 14:29 Heart Rate SEAFOOD Allergy SWELLING Uncoded 05/15/20 14:29 OF TONGUE,HIVES, vomiting Surgical - Exam Vital Signs Temp Pulse Resp BP Pulse Ox 97.8 F 64 16 122/77 95 05/17/20 07:07 05/17/20 07:07 05/17/20 07:07 05/17/20 07:07 05/17/20 07:07 - General well developed, well nourished, no distress - Eyes PERRL - ENT normal pinna - Neck no masses - Respiratory normal expansion - Cardiovascular Rhythm: regular - Abdomen Abdomen: soft, non tender Results - Labs Abnormal Lab Results - Last 24 Hours (Table) 05/17/20 Range/Units 07:16 POC Glucose (mg/dL) 100 H (75-99) mg/dL Assessment and Plan Assessment: GERD. We'll perform EGD.
--- NOTE | 2020-05-17 07:53 | P.OP ---
Date of Procedure: 05/17/20 Preoperative Diagnosis: GERD Postoperative Diagnosis: Antral gastritis Procedure(s) Performed: EGD Anesthesia: MAC Surgeon: Micha Brito Pathology: other (Antrum) Condition: stable Disposition: PACU Description of Procedure: The patient's placed on the endoscopy table in the lateral position. She rece ived IV sedation. The gastroscope placed oropharynx passed in the esophagus into the stomach. Scope was placed through the pylorus. The first and second portion of the duodenum appeared normal. Merrill was then brought back back the antrum and this appeared mildly inflamed. A biopsies performed. Scope was unretroflexed and remainder the stomach appeared normal. The GE junction was at 40 cm. The distal esophagus appeared normal. The proximal esophagus appeared normal. Scope was withdrawn for patient. There is no evidence of a hiatal hernia.
[2020-05-17 08:15] VITALS: BP 106/67; PULSE 81
== END 2020-05-17 08:38 | disposition home or self-care (01) ==
LOC: ORWHC2ENDO 06:50
PROVIDERS: ATTEND Surgery
DX: K21.9 Gastro-esophageal reflux disease without esophagitis (principal); K29.50 Unspecified chronic gastritis without bleeding; J44.9 Chronic obstructive pulmonary disease, unspecified; E11.9 Type 2 diabetes mellitus without complications; M79.7 Fibromyalgia; E78.5 Hyperlipidemia, unspecified; I10 Essential (primary) hypertension; M19.90 Unspecified osteoarthritis, unspecified site; E07.9 Disorder of thyroid, unspecified; M35.00 Sjogren syndrome, unspecified; G25.81 Restless legs syndrome; L40.9 Psoriasis, unspecified; D64.9 Anemia, unspecified; H91.91 Unspecified hearing loss, right ear; M06.9 Rheumatoid arthritis, unspecified; K58.9 Irritable bowel syndrome, unspecified; E86.0 Dehydration; Z90.49 Acquired absence of other specified parts of digestive tract; Z87.19 Personal history of other diseases of the digestive system; Z98.890 Other specified postprocedural states; Z87.891 Personal history of nicotine dependence; Z80.0 Family history of malignant neoplasm of digestive organs; Z80.8 Family history of malignant neoplasm of other organs or systems; Z79.899 Other long term (current) drug therapy; Z79.891 Long term (current) use of opiate analgesic; Z79.51 Long term (current) use of inhaled steroids; Z88.8 Allergy status to other drugs, medicaments and biological substances; Z88.5 Allergy status to narcotic agent; Z91.030 Bee allergy status; Z91.048 Other nonmedicinal substance allergy status; Z88.6 Allergy status to analgesic agent; Z88.1 Allergy status to other antibiotic agents; Z91.013 Allergy to seafood; Z88.0 Allergy status to penicillin; Z88.2 Allergy status to sulfonamides
CPT/HCPCS: 88305; 43239; J2250; J2001; J3010; J2704

== ENCOUNTER → 2021-02-25 | Outpatient (CLI) | payer OTHER ==
[2021-02-25 13:26] VITALS: BP 129/73; PULSE 105; RESP 18; TEMP 98.3
--- NOTE | 2021-02-25 13:53 | P.PN ---
Subjective Progress Note Date: 02/25/21 This is a follow-up visit for this 60 years old female with a history of neck pain she statescervical spondylosis with cervical facet arthropathy, and low back pain she is diagnosed with lumbar spondylosis with lumbar facet arthropathy, in September 2019 we helped and are free of the medial branch cervical area and that helped her neck pain significantly, she gets more than any percent improvement of her neck pain for more than one year, and currently 2018 and we have done RFA of the medial branch lumbar area, patient reported that she gets more than 90% improvement of her low back pain , and the pain relief lasted for more than 2 years, and she is having severe neck pain which is increased with any activity and interfere with the quality of life, and also she is having severe low back pain which is increased with any activity, she denies any motor or sensory deficit she denies any fever or night sweats Objective - Vital Signs Vital signs: Vital Signs Temp 98.3 F 02/25/21 13:19 Pulse 105 H 02/25/21 13:19 Resp 18 02/25/21 13:19 BP 129/73 02/25/21 13:19 Pulse Ox 94 L 02/25/21 13:19 - Exam Physical Examinations : -Constitutiona : Cooperative , not in acute distress . -HEENT : nech : supple , no Lymphadenopathy , normal thyroid size . : eyes : no ptosis , no icterus, no photophobia . - neurologic : Cranial nerve II to XII intact , no focal neurological deffecit . -psychatric : alert , oriented X 3 , appropriate affect , intact judgment and insight . -Lymphatic : no Lymphadenopathy . - musculoskeltal : Cervical Spine motor stregnth in the deltoid and biceps, normal right side , normal Left side motor stregnth biceps and the wrist extensors normal right side ,normal left side . motor stregnth in the triceps muscle . normal Right side , normal Left side deep tendon reflexes normal at the biceps , normal at Brachioradialis , normal at triceps. cervical facet loading test: Positive Bilaterally Spurling test= positive Right , positive left. Neck distraction test= positive Right , positive left. Maxwell sign= positive right, positive left . Lumber spine moter stegnth lower extremities ,thigh and legs 5/5 Right side , 5/5 Left side deep tendon reflexes : normal Knee Jerk , normal ankle Jerk lumber facet Loading Test =positive Right , positive Left Range of motion of the lumbar spine Flexion 30 degrees, extension 10 degrees strait leg raising test = positive at 60 degree Fabere test= positive Right , and positive LT . tenderness over the Sacroiliac joint on the Right , and Left sides Assessment and Plan Plan: Assessment and plan=1-cervical spondylosis with cervical facet arthropathy. 2-lumbar spondylosis with lumbar facet arthropathy. Patient had RFA medial branch block cervical area and early 2019, to get more than 90% improvement of her neck pain after the RFA And could benefit from repeat RFA medial branch cervical area at C3 , C4 , C5 bilaterally. After that he can do RFA of the medial branch lumbar area at the L3, L4, L5 bilaterally. - PQRS measures = - Patient's medications are documented in the chart. -Tobacco use is negative and counseling.Given. -Patient's has not received pneumococcal vaccine. -Advanced care planning discussed, patient not eligible. -Opiate contract not signed. -Pain positive and follow-up visit/procedure is scheduled. -Patient's blood pressure measured [129/73 ] , and documented in the record ,and patient will follow up with the primary care. -Patient's weight was measured and body mass index [ 28.7 ] above the normal limits and counseling was done. and patient instructed to follow-up with the primary care physician. -Patient was not identified as an unhealthy alcohol user Time with Patient: Less than 30
== END ==
LOC: PNWHC3 12:59
PROVIDERS: ATTEND Specialist
DX: M47.812 Spondylosis without myelopathy or radiculopathy, cervical region (principal); M47.816 Spondylosis without myelopathy or radiculopathy, lumbar region; Z88.0 Allergy status to penicillin; Z88.2 Allergy status to sulfonamides; Z88.5 Allergy status to narcotic agent; Z88.8 Allergy status to other drugs, medicaments and biological substances; Z91.048 Other nonmedicinal substance allergy status; Z91.030 Bee allergy status; Z91.013 Allergy to seafood; Z88.6 Allergy status to analgesic agent; Z87.891 Personal history of nicotine dependence
CPT/HCPCS: 99211

== ENCOUNTER 2021-04-05 06:27 | Day surgery (SDC) | payer OTHER ==
[2021-04-04 10:05] VITALS: BMI 28.3
[2021-04-05 06:42] VITALS: TEMP 97.8
[2021-04-05 06:49] LABS: Glucose,Whole Blood 87 mg/dL (75-99)
[2021-04-05] MEDS ORDERED: LACTATED RINGERS 1,000 ML IV ONE (06:56)
[2021-04-05] MEDS ORDERED: LIDOCAINE 1% (10MG/ML) FOR IV START INTRADERMA ONE (06:56)
[2021-04-05] MEDS ORDERED: MIDAZOLAM 2 MG/2 ML VIAL ONE (07:34)
[2021-04-05] MEDS ORDERED: ROPIVACAINE 5MG/ML 20ML VIAL ONE (07:34)
[2021-04-05] MEDS ORDERED: LIDOCAINE 1% INJ 10MG/ML (20 ML MDV) ONE (07:34)
[2021-04-05] MEDS ORDERED: fentaNYL (PF) 50 MCG/ML 2 ML AMP ONE (07:34)
--- NOTE | 2021-04-05 07:57 | P.PCN ---
Date of Procedure: 04/05/21 Description of Procedure: PREOPERATIVE DIAGNOSIS: 1-Cervical spondylosis with Facet Arthropathy without myelopathy. 2-myofascial pain syndrome and cervical area and shoulder blade area. 3-lumbar spondylosis with lumbar facet arthropathy without myelopathy POSTOPERATIVE DIAGNOSIS: Same as preop diagnosis PROCEDURES: Radiofrequency thermocoagulation Right C3, C4, C5 medial branch with Fluroscopy [place](fluoroscopy was available in etiology department ) (to denervate the facet joint at Right C3- 4 , C4- 5 ) ANESTHESIA: Local with Ropivacaine 0.5 % , moderate sedation with anesthesia team EBL: Minimal PROCEDURE INDICATION: The patient with neck pain secondary to cervical arthropathy who had more than 50% relief of her pain with previous diagnostic cervical medial branch block. PROCEDURE DESCRIPTION / TECHNIQUE: The patient was seen and identified in the preoperative area. Risks, benefits, complications, and alternatives were discussed with the patient, the patient agreed to proceed with the procedure and signed the consent. IV was started. Vital signs remained stable throughout the procedure. Patient was taken to the OR and time out was completed. The patient was placed in the prone position on the procedure table. A pillow was placed under the patients chest to increase the cervical interlaminar space. The cervical area was prepped and draped in the usual sterile fashion. Critical pause was taken. Vital signs were closely monitored during the procedure. Conscious sedation was used during the procedure to decrease patients anxiety. Using cross-table lateral fluoroscopy, the centroid of the trapezoid of Right C3, C4, C5, were identified, marked, and localized with 1% lidocaine. Subsequently, a 20 [id number] radiofrequency cannula with a 10-mm active tip was advanced guided by fluoroscopy to the centroid of the trapezoid of Right C3, C4, C5, . Needle tip position was confirmed at the centroid of the trapezoids of Right C3, C4, C5, with anteroposterior fluoroscopy. Each site then underwent sensory testing at 50 Hz and 0 to 1 volt and motor testing at 2 Hz and 0 to 3 volt with local stimulation, but no radicular symptoms down the arm. Thereaf terthe Right C3, C4, C5 sites underwent radiofrequency thermocoagulation at 80 degrees celsius for 90 seconds after injecting 0.5 ml of PF Ropivacaine 0.5 %. After thermocoagulation, 1 ml of the block solution contianing 3 mL of 0.5% bupivacaine was injected at the Right C3, C4, C5, levels after negative aspiration of CSF and blood and with no paresthesias. Cannulas were retracted while injecting lidocaine 1% until the needle is out. Skin was cleansed and bandages were applied. COMPLICATIONS: No acute complications. DISPOSITION / PLANS: The patient was placed in a supine position and trans ferred to the recovery area in a stable condition for observation and was discharged from the recovery room after meeting discharge criteria. Home discharge instructions given to the patient by the staff. The patient was reexamined prior to discharge. The patient will do the left side in 2-4 weeks.
[2021-04-05] MEDS ORDERED: IV FLUID CONTINUATION 1,000 ML IV ONE (08:02)
[2021-04-05 08:07] VITALS: RESP 16
--- NOTE | 2021-04-05 08:11 | FL ---
EXAMINATION TYPE: FL guided pain mgmt statistic DATE OF EXAM: 04/05/2021 CLINICAL HISTORY: Neck pain. TECHNIQUE: Fluoroscopy. COMPARISON: None. FINDINGS: Fluoroscopic guidance was provided during pain relief procedure performed by Dr. Perez . A total of seconds of fluoroscopic time was utilized during the procedure and two spot images are acquired. Images acquired shows needle localization at several levels in the cervical spine. IMPRESSION: As Above.
[2021-04-05 08:18] VITALS: BP 112/75; PULSE 83
== END 2021-04-05 08:31 | disposition home or self-care (01) ==
LOC: ORPAIN 06:27
PROVIDERS: ATTEND Anesthesiology
DX: M47.812 Spondylosis without myelopathy or radiculopathy, cervical region (principal); M47.816 Spondylosis without myelopathy or radiculopathy, lumbar region; M79.18 Myalgia, other site
CPT/HCPCS: 64633; 64634 ×2; J2250; J2001; J3010; J2795

== ENCOUNTER → 2021-05-15 | Outpatient (CLI) | payer OTHER ==
--- NOTE | 2021-05-15 08:06 | P.PN ---
Subjective Progress Note Date: 05/15/21 This is a follow-up visit for this 60 years old female ,with a history of sever neck pain ,she is diagnosed with cervical spondylosis with cervical facet arthropathy, and low back pain, she is diagnosed with lumbar spondylosis with lumbar facet arthropathy, recently we did RFA of the Right medial branch cervical area , last year we did RFA of the medial branch cervical area bilaterally provided her with pain relief for more than a year , currently she is having severe neck pain which is increased with any activity and interfere with the quality of life, and also she is having severe low back pain which is increased with any activity, she denies any motor or sensory deficit she denies any fever or night sweats Physical Examinations : -Constitutiona : Cooperative , not in acute distress . -HEENT : nech : supple , no Lymphadenopathy , normal thyroid size . : eyes : no ptosis , no icterus, no photophobia . - neurologic : Cranial nerve II to XII intact , no focal neurological deffecit . -psychatric : alert , oriented X 3 , appropriate affect , intact judgment and insight . -Lymphatic : no Lymphadenopathy . - musculoskeltal : Cervical Spine motor stregnth in the deltoid and biceps, normal right side , normal Left side motor stregnth biceps and the wrist extensors normal right side ,normal left side . motor stregnth in the triceps muscle . normal Right side , normal Left side deep tendon reflexes normal at the biceps , normal at Brachioradialis , normal at triceps. cervical facet loading test: Positive Bilaterally Spurling test= positive Right , positive left. Neck distraction test= positive Right , positive left. Maxwell sign= positive right, positive left . Total trigger point identified in the right side cervical paraspinal muscles on the right side shoulder blade area Lumber spine moter stegnth lower extremities ,thigh and legs 5/5 Right side , 5/5 Left side deep tendon reflexes : normal Knee Jerk , normal ankle Jerk lumber facet Loading Test =positive Right , positive Left Range of motion of the lumbar spine Flexion 30 degrees, extension 10 degrees strait leg raising test = positive at 60 degree Fabere test= positive Right , and positive LT . tenderness over the Sacroiliac joint on the Right , and Left sides Assessment and plan= 1-cervical spondylosis with cervical facet arthropathy. 2-lumbar spondylosis with lumbar facet arthropathy. 3-myofascial pain syndrome right side cervical paraspinal muscles and right shoulder blade area Patient had RFA medial branch block cervical area and early 2019, to get more than 90% improvement of her neck pain after the RFA And could benefit from repeat RFA medial branch cervical area at Left C3 , C4 , C5 . She could benefit from trigger point injections right side cervical paraspinal muscles on the right side shoulder blade area - PQRS measures = - Patient's medications are documented in the chart. -Tobacco use is negative and counseling.Given. -Patient's has not received pneumococcal vaccine. -Advanced care planning discussed, patient not eligible. -Opiate contract not signed. -Pain positive and follow-up visit/procedure is scheduled. -Patient's blood pressure measured [129/83 ] , and documented in the record ,and patient will follow up with the primary care. -Patient's weight was measured and body mass index [ 28. ] above the normal limits and counseling was done. and patient instructed to follow-up with the primary care physician. -Patient was not identified as an unhealthy alcohol user Objective - Vital Signs Vital signs: Intake & Output 05/14/21 05/15/21 05/15/21 18:59 06:59 18:59 Weight 76.328 kg
[2021-05-15 08:08] VITALS: BP 129/83; PULSE 97; RESP 18; TEMP 98.3
== END ==
LOC: PNWHC3 07:32
PROVIDERS: ATTEND Specialist
DX: M47.812 Spondylosis without myelopathy or radiculopathy, cervical region (principal); M47.816 Spondylosis without myelopathy or radiculopathy, lumbar region; M79.18 Myalgia, other site; Z88.5 Allergy status to narcotic agent; Z88.6 Allergy status to analgesic agent; Z88.8 Allergy status to other drugs, medicaments and biological substances; Z91.030 Bee allergy status; Z88.9 Allergy status to unspecified drugs, medicaments and biological substances; Z88.0 Allergy status to penicillin; Z88.1 Allergy status to other antibiotic agents; Z88.2 Allergy status to sulfonamides; Z91.013 Allergy to seafood; Z87.891 Personal history of nicotine dependence
CPT/HCPCS: 99211

== ENCOUNTER 2021-12-05 06:31 | Day surgery (SDC) | payer OTHER ==
[2021-12-04 10:18] VITALS: BMI 28.3
[2021-12-05 07:36] VITALS: RESP 16; TEMP 98
[2021-12-05 07:36] LABS: Glucose,Whole Blood 103 mg/dL (75-99)
[2021-12-05] MEDS ORDERED: LACTATED RINGERS 1,000 ML IV ONE (07:41)
[2021-12-05] MEDS ORDERED: LIDOCAINE 1% INJ 10MG/ML (20 ML MDV) ONE (07:47)
[2021-12-05] MEDS ORDERED: PROPOFOL 10 MG/ML 20 ML VIAL IV ONE (07:47)
--- NOTE | 2021-12-05 07:53 | P.GSHP ---
History of Present Illness H&P Date: 12/05/21 Chief Complaint: GERD This a 61-year-old female with history of GERD. She presents today for EGD. Past Medical History Past Medical History: Asthma, Chest Pain / Angina, COPD, Diabetes Mellitus, Fibromyalgia, GERD/Reflux, Hearing Disorder / Deafness, Hyperlipidemia, Hypertension, Liver Disease, Osteoarthritis (OA), Renal Disease, Rheumatoid Arthritis (RA), Skin Disorder, Thyroid Disorder Additional Past Medical History / Comment(s): HX of Hep. C, hx liver and kidney failure from Lisinopril, DDD, Sjogren's syndrome. States diet controlled diabetes, restless leg syndrome, irregular heartbeat - sinus tachycardia, diverticulitis, "touch of crohns", IBS, overactive bladder, psoriasis, thyroid nodules, hx anemia, bleeds easily, plantar faciitis, partially deaf right ear. History of Any Multi-Drug Resistant Organisms: None Reported Past Surgical History: Cholecystectomy, Hernia Repair, Orthopedic Surgery, Tubal Ligation Additional Past Surgical History / Comment(s): [facility], eye surgery, right little toe fracture, HIATAL HERNIA, Umbilical hernia X2; [facility], lipoma removed right shoulder, hemorrhoidectomy x 2 Past Anesthesia/Blood Transfusion Reactions: No Reported Reaction, Motion Sickness Past Psychological History: Anxiety, Depression Smoking Status: Former smoker Past Alcohol Use History: None Reported Additional Past Alcohol Use History / Comment(s): Quit smoking in 2012, smoked < 1PPD x 29 yrs. No ETOH since 2013. Past Drug Use History: Marijuana Additional Drug Use History / Comment(s): DAILY MARIJUANA .-INSTRUCTED TO REFRAIN FROM USE FOR AT LEAST 24 HOURS PRIOR TO PROCEDURE - Past Family History Father Family Medical History: Cancer Additional Family Medical History / Comment(s): Colon cancer. Mother Family Medical History: Cancer Additional Family Medical History / Comment(s): Uterine, skin cancer. Medications and Allergies Home Medications Medication Instructions Recorded Confirmed Type traMADol HCl [Ultram] 50 mg PO TID 02/15/14 12/04/21 History traZODone HCL [Desyrel] 150 mg PO HS 02/15/14 12/04/21 History Montelukast Sodium [Singulair] 10 mg PO HS 04/14/14 12/04/21 History Cyclobenzaprine [Flexeril] 10 mg PO HS 08/28/14 12/04/21 History Pilocarpine [Salagen] 5 mg PO QID 10/20/14 12/04/21 History Alendronate Sodium 70 mg PO PEACE 03/15/15 12/04/21 History rOPINIRole HCL [Requip] 2 mg PO HS 04/22/18 12/04/21 History EPINEPHrine [Epipen 2-Pipo] 0.3 mg IM ONCE PRN 05/05/18 12/04/21 History Gabapentin [Neurontin] 300 mg PO BID 05/05/18 12/04/21 History Digoxin [Lanoxin] 125 mcg PO HS 09/28/18 12/04/21 History Verapamil HCl [Verapamil ER] 120 mg PO HS 09/08/19 12/04/21 History Ipratropium [place]ock/Albuterol 0.5 mg INHALATION QID 09/14/20 12/04/21 History Mometasone Inhalr 220 Mcg/Puff 2 puff INHALATION BID 09/14/20 12/04/21 History [Asmanex] Albuterol Sulfate [Proair Hfa] 1 - 2 puff INHALATION Q6HR PRN 02/22/21 12/04/21 History Ibuprofen [Motrin] 800 mg PO BID 04/04/21 12/04/21 History Allergies Allergy/AdvReac Type Severity Reaction Status Date / Time JOSE Inhibitors Allergy Severe kidney and Verified 12/05/21 07:22 liver failure, dehydration morphine Allergy Severe SWELLING,RASH,SWELLING Verified 12/05/21 07:22 OF TONGUE,ABDOMINAL PAIN venom-honey bee Allergy Severe SHORTNESS Verified 12/05/21 07:22 OF BREATH,VOMITING, rash, swelling adhesive Allergy skin peels Verified 12/05/21 07:22 off(plastic & bandaids), paper/cloth tape ok amitriptyline Allergy tongue Verified 12/05/21 07:22 swelling/rash aspirin Allergy Anaphylaxis,vomting, Verified 12/05/21 07:22 tongue swelling, SOB, rash atorvastatin calcium Allergy Anaphylaxis, Verified 12/05/21 07:22 [From Lipitor] vomting, rash bee pollen Allergy Anaphylaxis Verified 12/05/21 07:22 bupropion HCl Allergy TONGUE Verified 12/05/21 07:22 [From Wellbutrin] SWELLING/vomiting calcium Allergy Diarrhea Verified 12/05/21 07:22 ciprofloxacin [From Cipro] Allergy Vomiting,RA Verified 12/05/21 07:22 SH citalopram hydrobromide Allergy TONGUE Verified 12/05/21 07:22 [From Celexa] SWELLING clarithromycin [From Biaxin] Allergy Vomiting, Verified 12/05/21 07:22 SOB, tongue swelling duloxetine HCl Allergy SWELLING Verified 12/05/21 07:22 [From Cymbalta] OF TONGUE Fish Containing Products Allergy Vomiting,SW Verified 12/05/21 07:22 ELLINGDAVID S lisinopril Allergy kidney and Verified 12/05/21 07:22 liver failure,dehydration naproxen Allergy Vomiting,TONGUE Verified 12/05/21 07:22 SWELLING,SHORTNESS OF BREATH paroxetine HCl [From Paxil] Allergy Vomiting,TONGUE Verified 12/05/21 07:22 SWELLING, nausea Penicillins Allergy Anaphylaxis Verified 12/05/21 07:22 pregabalin [From Lyrica] Allergy TONGUE Verified 12/05/21 07:22 SWELLING ,RASH, vomiting Salicylates Allergy Anaphylaxis, Verified 12/05/21 07:22 vomting, tongue swelling, rash sertraline HCl [From Zoloft] Allergy SWELLING Verified 12/05/21 07:22 OF TONGUE shellfish derived [Shellfish] Allergy SWELLING Verified 12/05/21 07:22 OF TONGUE,,HIVES,vomiting sulfamethoxazole Allergy Rapid Verified 12/05/21 07:22 [From Bactrim] Heart Rate trimethoprim [From Bactrim] Allergy Rapid Verified 12/05/21 07:22 Heart Rate BEE,WASP,YELLOW JACKET-ANY Allergy Severe Anaphylaxis Uncoded 12/05/21 07:22 STING SEAFOOD Allergy SWELLING Uncoded 12/05/21 07:22 OF TONGUE,HIVES, vomiting Surgical - Exam Vital Signs Temp Pulse Resp BP Pulse Ox 98.0 F 93 16 135/81 96 12/05/21 07:34 12/05/21 07:34 12/05/21 07:34 12/05/21 07:34 12/05/21 07:34 - General well developed, well nourished, no distress - Eyes PERRL - ENT normal pinna - Neck no masses - Respiratory normal expansion - Cardiovascular Rhythm: regular - Abdomen Abdomen: soft, non tender Results - Labs Abnormal Lab Results - Last 24 Hours (Table) 12/05/21 Range/Units 07:28 POC Glucose (mg/dL) 103 H (75-99) mg/dL Assessment and Plan Assessment: GERD. We'll perform EGD
--- NOTE | 2021-12-05 08:00 | P.OP ---
Date of Procedure: 12/05/21 Preoperative Diagnosis: GERD Postoperative Diagnosis: Antral gastritis Mild esophagitis Small sliding hiatal hernia Procedure(s) Performed: EGD Anesthesia: MAC Surgeon: Micha Brito Pathology: other (Antrum, esophagus) Condition: stable Disposition: PACU Description of Procedure: The patient's placed on the endoscopy table in the lateral position. She received IV sedation. The gastro-/oropharynx passed in the esophagus and stomach. Scope was placed through the pylorus. The first and second portion of the duodenum appeared normal. Scope was then brought back into the antrum. This minimal inflamed. A biopsies performed. Scope was then retroflexed and the remainder of the stomach appeared normal. The GE junction was examined. Patient had a small sliding hiatal hernia. The GE junction was at 39 cm. The distal esophagus appeared mildly inflamed. A biopsies performed. The proximal esophagus appeared normal. Scope withdrawn for patient.
[2021-12-05 08:23] VITALS: BP 136/89; PULSE 95
== END 2021-12-05 08:45 | disposition home or self-care (01) ==
LOC: ORWHC2ENDO 06:31
PROVIDERS: ATTEND Surgery
DX: K21.00 Gastro-esophageal reflux disease with esophagitis, without bleeding (principal); K29.50 Unspecified chronic gastritis without bleeding; K44.9 Diaphragmatic hernia without obstruction or gangrene; E11.9 Type 2 diabetes mellitus without complications; I10 Essential (primary) hypertension; J44.9 Chronic obstructive pulmonary disease, unspecified; M79.7 Fibromyalgia; E78.5 Hyperlipidemia, unspecified; K76.9 Liver disease, unspecified; M19.90 Unspecified osteoarthritis, unspecified site; M06.9 Rheumatoid arthritis, unspecified; M35.00 Sjogren syndrome, unspecified; G25.81 Restless legs syndrome; R00.0 Tachycardia, unspecified; N32.81 Overactive bladder; L40.9 Psoriasis, unspecified; E04.1 Nontoxic single thyroid nodule; M72.2 Plantar fascial fibromatosis; K58.9 Irritable bowel syndrome, unspecified; H91.91 Unspecified hearing loss, right ear; F41.9 Anxiety disorder, unspecified; F32.A Depression, unspecified; Z86.19 Personal history of other infectious and parasitic diseases; Z98.890 Other specified postprocedural states; Z90.49 Acquired absence of other specified parts of digestive tract; Z98.51 Tubal ligation status; Z87.891 Personal history of nicotine dependence; Z80.0 Family history of malignant neoplasm of digestive organs; Z80.49 Family history of malignant neoplasm of other genital organs; Z80.8 Family history of malignant neoplasm of other organs or systems; Z88.8 Allergy status to other drugs, medicaments and biological substances; Z88.6 Allergy status to analgesic agent; Z91.030 Bee allergy status; Z88.5 Allergy status to narcotic agent; Z91.09 Other allergy status, other than to drugs and biological substances; Z91.013 Allergy to seafood
CPT/HCPCS: 88305; 43239; J2001; J2704

== ENCOUNTER 2021-12-09 06:37 | Day surgery (SDC) | payer OTHER ==
[2021-12-04 10:35] VITALS: BMI 28.3
[~2021-12-09 06:37] MED LIST changes: +ACETAMINOPHEN TAB 500 MG TAB PO PRN; +DEXAMETHASONE SOD PHOSPHATE 4 MG/ML 1 ML VIAL IV ONE; +HEPARIN SODIUM,PORCINE/PF 5,000 UNIT/0.5 ML SYRINGE SQ PRN; -LIDOCAINE 1% (10MG/ML) FOR IV START INTRADERMA PRN; +ONDANSETRON 4 MG/2 ML VIAL IVP ONE; +VANCOMYCIN 1,250 MG in SODIUM CHLORIDE 0.9% 250 ML IVPB PRN; +fentaNYL (PF) 50 MCG/ML 2 ML AMP IV PRN
[2021-12-09] MEDS ORDERED: SCOPOLAMINE 1 MG/72 HR PATCH TRANSDERM ONE (07:54)
[2021-12-09 07:57] LABS: Glucose,Whole Blood 95 mg/dL (75-99)
[2021-12-09 08:05] LABS: HCT 43.3 % (34.0-46.0); HGB 14.1 gm/dL (11.4-16.0); MCH 29.9 pg (25.0-35.0); MCHC 32.5 g/dL (31.0-37.0); Mean Platelet Volume 7.4; Platelet Count 274 k/uL (150-450); RBC 4.71 m/uL (3.80-5.40); RDW 12.5 % (11.5-15.5); WBC 4.9 k/uL (3.8-10.6)
[2021-12-09] MEDS ORDERED: MIDAZOLAM 2 MG/2 ML VIAL IVP ONE (08:19)
--- NOTE | 2021-12-09 08:38 | P.ANPRN ---
Procedure Note - Anesthesia - Nerve Block Performed Bilateral Rectus Abdominis Single Time Out Performed: Yes Date of Procedure: 12/09/21 Procedure Start Time: Procedure Stop Time: Location of Patient: PreOp Indication: Requested by Surgeon Specifically requested for management of pain by DrAaron: Micha Brito Sedation Type: Sedate with meaningful contact maintained Preparation: Sterile Prep Position: Supine Needle Types: Pajunk Needle Gauge: 21 Ultrasound used to visualize needle placement: Yes Ultrasound used to observe medication spread: Yes Injectate: 0.5% Ropivacaine (see comment for volume) (15 ml +14 ml NS 0.9 % + 4 mg Dexamethasone per side) Blood Aspirated: No Pain Paresthesia on Injection Noted: No Resistance on Injection: Normal Image Stored and Saved: Yes Events: Uneventful and Well Tolerated
--- NOTE | 2021-12-09 08:58 | P.GSHP ---
History of Present Illness H&P Date: 12/09/21 Chief Complaint: Incarcerated incisional hernia This a 61-year-old female who's developed pain at a small incisional hernia site. Patient rents today for open repair. Past Medical History Past Medical History: Asthma, Chest Pain / Angina, COPD, Diabetes Mellitus, Fibromyalgia, GERD/Reflux, Hearing Disorder / Deafness, Hyperlipidemia, Hypertension, Liver Disease, Osteoarthritis (OA), Renal Disease, Rheumatoid Arthritis (RA), Skin Disorder, Thyroid Disorder Additional Past Medical History / Comment(s): HX of Hep. C, hx liver and kidney failure from Lisinopril, DDD, Sjogren's syndrome. States diet controlled diabetes, restless leg syndrome, irregular heartbeat - sinus tachycardia, diverticulitis, "touch of crohns", IBS, overactive bladder, psoriasis, thyroid nodules, hx anemia, bleeds easily, plantar faciitis, partially deaf right ear. History of Any Multi-Drug Resistant Organisms: None Reported Past Surgical History: Cholecystectomy, Hernia Repair, Orthopedic Surgery, Tubal Ligation Additional Past Surgical History / Comment(s): [facility], eye surgery, right little toe fracture, HIATAL HERNIA, Umbilical hernia X2; [facility] INJECTIONS, lipoma removed right shoulder, hemorrhoidectomy x 2 Past Anesthesia/Blood Transfusion Reactions: No Reported Reaction, Motion Sickness Past Psychological History: Anxiety, Depression Smoking Status: Former smoker Past Alcohol Use History: None Reported Additional Past Alcohol Use History / Comment(s): Quit smoking in 2012, smoked < 1PPD x 29 yrs. No ETOH since 2012. Past Drug Use History: Marijuana Additional Drug Use History / Comment(s): DAILY MARIJUANA .-INSTRUCTED TO REFRAIN FROM USE FOR AT LEAST 24 HOURS PRIOR TO PROCEDURE - Past Family History Father Family Medical History: Cancer Additional Family Medical History / Comment(s): Colon cancer. Mother Family Medical History: Cancer Additional Family Medical History / Comment(s): Uterine, skin cancer. Medications and Allergies Home Medications Medication Instructions Recorded Confirmed Type traMADol HCl [Ultram] 50 mg PO TID 02/15/14 12/09/21 History traZODone HCL [Desyrel] 150 mg PO HS 02/15/14 12/04/21 History Montelukast Sodium [Singulair] 10 mg PO HS 04/14/14 12/04/21 History Cyclobenzaprine [Flexeril] 10 mg PO HS 08/28/14 12/04/21 History Pilocarpine [Salagen] 5 mg PO QID 10/20/14 12/04/21 History Alendronate Sodium 70 mg PO PEACE 03/15/15 12/09/21 History rOPINIRole HCL [Requip] 2 mg PO HS 04/22/18 12/04/21 History EPINEPHrine [Epipen 2-Pipo] 0.3 mg IM ONCE PRN 05/05/18 12/09/21 History Gabapentin [Neurontin] 300 mg PO BID 05/05/18 12/04/21 History Digoxin [Lanoxin] 125 mcg PO HS 09/28/18 12/04/21 History Verapamil HCl [Verapamil ER] 120 mg PO HS 09/08/19 12/04/21 History Ipratropium [place]/Albuterol 0.5 mg INHALATION QID 09/14/20 12/09/21 History Mometasone Inhalr 220 Mcg/Puff 2 puff INHALATION BID 09/14/20 12/09/21 History [Asmanex] Albuterol Sulfate [Proair Hfa] 1 - 2 puff INHALATION Q6HR PRN 02/22/21 12/09/21 History Ibuprofen [Motrin] 800 mg PO BID 04/04/21 12/09/21 History Lansoprazole [Prevacid] 30 mg PO DAILY 12/09/21 12/09/21 History Allergies Allergy/AdvReac Type Severity Reaction Status Date / Time JOSE Inhibitors Allergy Severe kidney and Verified 12/09/21 07:05 liver failure, dehydration morphine Allergy Severe SWELLING,RASH,SWELLING Verified 12/09/21 07:05 OF TONGUE,ABDOMINAL PAIN venom-honey bee Allergy Severe SHORTNESS Verified 12/09/21 07:05 OF BREATH,VOMITING, rash, swelling adhesive Allergy skin peels Verified 12/09/21 07:05 off(plastic & bandaids), paper/cloth tape ok amitriptyline Allergy tongue Verified 12/09/21 07:05 swelling/rash aspirin Allergy Anaphylaxis,vomting, Verified 12/09/21 07:05 tongue swelling, SOB, rash atorvastatin calcium Allergy Anaphylaxis, Verified 12/09/21 07:05 [From Lipitor] vomting, rash bee pollen Allergy Anaphylaxis Verified 12/09/21 07:05 bupropion HCl Allergy TONGUE Verified 12/09/21 07:05 [From Wellbutrin] SWELLING/vomiting calcium Allergy Diarrhea Verified 12/09/21 07:05 ciprofloxacin [From Cipro] Allergy Vomiting,RA Verified 12/09/21 07:05 SH citalopram hydrobromide Allergy TONGUE Verified 12/09/21 07:05 [From Celexa] SWELLING clarithromycin [From Biaxin] Allergy Vomiting, Verified 12/09/21 07:05 SOB, tongue swelling duloxetine HCl Allergy SWELLING Verified 12/09/21 07:05 [From Cymbalta] OF TONGUE Fish Containing Products Allergy Vomiting,SW Verified 12/09/21 07:05 ELLINGDAVID S lisinopril Allergy kidney and Verified 12/09/21 07:05 liver failure,dehydration naproxen Allergy Vomiting,TONGUE Verified 12/09/21 07:05 SWELLING,SHORTNESS OF BREATH paroxetine HCl [From Paxil] Allergy Vomiting,TONGUE Verified 12/09/21 07:05 SWELLING, nausea Penicillins Allergy Anaphylaxis Verified 12/09/21 07:05 pregabalin [From Lyrica] Allergy TONGUE Verified 12/09/21 07:05 SWELLING ,RASH, vomiting Salicylates Allergy Anaphylaxis, Verified 12/09/21 07:05 vomting, tongue swelling, rash sertraline HCl [From Zoloft] Allergy SWELLING Verified 12/09/21 07:05 OF TONGUE shellfish derived [Shellfish] Allergy SWELLING Verified 12/09/21 07:05 OF TONGUE,,HIVES,vomiting sulfamethoxazole Allergy Rapid Verified 12/09/21 07:05 [From Bactrim] Heart Rate trimethoprim [From Bactrim] Allergy Rapid Verified 12/09/21 07:05 Heart Rate BEE,WASP,YELLOW JACKET-ANY Allergy Severe Anaphylaxis Uncoded 12/09/21 07:05 STING SEAFOOD Allergy SWELLING Uncoded 12/09/21 07:05 OF TONGUE,HIVES, vomiting Surgical - Exam - General well developed, well nourished, no distress - Eyes PERRL - ENT normal pinna - Neck no masses - Respiratory normal expansion - Cardiovascular Rhythm: regular - Abdomen 3 cm incisional hernia in right epigastric area. The hernia is incarcerated. Abdomen: soft, non tender Results - Labs 12/09/21 07:52 Assessment and Plan Assessment: Incisional hernia. We'll perform open repair.
[2021-12-09 09:00] LABS: African American GFR (CKD) >90 (>60 ml/min/1.73 sqM); Anion Gap 7 mmol/L; Blood Urea Nitrogen 16 mg/dL (7-17); Calcium 8.2 mg/dL (8.4-10.2); Carbon Dioxide 25 mmol/L (22-30); Chloride 106 mmol/L (98-107); Glucose 99 mg/dL (74-99); Non-African American GFR(CKD) >90 (>60 ml/min/1.73 sqM); Potassium 4.3 mmol/L (3.5-5.1); Sodium 138 mmol/L (137-145)
[2021-12-09] MEDS ORDERED: SUCCINYLCHOLINE CHLORIDE 100 MG/5 ML SYR IV ONE (09:10)
[2021-12-09] MEDS ORDERED: LIDOCAINE 1% INJ 10MG/ML (20 ML MDV) ONE (09:10)
[2021-12-09] MEDS ORDERED: BUPIVACAIN-EPI 0.25%-1:200,000 30 ML VIAL SQ ONE ×2 (09:10→09:40)
[2021-12-09] MEDS ORDERED: SODIUM CHLORIDE 0.9% (PF) 10 ML VIAL ONE (09:10)
[2021-12-09] MEDS ORDERED: ROCURONIUM 10 MG/ML (5 ML VIAL) IV ONE (09:10)
[2021-12-09] MEDS ORDERED: fentaNYL (PF) 50 MCG/ML 2 ML AMP ONE (09:10)
[2021-12-09] MEDS ORDERED: GLYCOPYRROLATE 0.2 MG/ML 2 ML VIAL ONE (09:10)
[2021-12-09] MEDS ORDERED: MIDAZOLAM 2 MG/2 ML VIAL ONE (09:10)
[2021-12-09] MEDS ORDERED: PROPOFOL 10 MG/ML 20 ML VIAL IV ONE (09:10)
[2021-12-09] MEDS ORDERED: NEOSTIGMINE 1 MG/ML 10 ML VIAL ONE (09:10)
[2021-12-09] MEDS ORDERED: ROPIVACAINE 5 MG/ML 30 ML VIAL ONE (09:10)
[2021-12-09] MEDS ORDERED: DEXAMETHASONE SOD PHOSPHATE 4 MG/ML 1 ML VIAL ONE (09:10)
--- NOTE | 2021-12-09 09:58 | P.OP ---
Date of Procedure: 12/09/21 Preoperative Diagnosis: Incisional hernia Postoperative Diagnosis: Incisional hernia Procedure(s) Performed: (Incisional hernia open repair Anesthesia: MARYBEL Surgeon: Micha Brito Estimated Blood Loss (ml): 5 Pathology: other (Incarcerated fat/hernia sac) Condition: stable Disposition: PACU Description of Procedure: The patient's placed the operative table in supine position. She received general endotracheal tube anesthesia. Her abdomen was prepped and draped usual fashion. The patient had a 3 cm mass in the right epigastric area. The skin was incised over the mass. Using blunt and sharp dissection with cautery the hernia sac was dissected free. The incarcerated fat was transected sent to pathology. The fascial defect measured approximately 1 cm diameter. This was closed with 0 Vicryl suture. The skin was closed interrupted 3-0 Monocryl suture. Dermabond was applied. Patient tolerated the will was sent to recovery room in stable condition.
[2021-12-09 10:09] VITALS: TEMP 97
[2021-12-09 10:44] VITALS: RESP 17
[2021-12-09 10:46] VITALS: BP 146/88; PULSE 83
== END 2021-12-09 11:15 | disposition home or self-care (01) ==
LOC: OR 06:37
PROVIDERS: ATTEND Surgery
DX: K43.2 Incisional hernia without obstruction or gangrene (principal); J44.9 Chronic obstructive pulmonary disease, unspecified; E11.9 Type 2 diabetes mellitus without complications; M79.7 Fibromyalgia; K21.9 Gastro-esophageal reflux disease without esophagitis; I10 Essential (primary) hypertension; M19.90 Unspecified osteoarthritis, unspecified site; E07.9 Disorder of thyroid, unspecified; Z87.891 Personal history of nicotine dependence; I25.10 Atherosclerotic heart disease of native coronary artery without angina pectoris; E78.5 Hyperlipidemia, unspecified; M06.9 Rheumatoid arthritis, unspecified; K75.9 Inflammatory liver disease, unspecified; Z79.899 Other long term (current) drug therapy
CPT/HCPCS: 49560; 64999; 80048; 85027; 88302; J2250; J3370; J1100; J2710; J2405; J2001; J3010; J2795; J0330; J2704; J1644

== ENCOUNTER → 2021-12-25 | Outpatient (CLI) | payer OTHER ==
--- NOTE | 2021-12-25 10:02 | FL ---
ESOPHOGRAM. HISTORY: Dysphagia Esophagram was performed per the single contrast technique. Esophageal peristalsis and motility appear to be within normal limits. There is no evidence for filling defect, mass or diverticulum. No hiatal hernia seen. Postoperative changes of Rios fundoplication. IMPRESSION: No evidence for obstruction or leak in a patient who is status post Rios fundoplication .
== END | disposition home or self-care (01) ==
LOC: RADFLMAIN 09:13
PROVIDERS: ATTEND Surgery
DX: R13.10 Dysphagia, unspecified (principal)
CPT/HCPCS: 74220

== ENCOUNTER → 2022-04-09 | Outpatient (CLI) | payer OTHER ==
[2022-04-09 14:30] VITALS: BP 120/82; PULSE 93; RESP 18; TEMP 98
--- NOTE | 2022-04-09 14:47 | P.PAINPG ---
Objective - Vital Signs Vital signs: Vital Signs Temp 98.0 F 04/09/22 14:06 Pulse 93 04/09/22 14:06 Resp 18 04/09/22 14:06 BP 120/82 04/09/22 14:06 Pulse Ox 96 04/09/22 14:06 FiO2 Intake & Output 04/08/22 04/09/22 04/09/22 18:59 06:59 18:59 Weight 74.389 kg PQRS Measure Charge Sheet Mode of Arrival: Ambulatory, Cane Comment: A 61 yr old female with a history of severe and chronic low back pain sec ondary to lumbar degenerative disc diseases and lumbar spondylosis with facet arthropathy presents today for LBP. Hx of BL RFA in 2019 yielded 85% pain relief x 2 yrs. Pain level is currently at 8/10 in intensity, constant, throbbing, achy, burning sensation. Pain is provoked by PT in the past without relief. She can not do PT due to knee issues. Pain is alleviated with medications, topicals, injections, use of a cane for ambulation, home stretching regimen, repositioning and rest. Interventional pain procedures completed include BL RFA L3-L5 (2019) Patient is currently on Ibuprofen, Neurontin, Ultram, +cannabis Patient denies any side effects of the medication(s), denies excessive drowsiness or sleepiness, denies suicidal ideation and reports that the current pain medication is helping to control the pain and improve activities of daily living. Patient denies any motor or sensory deficits. Patient denies any fever or night sweats, denies any change in the bowel movements or urination. Physical Examination: -Constitutional: Cooperative. Not in acute distress . - Neurologic: Cranial nerve II to XII intact. No focal neurological deficits. - Psychatric: Alert & oriented x 3. Matching mood & appropriate affect. Judgment and insight intact. - Musculoskeletal: Cervical spine: Muscle bulk/ tone/ strength in the bilateral upper extremities normal Vertebral body tenderness to palpation over Spurling test positive Distraction test positive Facet loading test positive Thoracic spine Muscle bulk / tone/ strength in the bilateral paraspinal muscles normal Vertebral body tender to palpation over Facet loading test positive Lumbar spine: Motor bulk/ tone/ strength lower extremities , thigh and legs : 5/5 Deep tendon reflexes : Normal Knee Jerk. Normal Ankle Jerk . Vertebral body tenderness to palpation over Lumbar Facet Loading Test positive over BL L4-L5, L5-S1 w jump reflex Straight Leg Raise: positive at 30 degrees right side/ left side Gaenslen's Test positive Sacral spine : Severe tenderness over the Sacroiliac joint: right side / left side Range of motion: Flexion of the lumbar spine <60 degrees Range of motion: Extension of the lumbar spine <20 degrees Gaenslen's Test positive Jaya's Test positive Jayden test: positive right side / left side Thigh Thrust Test Sacral Thrust Test Assessment and plan: Chronic low back pain secondary to lumbar degenerative disc disease , lumbar spondylosis with facet arthropathy without myelopathy Recommendation of BL RFA L4-L5, L5-S1. Pt exhibited sufficient and satisfactory pain relief with the prior procedure. Risks, benefits of procedure discussed and pt verbalized understanding. Denies anticoagulant use or medical history of diabetes. All patient questions answered MAPS reviewed and it was appropriate. I have spent less than 30 minutes on patient care today. Dr Perez was available by phone for the evaluation of this patient. The time was used to review the medical records including relevant urine studies and Prescription history (MAPs), review of the available imaging, evaluation and examination of the patient, coordination of care with the medical staff and if applicable referring physicians, as well as creation of the medical record - Pain Location Lower Back Non-Pharmacological Interventions: Exercise, Inactivity, Physical Therapy Pharmacological Interventions: Block, Medication, PRN Medication PQRS Narrative: Smoking Status Former smoker Narcotic Agreement Date Signed 12/14/13 Blood Pressure 120/82 Pain Intensity [Lower Back] 8 Scale Used Numeric (1 - 10) Hx Alcohol Use (MH) No Home Medications: Ambulatory Orders traMADol HCl [Ultram] 50 mg PO TID 02/15/14 traZODone HCL [Desyrel] 150 mg PO HS 02/15/14 Montelukast Sodium [Singulair] 10 mg PO HS 04/14/14 Cyclobenzaprine [Flexeril] 10 mg PO HS 08/28/14 Pilocarpine [Salagen] 5 mg PO QID 10/20/14 Alendronate Sodium 70 mg PO PEACE 03/15/15 rOPINIRole HCL [Requip] 2 mg PO HS 04/22/18 EPINEPHrine [Epipen 2-Pipo] 0.3 mg IM ONCE PRN 05/05/18 Gabapentin [Neurontin] 300 mg PO BID 05/05/18 Digoxin [Lanoxin] 125 mcg PO HS 09/28/18 Verapamil HCl [Verapamil ER] 120 mg PO HS 09/08/19 Ipratropium [place]/Albuterol 0.5 mg INHALATION QID 09/14/20 Mometasone Inhalr 220 Mcg/Puff [Asmanex] 2 puff INHALATION BID 09/14/20 Albuterol Sulfate [Proair Hfa] 1 - 2 puff INHALATION Q6HR PRN 02/22/21 Ibuprofen [Motrin] 800 mg PO BID 04/04/21 Acetaminophen Tab [Tylenol] 650 mg PO Q6H #30 tab 12/09/21 Docusate [Colace] 100 mg PO BID #20 capsule 12/09/21 Ibuprofen [Motrin] 600 mg PO Q6HR PRN #40 tab 12/09/21 Lansoprazole [Prevacid] 30 mg PO DAILY 12/09/21 oxyCODONE HCL [OxyIR] 5 mg PO Q6H PRN 3 Days #10 tab 12/09/21 Controlled Substance Measures - Controlled Substance Measures Is patient prescribed a controlled substance at discharge?: No
== END ==
LOC: PNWHC3 13:39
PROVIDERS: ATTEND Specialist
DX: M51.36 Other intervertebral disc degeneration, lumbar region (principal); M47.816 Spondylosis without myelopathy or radiculopathy, lumbar region; G89.29 Other chronic pain; Z87.891 Personal history of nicotine dependence; Z88.5 Allergy status to narcotic agent; Z88.8 Allergy status to other drugs, medicaments and biological substances; Z91.030 Bee allergy status; Z91.048 Other nonmedicinal substance allergy status; Z88.6 Allergy status to analgesic agent; Z88.1 Allergy status to other antibiotic agents; Z88.0 Allergy status to penicillin; Z88.2 Allergy status to sulfonamides; Z91.038 Other insect allergy status
CPT/HCPCS: 99211

== ENCOUNTER → 2022-06-03 | Outpatient (CLI) | payer OTHER ==
--- NOTE | 2022-06-03 09:39 | US ---
EXAMINATION TYPE: US pelvic complete DATE OF EXAM: 06/03/2022 COMPARISON: CT CLINICAL HISTORY: R10.2 PELVIC PAIN. Pt states pelvic pain after lifting something heavy TECHNIQUE: Transabdominal (TA). Transabdominal sonographic images of the pelvis were acquired. Date of LMP: Pt states age late 40's EXAM MEASUREMENTS: Uterus: 5.6 x 2.3 x 3.3 cm Endometrial Stripe: 0.3 cm Right Ovary: 1.8 x 1.4 x 1.2 cm Left Ovary: 1.8 x 1.5 x 1.0 cm 1. Uterus: Anteverted wnl 2. Endometrium: wnl 3. Right Ovary: wnl 4. Left Ovary: wnl 5. Bilateral Adnexa: wnl 6. Posterior cul-de-sac: wnl No abnormality visualized within pelvis IMPRESSION: Atrophic uterus in keeping with postmenopausal state, ovaries are also small
== END | disposition home or self-care (01) ==
LOC: RADUSWWP 07:53
PROVIDERS: ATTEND Obstetrics & Gynecology
DX: R10.2 Pelvic and perineal pain (principal); N85.8 Other specified noninflammatory disorders of uterus
CPT/HCPCS: 76856

== ENCOUNTER 2022-07-10 06:44 | Day surgery (SDC) | payer OTHER ==
[~2022-07-10 06:44] MED LIST changes: -ACETAMINOPHEN TAB 500 MG TAB PO PRN; -DEXAMETHASONE SOD PHOSPHATE 4 MG/ML 1 ML VIAL IV ONE; -HEPARIN SODIUM,PORCINE/PF 5,000 UNIT/0.5 ML SYRINGE SQ PRN; -ONDANSETRON 4 MG/2 ML VIAL IVP ONE; -VANCOMYCIN 1,250 MG in SODIUM CHLORIDE 0.9% 250 ML IVPB PRN; -fentaNYL (PF) 50 MCG/ML 2 ML AMP IV PRN
[2022-07-10 07:15] VITALS: TEMP 97
[2022-07-10] MEDS ORDERED: LACTATED RINGERS 1,000 ML IV ONE (07:16)
[2022-07-10 07:24] LABS: Glucose,Whole Blood 90 mg/dL (70-110)
[2022-07-10] MEDS ORDERED: PROPOFOL 10 MG/ML 20 ML VIAL IV ONE (07:45)
--- NOTE | 2022-07-10 07:46 | P.GSHP ---
History of Present Illness H&P Date: 07/10/22 Chief Complaint: Screening colonoscopy, family history of colon cancer This a 7-year-old female who presents today for colonoscopy. Patient denies a significant GI complaints. Patient has a family history of colon cancer with her father having colon cancer. Past Medical History Past Medical History: Asthma, Chest Pain / Angina, COPD, Diabetes Mellitus, Fibromyalgia, GERD/Reflux, Hearing Disorder / Deafness, Hyperlipidemia, Hypert ension, Liver Disease, Osteoarthritis (OA), Renal Disease, Rheumatoid Arthritis (RA), Skin Disorder, Thyroid Disorder Additional Past Medical History / Comment(s): HX of Hep. C, hx liver and kidney failure from Lisinopril, DDD, Sjogren's syndrome. States diet controlled diabetes, restless leg syndrome, irregular heartbeat - sinus tachycardia, diverticulitis, "touch of crohns", IBS, overactive bladder, psoriasis, thyroid nodules, hx anemia, bleeds easily, plantar faciitis, partially deaf right ear. History of Any Multi-Drug Resistant Organisms: None Reported Past Surgical History: Cholecystectomy, Hernia Repair, Orthopedic Surgery, Tubal Ligation Additional Past Surgical History / Comment(s): [facility], eye surgery, right little toe fracture, HIATAL HERNIA, Umbilical hernia X2; [facility] IN[facility], lipoma removed right shoulder, hemorrhoidectomy x 2 Past Anesthesia/Blood Transfusion Reactions: No Reported Reaction, Motion Sickness Smoking Status: Former smoker - Past Family History Father Family Medical History: Cancer Additional Family Medical History / Comment(s): Colon cancer. Mother Family Medical History: Cancer Additional Family Medical History / Comment(s): Uterine, skin cancer. Medications and Allergies Home Medications Medication Instructions Recorded Confirmed Type traMADol HCl [Ultram] 50 mg PO TID 02/15/14 07/08/22 History traZODone HCL [Desyrel] 150 mg PO HS 02/15/14 07/08/22 History Montelukast Sodium [Singulair] 10 mg PO HS 04/14/14 07/08/22 History Cyclobenzaprine [Flexeril] 10 mg PO HS 08/28/14 07/08/22 History Pilocarpine [Salagen] 5 mg PO QID 10/20/14 07/08/22 History Alendronate Sodium 70 mg PO PEACE 03/15/15 07/08/22 History rOPINIRole HCL [Requip] 2 mg PO HS 04/22/18 07/08/22 History EPINEPHrine [Epipen 2-Pipo] 0.3 mg IM ONCE PRN 05/05/18 07/08/22 History Digoxin [Lanoxin] 125 mcg PO HS 09/28/18 07/08/22 History Verapamil HCl [Verapamil ER] 120 mg PO HS 09/08/19 07/08/22 History Ipratropium [place]/Albuterol 0.5 mg INHALATION QID 09/14/20 07/08/22 History Mometasone Inhalr 220 Mcg/Puff 2 puff INHALATION BID 09/14/20 07/08/22 History [Asmanex] Albuterol Sulfate [Proair Hfa] 1 - 2 puff INHALATION Q6HR PRN 02/22/21 07/08/22 History Ibuprofen [Motrin] 800 mg PO BID 04/04/21 07/08/22 History Lansoprazole [Prevacid] 30 mg PO DAILY 12/09/21 07/08/22 History Allergies Allergy/AdvReac Type Severity Reaction Status Date / Time JOSE Inhibitors Allergy Severe kidney and Verified 07/08/22 10:21 liver failure, dehydration morphine Allergy Severe SWELLING,RASH,SWELLING Verified 07/08/22 10:21 OF TONGUE,ABDOMINAL PAIN venom-honey bee Allergy Severe SHORTNESS Verified 07/08/22 10:21 OF BREATH,VOMITING, rash, swelling adhesive Allergy skin peels Verified 07/08/22 10:21 off(plastic & bandaids), paper/cloth tape ok amitriptyline Allergy tongue Verified 07/08/22 10:21 swelling/rash aspirin Allergy Anaphylaxis,vomting, Verified 07/08/22 10:21 tongue swelling, SOB, rash atorvastatin calcium Allergy Anaphylaxis, Verified 07/08/22 10:21 [From Lipitor] vomting, rash bee pollen Allergy Anaphylaxis Verified 07/08/22 10:21 bupropion HCl Allergy TONGUE Verified 07/08/22 10:21 [From Wellbutrin] SWELLING/vomiting calcium Allergy Diarrhea Verified 07/08/22 10:21 ciprofloxacin [From Cipro] Allergy Vomiting,RA Verified 07/08/22 10:21 SH citalopram hydrobromide Allergy TONGUE Verified 07/08/22 10:21 [From Celexa] SWELLING clarithromycin [From Biaxin] Allergy Vomiting, Verified 07/08/22 10:21 SOB, tongue swelling duloxetine HCl Allergy SWELLING Verified 07/08/22 10:21 [From Cymbalta] OF TONGUE Fish Containing Products Allergy Vomiting,SW Verified 07/08/22 10:21 DAVID BRYANT S lisinopril Allergy kidney and Verified 07/08/22 10:21 liver failure,dehydration naproxen Allergy Vomiting,TONGUE Verified 07/08/22 10:21 SWELLING,SHORTNESS OF BREATH paroxetine HCl [From Paxil] Allergy Vomiting,TONGUE Verified 07/08/22 10:21 SWELLING, nausea Penicillins Allergy Anaphylaxis Verified 07/08/22 10:21 pregabalin [From Lyrica] Allergy TONGUE Verified 07/08/22 10:21 SWELLING ,RASH, vomiting Salicylates Allergy Anaphylaxis, Verified 07/08/22 10:21 vomting, tongue swelling, rash sertraline HCl [From Zoloft] Allergy SWELLING Verified 07/08/22 10:21 OF TONGUE shellfish derived [Shellfish] Allergy SWELLING Verified 07/08/22 10:21 OF TONGUE,,HIVES,vomiting sulfamethoxazole Allergy Rapid Verified 07/08/22 10:21 [From Bactrim] Heart Rate trimethoprim [From Bactrim] Allergy Rapid Verified 07/08/22 10:21 Heart Rate BEE,WASP,YELLOW JACKET-ANY Allergy Severe Anaphylaxis Uncoded 07/08/22 10:21 STING SEAFOOD Allergy SWELLING Uncoded 07/08/22 10:21 OF TONGUE,HIVES, vomiting Surgical - Exam Vital Signs Temp Pulse Resp BP Pulse Ox 97 F L 101 H 18 131/88 95 07/10/22 07:15 07/10/22 07:15 07/10/22 07:15 07/10/22 07:15 07/10/22 07:15 - General well developed, well nourished, no distress - Eyes PERRL - ENT normal pinna - Neck no masses - Respiratory normal expansion - Cardiovascular Rhythm: regular - Abdomen Abdomen: soft, non tender Assessment and Plan Assessment: Family history of colon cancer. We'll perform screening colonoscopy.
--- NOTE | 2022-07-10 07:59 | P.OP ---
Date of Procedure: 07/10/22 Preoperative Diagnosis: Screening colonoscopy Family history: Cancer Postoperative Diagnosis: Mild diverticulosis status post low anterior resection Procedure(s) Performed: Colonoscopy Anesthesia: MAC Surgeon: Micha Brito Pathology: none sent Condition: stable Disposition: PACU Description of Procedure: The patient's placed on the endoscopy table in the lateral position. She received IV sedation. Digital rectal exam was performed. This revealed no abnormalities. Flexible scope was then placed patient anus passed throughout the entire colon. The ileocecal valve was visualized. Cecum, ascending and transverse colon appeared normal. In the descending colon there was some mild diverticular changes. The scope was then brought back the patient appears colorectal anastomosis this was visualized was normal. Scope was then brought back the rectum this was normal. Scope withdrawn for patient.
[2022-07-10 08:02] VITALS: RESP 16
[2022-07-10 08:18] VITALS: BP 123/81; PULSE 80
== END 2022-07-10 08:41 | disposition home or self-care (01) ==
LOC: ORWHC2ENDO 06:44
PROVIDERS: ATTEND Surgery
DX: Z12.11 Encounter for screening for malignant neoplasm of colon (principal); K57.30 Diverticulosis of large intestine without perforation or abscess without bleeding; J44.9 Chronic obstructive pulmonary disease, unspecified; E11.9 Type 2 diabetes mellitus without complications; M79.7 Fibromyalgia; K21.9 Gastro-esophageal reflux disease without esophagitis; H91.90 Unspecified hearing loss, unspecified ear; E78.5 Hyperlipidemia, unspecified; I10 Essential (primary) hypertension; K76.9 Liver disease, unspecified; M19.90 Unspecified osteoarthritis, unspecified site; M06.9 Rheumatoid arthritis, unspecified; E07.9 Disorder of thyroid, unspecified; M35.00 Sjogren syndrome, unspecified; G25.81 Restless legs syndrome; R00.0 Tachycardia, unspecified; L40.9 Psoriasis, unspecified; Z80.0 Family history of malignant neoplasm of digestive organs; Z98.49 Cataract extraction status, unspecified eye; Z98.890 Other specified postprocedural states; Z98.51 Tubal ligation status; Z87.891 Personal history of nicotine dependence; Z79.899 Other long term (current) drug therapy; Z79.51 Long term (current) use of inhaled steroids; Z88.8 Allergy status to other drugs, medicaments and biological substances; Z88.5 Allergy status to narcotic agent; Z91.030 Bee allergy status; Z88.6 Allergy status to analgesic agent; T75.3XXD Motion sickness, subsequent encounter
CPT/HCPCS: J2704; G0121

== ENCOUNTER → 2022-11-13 | Outpatient (CLI) | payer OTHER ==
[2022-11-13 08:36] VITALS: BP 107/72; PULSE 77; RESP 18; TEMP 98.4
--- NOTE | 2022-11-13 12:57 | P.PAINPG ---
PQRS Measure Charge Sheet Comment: A 62 yr old female with a history of severe and chronic LBP secondary to lumbar DDD and spondylosis with facet arthropathy without myelopathy presents today for LBP. Pt states her last BL RFA of L3-L5 in 2019 provided 80% relief x 1 year s/p procedure. Pain level is provoked at 10 /10 in intensity, constant, localized in the lumbar spine, sharp in character w shooting towards the hips, buttocks, and BLEs. Pain is provoked by over activity. Pt states PT was years ago and provoked intractable pain so she was discharged. Pain is alleviated with medications (Ibu), THC edibles, use of a cane for ambulatory assistance, repositioning and rest. Interventional pain procedures completed include BL RFA L3-L5 (2019) Patient is currently on Ibu Patient denies any side effects of the medication(s), denies excessive drowsiness or sleepiness, denies suicidal ideation and reports that the current pain medication is helping to control the pain and improve activities of daily living. Patient denies any motor or sensory deficits. Patient denies any fever or night sweats, denies any change in the bowel movements or urination. Physical Examination: -Constitutional: Cooperative. Not in acute distress . - Neurologic: Cranial nerve II to XII intact. No focal neurological deficits. - Psychatric: Alert & oriented x 3. Matching mood & appropriate affect. Judgment and insight intact. - Musculoskeletal: Cervical spine: Muscle bulk/ tone/ strength in the bilateral upper extremities normal Vertebral body tenderness to palpation over Spurling test positive Distraction test positive Facet loading test positive TTP Thoracic spine Muscle bulk / tone/ strength in the bilateral paraspinal muscles normal Vertebral body tender to palpation over Facet loading test positive TTP Lumbar spine: Motor bulk/ tone/ strength lower extremities , thigh and legs : 5/5 Deep tendon reflexes : Normal Knee Jerk. Normal Ankle Jerk . Vertebral body tenderness to palpation over Lumbar Facet Loading Test positive TTP over BL L4-L5, L5-S1 facets Straight Leg Raise: positive at 30 degrees right side/ left side Gaenslen's Test positive Sacral spine : Severe tenderness over the Sacroiliac joint: right side / left side Range of motion: Flexion of the lumbar spine <60 degrees Range of motion: Extension of the lumbar spine <20 degrees Gaenslen's Test positive right side / left side Jayden test: positive right side / left side Thigh Thrust Test positive right side / left side Sacral Thrust Test positive right side / left side Assessment and plan: Chronic LBP secondary to lumbar DDD, spondylosis with facet arthropathy without myelopathy Recommendation of BL RFA L4-L5, L5-S1. Pt exhibited sufficient and substantial pain relief w prior RFA procedure, Risks, benefits of procedure discussed and pt verbalized understanding. May need additional testing if indicated. All questions answered. I have spent less than 30 minutes on patient care today. Dr Perez was available by phone for the evaluation of this patient. The time was used to review the medical records including relevant urine studies and Prescription history (MAPs), review of the available imaging, evaluation and examination of the patient, coordination of care with the medical staff and if applicable referring physicians, as well as creation of the medical record PQRS Narrative: Smoking Status Former smoker Narcotic Agreement Date Signed 12/14/13 Hx Alcohol Use (MH) No Home Medications: Ambulatory Orders traMADol HCl [Ultram] 50 mg PO TID 02/15/14 traZODone HCL [Desyrel] 150 mg PO HS 02/15/14 Montelukast Sodium [Singulair] 10 mg PO HS 04/14/14 Cyclobenzaprine [Flexeril] 10 mg PO HS 08/28/14 Pilocarpine [Salagen] 5 mg PO QID 10/20/14 Alendronate Sodium 70 mg PO PEACE 03/15/15 rOPINIRole HCL [Requip] 2 mg PO HS 04/22/18 EPINEPHrine [Epipen 2-Pipo] 0.3 mg IM ONCE PRN 05/05/18 Digoxin [Lanoxin] 125 mcg PO HS 09/28/18 Verapamil HCl [Verapamil ER] 120 mg PO HS 09/08/19 Ipratropium [place]/Albuterol 0.5 mg INHALATION QID 09/14/20 Mometasone Inhalr 220 Mcg/Puff [Asmanex] 2 puff INHALATION BID 09/14/20 Albuterol Sulfate [Proair Hfa] 1 - 2 puff INHALATION Q6HR PRN 02/22/21 Ibuprofen [Motrin] 800 mg PO BID 04/04/21 Lansoprazole [Prevacid] 30 mg PO DAILY 12/09/21 Controlled Substance Measures - Controlled Substance Measures Is patient prescribed a controlled substance at discharge?: No
== END ==
LOC: PNWHC3 08:03
PROVIDERS: ATTEND Specialist
DX: M51.36 Other intervertebral disc degeneration, lumbar region (principal); M47.816 Spondylosis without myelopathy or radiculopathy, lumbar region; G89.29 Other chronic pain; Z87.891 Personal history of nicotine dependence; Z88.8 Allergy status to other drugs, medicaments and biological substances; Z88.5 Allergy status to narcotic agent; Z91.030 Bee allergy status; Z91.048 Other nonmedicinal substance allergy status; Z88.6 Allergy status to analgesic agent; Z91.09 Other allergy status, other than to drugs and biological substances; Z88.1 Allergy status to other antibiotic agents; Z91.013 Allergy to seafood; Z88.0 Allergy status to penicillin; Z88.2 Allergy status to sulfonamides
CPT/HCPCS: 99211

== ENCOUNTER → 2022-11-21 | Outpatient (CLI) | payer OTHER ==
[2022-11-21 18:53] LABS: Basophils # (A) 0.07 X 10*3/uL (0.00-0.10); Basophils % (A) 1.1 %; Eosinophils # (A) 0.11 X 10*3/uL (0.04-0.35); Eosinophils % (A) 1.8 %; HCT 43.1 % (37.2-46.3); HGB 13.9 g/dL (12.0-15.0); Immature Grans, Automated 0.3 %; Lymphocytes % (A) 35.7 %; MCH 29.2 pg (27.0-32.0); MCHC 32.3 g/dL (32.0-37.0); MCV 90.5 fL (80.0-97.0); Mean Platelet Volume 10.5 fL (9.5-12.2); Monocytes # (A) 0.59 X 10*3/uL (0.20-1.00); Monocytes % (A) 9.6 %; NRBC Per 100 WBC 0 /100 WBCS (0.0-0.0); Neutrophils # (A) 3.17 X 10*3/uL (1.80-7.70); Neutrophils % (A) 51.5 %; Platelet Count 293 X 10*3/uL (140-440); RBC 4.76 X 10*6/uL (4.10-5.20); RDW 12.6 % (11.5-14.5); WBC 6.16 X 10*3/uL (4.50-10.00)
== END | disposition home or self-care (01) ==
LOC: LABWHC1 11:47
PROVIDERS: ATTEND Surgery
DX: Z01.812 Encounter for preprocedural laboratory examination (principal); K40.90 Unilateral inguinal hernia, without obstruction or gangrene, not specified as recurrent
CPT/HCPCS: 36415; 85025; 93005

== ENCOUNTER 2022-11-26 05:52 | Day surgery (SDC) | payer OTHER ==
[2022-11-25 10:24] VITALS: BMI 26.6
[~2022-11-26 05:52] MED LIST changes: +ACETAMINOPHEN TAB 500 MG TAB PO PRN; +DEXAMETHASONE SOD PHOSPHATE 4 MG/ML 1 ML VIAL IV ONE; +HEPARIN SODIUM,PORCINE/PF 5,000 UNIT/0.5 ML SYRINGE SQ PRN; +LIDOCAINE 1% (10MG/ML) FOR IV START INTRADERMA PRN; +ONDANSETRON 4 MG/2 ML VIAL IVP ONE
[2022-11-26 07:21] LABS: Glucose,Whole Blood 99 mg/dL (70-110)
[2022-11-26] MEDS ORDERED: MIDAZOLAM 2 MG/2 ML VIAL IV ONE (07:34)
[2022-11-26] MEDS ORDERED: SCOPOLAMINE 1 MG/72 HR PATCH TRANSDERM ONE (07:50)
[2022-11-26] MEDS ORDERED: HYDROCORTISONE SUCCINATE 100 MG/2 ML VIAL ONE (08:03)
[2022-11-26] MEDS ORDERED: fentaNYL (PF) 50 MCG/ML 2 ML AMP ONE (08:03)
[2022-11-26] MEDS ORDERED: MIDAZOLAM 2 MG/2 ML VIAL ONE (08:03)
[2022-11-26] MEDS ORDERED: SODIUM CHLORIDE 0.9% (PF) 10 ML VIAL ONE (08:03)
[2022-11-26] MEDS ORDERED: NEOSTIGMINE 1 MG/ML 10 ML VIAL ONE (08:03)
[2022-11-26] MEDS ORDERED: ROPIVACAINE 5 MG/ML 30 ML VIAL ONE (08:03)
[2022-11-26] MEDS ORDERED: LIDOCAINE 4% LTA KIT (4 ML) TOPICAL ONE (08:03)
[2022-11-26] MEDS ORDERED: DEXAMETHASONE SOD PHOSPHATE 4 MG/ML 1 ML VIAL ONE (08:03)
[2022-11-26] MEDS ORDERED: PROPOFOL 10 MG/ML 20 ML VIAL IV ONE (08:03)
[2022-11-26] MEDS ORDERED: LIDOCAINE 2% INJ 20 MG/ML (2 ML VIAL) ONE (08:03)
[2022-11-26] MEDS ORDERED: GLYCOPYRROLATE 0.2 MG/ML 2 ML VIAL ONE (08:03)
[2022-11-26] MEDS ORDERED: KETAMINE 10 MG/ML 20 ML VIAL ONE (08:03)
[2022-11-26] MEDS ORDERED: SUCCINYLCHOLINE CHLORIDE 200 MG/10 ML VIAL IV ONE (08:03)
[2022-11-26] MEDS ORDERED: BUPIVACAIN-EPI 0.25%-1:200,000 30 ML VIAL SQ ONE ×2 (08:27)
--- NOTE | 2022-11-26 08:59 | P.OP ---
Date of Procedure: 11/26/22 Preoperative Diagnosis: Left inguinal hernia Postoperative Diagnosis: Left inguinal hernia Procedure(s) Performed: Laparoscopic robotic system repair of left inguinal hernia Transversus abdominis plane block Anesthesia: MARYBEL Surgeon: Micha Brito Estimated Blood Loss (ml): 5 Pathology: none sent Condition: stable Disposition: PACU Description of Procedure: The patient's placed on the operating table in the supine position. The patient received general anesthesia. The patient's abdomen was prepped and draped in usual sterile fashion. The skin was anesthetized 1% local Xylocaine at the incision sites. Using an 11 blade a skin incision was made at the umbilicus. The fascia was grasped with a [place] and then the peritoneal cavity was entered with the Veress needle. Position of the Veress needle was confirmed with a positive drop test. After adequate insufflation a 5 mm trocar was placed into the peritoneal cavity. The Laparoscope was placed the peritoneal cavity. And a robotic 8 mm trocar was placed in the right lateral position and then another 8 mm robotic trochars placed in the left lateral position. The original 5 mm trocar was exchanged for a 12 mm trocar. A four-quadrant transversus abdominis plane block was then performed using 1% local Xylocaine. The patient was placed in reverse Trendelenburg and then the patient was docked to the robot. Next the peritoneum over top of the hernia was incised and then using blunt and sharp dissection and electrocautery the hernia sac was dissected free from the floor of the inguinal canal. The hernia sac was completely reduced into the peritoneal cavity. The round ligament was then coagulated and then cut. And then using the Pro blow moulding machine operator mesh the hernia was repaired. The peritoneum was then sutured with 20V lock suture. The patient was then undocked the robot. The needle was withdrawn from the peritoneal cavity. The umbilical trocar site was closed with 0 Ethibond suture. The skin was closed interrupted 3-0 Monocryl suture. Dermabond dressing was applied. Patient was sent to recovery in stable condition.
[2022-11-26] MEDS: fentaNYL (PF) 50 MCG/ML 2 ML AMP IV PRN ×2 (09:14→09:31)
[2022-11-26 09:23] VITALS: TEMP 97.2
[2022-11-26] MEDS: HYDROmorphone 0.5 MG/0.5 ML SYRINGE IVP ONE ×2 (09:51→10:08)
[2022-11-26 10:37] VITALS: RESP 18
[2022-11-26 10:51] VITALS: BP 124/75; PULSE 65
--- NOTE | 2022-11-27 16:29 | P.ANPRN ---
Procedure Note - Anesthesia - Nerve Block Performed Bilateral Erector Spinae Single Time Out Performed: Yes Date of Procedure: 11/26/22 Procedure Start Time: 07:34 Procedure Stop Time: 07:43 Location of Patient: PreOp Indication: Acute Post-Operative Pain, Requested by Surgeon Sedation Type: Sedate with meaningful contact maintained Preparation: Sterile Prep Position: Prone Needle Types: Pajunk Needle Gauge: 21 Ultrasound used to visualize needle placement: Yes Ultrasound used to observe medication spread: Yes Blood Aspirated: No Pain Paresthesia on Injection Noted: No Resistance on Injection: Normal Image Stored and Saved: Yes Events: Uneventful and Well Tolerated (ropi .5% 15cc plus dexamethasone 4mg plus ns 10cc given at L1 bilaterally)
== END 2022-11-26 11:17 | disposition home or self-care (01) ==
LOC: OR 05:52
PROVIDERS: ATTEND Surgery
DX: K40.90 Unilateral inguinal hernia, without obstruction or gangrene, not specified as recurrent (principal); G89.18 Other acute postprocedural pain; I10 Essential (primary) hypertension; E78.5 Hyperlipidemia, unspecified; J45.909 Unspecified asthma, uncomplicated; J44.9 Chronic obstructive pulmonary disease, unspecified; Z87.891 Personal history of nicotine dependence; F12.90 Cannabis use, unspecified, uncomplicated; G47.33 Obstructive sleep apnea (adult) (pediatric); N28.9 Disorder of kidney and ureter, unspecified; M79.7 Fibromyalgia; K21.9 Gastro-esophageal reflux disease without esophagitis; M19.90 Unspecified osteoarthritis, unspecified site; B18.2 Chronic viral hepatitis C; M35.00 Sjogren syndrome, unspecified; M06.9 Rheumatoid arthritis, unspecified; M81.0 Age-related osteoporosis without current pathological fracture; M85.80 Other specified disorders of bone density and structure, unspecified site; F41.9 Anxiety disorder, unspecified; F32.9 Major depressive disorder, single episode, unspecified; Z87.39 Personal history of other diseases of the musculoskeletal system and connective tissue; E07.9 Disorder of thyroid, unspecified; Z79.51 Long term (current) use of inhaled steroids; Z79.899 Other long term (current) drug therapy; Z90.49 Acquired absence of other specified parts of digestive tract; Z98.51 Tubal ligation status; Z98.890 Other specified postprocedural states; Z79.1 Long term (current) use of non-steroidal anti-inflammatories (NSAID); Z91.013 Allergy to seafood; Z91.048 Other nonmedicinal substance allergy status; Z91.030 Bee allergy status; Z88.0 Allergy status to penicillin; Z88.5 Allergy status to narcotic agent; Z88.6 Allergy status to analgesic agent; Z88.8 Allergy status to other drugs, medicaments and biological substances; Z88.1 Allergy status to other antibiotic agents
CPT/HCPCS: 49650; 64999; 76942; 86900; 86901; 86850; J2250; J0330; J1100; J2710; J1720; J0690; J2405; J3010; J2795; J2704; J1170; J1644; J2001

== ENCOUNTER 2022-12-18 06:03 | Day surgery (SDC) | payer OTHER ==
[2022-12-18] MEDS ORDERED: LIDOCAINE 1% (10MG/ML) FOR IV START INTRADERMA PRN (06:22)
[2022-12-18 06:43] LABS: Glucose,Whole Blood 93 mg/dL (70-110)
[2022-12-18] MEDS: LACTATED RINGERS 1,000 ML IV SCH ×2 (06:43→06:57)
[2022-12-18 06:53] VITALS: TEMP 98.5
[2022-12-18] MEDS ORDERED: ROPIVACAINE 5 MG/ML 20 ML AMPULE ONE (06:59)
[2022-12-18] MEDS ORDERED: fentaNYL (PF) 50 MCG/ML 2 ML AMP ONE (06:59)
[2022-12-18] MEDS ORDERED: MIDAZOLAM 2 MG/2 ML VIAL ONE (06:59)
[2022-12-18] MEDS ORDERED: methylPREDNISolone ACETATE 40 MG/ML 1 ML VIAL ONE (06:59)
--- NOTE | 2022-12-18 07:31 | P.PCN ---
Date of Procedure: 12/18/22 Procedure(s) Performed: PREOPERATIVE DIAGNOSIS: 1-Lumbar Spondylosis with Facet Arthropathy without myelopathy. 2- Lumber degenerative disc disease. POSTOPERATIVE DIAGNOSIS: 1- Lumbar Spondylosis with Facet Arthropathy without myelopathy. 2- Lumber degenerative disc disease. PROCEDURES : Bilateral Radiofrequency thermocoagulation, L3 , L4 , and L5 medial branch, with fluoroscopic guidance (fluoroscopy images available in the radiology department) ( to denervate the facet joint at bilateral L4-5 ,and L5-S1 levels ). ANESTHESIA: Moderate sedation with intravenous versed 3 mg and fentaneyl 50 mcg, and local infiltration with Ropivacaine 0.5 % . Sedation started at 07:03, sedation ended at 07:27 EBL: Minimal PROCEDURE INDICATION: The patient with low back pain secondary to lumbar facet arthropathy who had more than 50% relief of her pain with previous RFA lumbar medial branch more than a year ago, and she is here to have a repeat RFA of the medial branch lumbar area. PROCEDURE DESCRIPTION / TECHNIQUE: The patient was seen and identified in the preoperative area. Risks, benefits, complications, including but not limited to risk of infection ,bleeding , allergic reactions to the medications and no complete pain releife , and alternatives were discussed with the patient, the patient agreed to proceed with the procedure and signed the consent. IV was started. Vital signs remained stable throughout the procedure. Patient was taken to the OR and time out was completed. The patient was placed in the prone position on the procedure table. The lumber area was prepped and draped in the usual sterile fashion. . Vital signs were closely monitored during the procedure .IV sedation was used during the procedure to decrease patients anxiety. Using AP and then oblique fluoroscopy, the ``eye of the Riley dog corres ponding to the connection between the superior and transverse articular processes of right L3, L4, and L5 were identified, marked, and localized with 1% lidocaine. Subsequently, a 18 [id number] radiofrequency cannula with a 10- mm active tip was advanced guided by fluoroscopy to each of the``eyes of the Riley dog at right L3, L4, and L5. Each site then underwent sensory testing at 50 Hz and 0 to 1 volt and motor testing at 2.5 Hz and 0 to 3 volt with local stimulation, but no radicular symptoms down the legs. Thereafter each sites underwent radiofrequency thermocoagulation at 80 degrees celsius for 90 seconds after injecting 0.5 ml of PF Ropivacaine 1ml, then after the thermocoagulation done , 1 ml of the block solution containing Depo-Medrol 20 mg and 3 ml of Ropivacaine 0.5% was injected at the right L3 , L4 , and L5 , levels after negative aspiration of CSF and blood and with no paresthesias. Cannulas were retracted while injecting lidocaine 1% until the needle is out. The same procedure was repeated at the level of Left L3, L4, and L5 levels. At the end of the procedure, the skin was cleansed and bandages were applied. COMPLICATIONS: No acute complications. DISPOSITION / PLANS: The patient was placed in a supine position and transferred to the recovery area in a stable condition for observation and was discharged from the recovery room after meeting discharge criteria. Home discharge instructions given to the patient by the staff. The patient was reexamined prior to discharge. The patient will schedule a follow up in the clinic in 2-4 weeks.
[2022-12-18] MEDS ORDERED: IV FLUID CONTINUATION 1,000 ML IV ONE (07:36)
[2022-12-18 07:39] VITALS: RESP 16
[2022-12-18 07:55] VITALS: BP 116/75; PULSE 61
--- NOTE | 2022-12-18 08:07 | FL ---
Fluoroscopy History: Therapeutic intervention radio freq bilat lumbar. 13 sec fl time. DAP 0.98426. 6 PICS ON SYN
== END 2022-12-18 08:14 | disposition home or self-care (01) ==
LOC: ORPAIN 06:03
PROVIDERS: ATTEND Specialist
DX: M51.36 Other intervertebral disc degeneration, lumbar region (principal); M47.816 Spondylosis without myelopathy or radiculopathy, lumbar region
CPT/HCPCS: 64636 ×2; 99152; 99153; 64635; J2250; J1030; J3010; J2795

== ENCOUNTER → 2023-01-05 | Outpatient (CLI) | payer OTHER ==
[2023-01-05 12:19] VITALS: BP 127/84; PULSE 76; RESP 18; TEMP 98.1
--- NOTE | 2023-01-05 13:35 | P.PAINPG ---
PQRS Measure Charge Sheet Comment: A 62 yr old female with a history of severe and chronic neck pain secondary to cervical DDD and spondylosis with facet arthropathy without myelopathy presents today for evaluation s/p BL RFA L3-L5. Pt admits she experienced 60% pain relief s/p procedure. Patient also admits she underwent an RFA BL C4-C5, C5- C6 and AugSep 2020 where she experienced 80% pain relief 18 months s/p procedure. Pain level is provoked at 10 /10 in intensity, constant, localized in the cervical spine, achy/ sore in character w shooting towards the BUEs. Pain is provoked by rotation and over head reaching. Pain is alleviated with PT years ago, ice, Cannabis products, repositioning and rest. Interventional pain procedures completed include BL RFA L3-5, BL RFA C3-5. Patient is currently on Tramadol, Ibu Patient denies any side effects of the medication(s), denies excessive drowsiness or sleepiness, denies suicidal ideation and reports that the current pain medication is helping to control the pain and improve activities of daily living. Patient denies any motor or sensory deficits. Patient denies any fever or night sweats, denies any change in the bowel movements or urination. Physical Examination: -Constitutional: Cooperative. Not in acute distress . - Neurologic: Cranial nerve II to XII intact. No focal neurological deficits. - Psychatric: Alert & oriented x 3. Matching mood & appropriate affect. Judgment and insight intact. - Musculoskeletal: Cervical spine: Muscle bulk/ tone/ strength in the bilateral upper extremities normal Vertebral body tenderness to palpation over Spurling test positive Distraction test positive Facet loading test positive TTP BL C4-C5, C5-C6 facets Thoracic spine Muscle bulk / tone/ strength in the bilateral paraspinal muscles normal Vertebral body tender to palpation over Facet loading test positive TTP Lumbar spine: Motor bulk/ tone/ strength lower extremities , thigh and legs : 5/5 Deep tendon reflexes : Normal Knee Jerk. Normal Ankle Jerk . Vertebral body tenderness to palpation over Lumbar Facet Loading Test positive Straight Leg Raise: positive at 30 degrees right side/ left side Gaenslen's Test positive Sacral spine : Severe tenderness over the Sacroiliac joint: right side / left side Range of motion: Flexion of the lumbar spine <60 degrees Range of motion: Extension of the lumbar spine <20 degrees Gaenslen's Test positive right side / left side Jayden test: positive right side / left side Thigh Thrust Test positive right side / left side Sacral Thrust Test positive right side / left side Assessment and plan: Chronic neck pain secondary to cervical DDD, spondylosis with facet arthropathy without myelopathy Recommendation of BL RFA C4-C5, C5-C6. Pt exhibited sufficent and substantial pain relief w prior RFA procedure. Risks, benefits of procedure discussed and pt verbalized understanding. Admits to anticoagulant use or medical history of diabetes. Protocol for discontinuation/ continuation of medications hammad procedure discussed. Minimal anesthesia provided per pt preference consisting of Versed and Fentanyl. All questions answered. I have spent less than 30 minutes on patient care today. Dr Perez was available by phone for the evaluation of this patient. The time was used to review the medical records including relevant urine studies and Prescription history (MAPs), review of the available imaging, evaluation and examination of the patient, coordination of care with the medical staff and if applicable referring physicians, as well as creation of the medical record PQRS Narrative: Smoking Status Former smoker Narcotic Agreement Date Signed 12/14/13 Hx Alcohol Use (MH) No Home Medications: Ambulatory Orders traMADol HCl [Ultram] 50 mg PO TID 02/15/14 traZODone HCL [Desyrel] 150 mg PO HS 02/15/14 Montelukast Sodium [Singulair] 10 mg PO HS 04/14/14 Pilocarpine [Salagen] 5 mg PO QID 10/20/14 Alendronate Sodium 70 mg PO PEACE 03/15/15 rOPINIRole HCL [Requip] 2 mg PO HS 04/22/18 EPINEPHrine [Epipen 2-Pipo] 0.3 mg IM ONCE PRN 05/05/18 Digoxin [Lanoxin] 125 mcg PO HS 09/28/18 Verapamil HCl [Verapamil ER] 120 mg PO HS 09/08/19 Ipratropium [place]/Albuterol 0.5 mg INHALATION QID 09/14/20 Mometasone Inhalr 220 Mcg/Puff [Asmanex] 2 puff INHALATION BID 09/14/20 Lansoprazole [Prevacid] 30 mg PO QAM 12/09/21 Ibuprofen 800 mg PO BID 11/25/22 hydrOXYzine pamoate [hydrOXYzine PAMOATE] 25 mg PO BID 11/25/22 Acetaminophen Tab [Tylenol] 650 mg PO Q6H #30 tab 11/26/22 Docusate [Colace] 100 mg PO BID #20 capsule 11/26/22 oxyCODONE HCL [OxyIR] 5 mg PO Q6H PRN 3 Days #10 tab 11/26/22 Controlled Substance Measures - Controlled Substance Measures Is patient prescribed a controlled substance at discharge?: No
== END ==
LOC: PNWHC3 10:04
PROVIDERS: ATTEND Specialist
DX: M50.322 Other cervical disc degeneration at C5-C6 level (principal); M47.812 Spondylosis without myelopathy or radiculopathy, cervical region; G89.29 Other chronic pain; Z87.891 Personal history of nicotine dependence; Z88.6 Allergy status to analgesic agent; Z88.5 Allergy status to narcotic agent; Z91.030 Bee allergy status; Z88.1 Allergy status to other antibiotic agents; Z91.013 Allergy to seafood; Z88.8 Allergy status to other drugs, medicaments and biological substances
CPT/HCPCS: 99211

== ENCOUNTER 2023-02-06 06:00 | Day surgery (SDC) | payer OTHER ==
[2023-02-04 13:50] VITALS: BMI 27.1
[~2023-02-06 06:00] MED LIST changes: -ACETAMINOPHEN TAB 500 MG TAB PO PRN; -DEXAMETHASONE SOD PHOSPHATE 4 MG/ML 1 ML VIAL IV ONE; -HEPARIN SODIUM,PORCINE/PF 5,000 UNIT/0.5 ML SYRINGE SQ PRN; -ONDANSETRON 4 MG/2 ML VIAL IVP ONE
[2023-02-06 06:41] VITALS: TEMP 97.5
[2023-02-06 06:55] LABS: Glucose,Whole Blood 97 mg/dL (70-110)
[2023-02-06] MEDS ORDERED: fentaNYL (PF) 50 MCG/ML 2 ML AMP ONE (06:57)
[2023-02-06] MEDS ORDERED: MIDAZOLAM 2 MG/2 ML VIAL ONE (06:57)
--- NOTE | 2023-02-06 07:36 | P.PCN ---
Date of Procedure: 02/06/23 Procedure(s) Performed: PREOPERATIVE DIAGNOSIS: Cervical spondylosis with Facet Arthropathy without myelopathy. POSTOPERATIVE DIAGNOSIS: Cervical spondylosis with Facet Arthropathy without myelopathy. PROCEDURES: Radiofrequency thermocoagulation, bilateral C3, C4, C5 medial branch with Fluroscopy [place](fluoroscopy was available in Radiology department ) (to denervate the facet joint at bilateral C3- 4 , C4- 5 ) ANESTHESIA: Monitored anesthesia care as per anesthesia department . EBL: Minimal PROCEDURE INDICATION: The patient with neck pain secondary to cervical arthropathy who had more than 50% relief of her pain with previous diagnostic cervical medial branch block. PROCEDURE DESCRIPTION / TECHNIQUE: The patient was seen and identified in the preoperative area. Risks, benefits, complications, and alternatives were discussed with the patient, the patient agreed to proceed with the procedure and signed the consent. IV was started. Vital signs remained stable throughout the procedure. Patient was taken to the OR and time out was completed. The patient was placed in the prone position on the procedure table. A pillow was placed under the patients chest to increase the cervical interlaminar space. The cervical area was prepped and draped in the usual sterile fashion. Critical pause was taken. Vital signs were closely monitored during the procedure. Conscious sedation was used during the procedure to decrease patients anxiety. Using cross-table lateral fluoroscopy, the centroid of the trapezoid of right C3, C4, C5, were identified, marked, and localized with 1% lidocaine. Subsequently, a 20 [id number] radiofrequency cannula with a 10-mm active tip was advanced guided by fluoroscopy to the centroid of the trapezoid of right C3, C4, C5 . Needle tip position was confirmed at the centroid of the trapezoids of right C3, C4, C5 with anteroposterior fluoroscopy. Each site then underwent sensory testing at 50 Hz and 0 to 1 volt and motor testing at 2 Hz and 0 to 3 volt with local stimulation, but no radicular symptoms down the arm. Thereafter each sites underwent radiofrequency thermocoagulation at 80 degrees celsius for 90 seconds after injecting 0.5 ml of PF Ropivacaine 0.5 %. After thermocoagulation, 1 ml of the block solution containing Depo-Medrol 20 mg and 3 mL of preservative-free normal saline was injected at the right C3, C4, C5 levels after negative aspiration of CSF and blood and with no paresthesias. Cannulas were removed intact then the exact same seizure was done for the next side at C3, C4, C5 levels , after the procedure finished the needle is taken out. the Skin was cleansed and bandages were applied. COMPLICATIONS: No acute complications. DISPOSITION / PLANS: The patient was placed in a supine position and transferred to the recovery area in a stable condition for observation and was discharged from the recovery room after meeting discharge criteria. Home discharge instructions given to the patient by the staff. The patient was reexamined prior to discharge. The patient will schedule a follow up in the clinic in 2-4 weeks.
[2023-02-06] MEDS ORDERED: methylPREDNISolone ACETATE 40 MG/ML 1 ML VIAL ONE (07:37)
[2023-02-06] MEDS ORDERED: ROPIVACAINE 5 MG/ML 20 ML AMPULE ONE (07:37)
[2023-02-06] MEDS ORDERED: IV FLUID CONTINUATION 600 ML IV ONE (07:39)
[2023-02-06 07:44] VITALS: PULSE 66
[2023-02-06 07:58] VITALS: BP 121/77; RESP 20
--- NOTE | 2023-02-06 08:02 | FL ---
EXAMINATION TYPE: FL guided pain mgmt statistic DATE OF EXAM: 02/06/2023 FLUOROSCOPY Fluoroscopy time of 16 seconds was used during bilateral cervical facet radiofrequency ablation. 6 i mage/s document/s the procedure. DOSE AREA PRODUCT (DAP) UGY*M,MGY*CM: 0.18336
== END 2023-02-06 08:10 | disposition home or self-care (01) ==
LOC: ORPAIN 06:00
PROVIDERS: ATTEND Specialist
DX: M47.812 Spondylosis without myelopathy or radiculopathy, cervical region (principal); I10 Essential (primary) hypertension; J44.9 Chronic obstructive pulmonary disease, unspecified; E11.9 Type 2 diabetes mellitus without complications; E04.1 Nontoxic single thyroid nodule; M79.7 Fibromyalgia; G25.81 Restless legs syndrome; K21.9 Gastro-esophageal reflux disease without esophagitis; K75.9 Inflammatory liver disease, unspecified; Z79.1 Long term (current) use of non-steroidal anti-inflammatories (NSAID); Z98.890 Other specified postprocedural states; Z88.6 Allergy status to analgesic agent; Z88.5 Allergy status to narcotic agent; Z91.048 Other nonmedicinal substance allergy status; Z88.0 Allergy status to penicillin; Z88.1 Allergy status to other antibiotic agents; Z88.2 Allergy status to sulfonamides; Z79.51 Long term (current) use of inhaled steroids; Z79.899 Other long term (current) drug therapy
CPT/HCPCS: 64633; 64634 ×2; J2250; J1030; J3010; J2795

== ENCOUNTER → 2023-05-12 | Outpatient (CLI) | payer OTHER ==
[2023-05-13 02:22] LABS: HCT 40.9 % (37.2-46.3); HGB 13.5 d/dL (12.0-15.0); MCH 30.1 pg (27.0-32.0); MCV 91.1 FL (80.0-97.0); Mean Platelet Volume 10.5 FL (9.5-12.2); NRBC Per 100 WBC 0 X 10*3/uL (0.00-0.01); Platelet Count 301 X 10*3/uL (140-440); RBC 4.49 X 10*6/uL (4.10-5.20); RDW 12.8 % (11.5-14.5); WBC 8.13 X 10*3/uL (4.50-10.00)
[2023-05-13 03:49] LABS: Basophils # (A) 0.06 X 10*3/uL (0.00-0.10); Basophils % (A) 0.7 %; Eosinophils # (A) 0.12 X 10*3/uL (0.04-0.35); Eosinophils % (A) 1.5 %; Lymphocytes # (A) 2.33 X 10*3/uL (0.90-5.00); Lymphocytes % (A) 28.7 %; Monocytes # (A) 0.63 X 10*3/uL (0.20-1.00); Monocytes % (A) 7.7 %; Neutrophils # (A) 4.97 X 10*3/uL (1.80-7.70); Neutrophils % (A) 61.2 %
== END | disposition home or self-care (01) ==
LOC: LABPAT 16:12
PROVIDERS: ATTEND Surgery
DX: Z01.812 Encounter for preprocedural laboratory examination (principal)
CPT/HCPCS: 85025

== ENCOUNTER 2023-05-29 06:43 | Observation (INO) | payer OTHER ==
[2023-05-25 15:36] VITALS: BMI 28.1
[~2023-05-29 06:43] MED LIST changes: +DEXAMETHASONE SOD PHOSPHATE 4 MG/ML 1 ML VIAL IV ONE; +HEPARIN SODIUM,PORCINE/PF 5,000 UNIT/0.5 ML SYRINGE SQ PRN; -LACTATED RINGERS 1,000 ML IV SCH; +MIDAZOLAM 2 MG/2 ML VIAL IV PRN; +ONDANSETRON 4 MG/2 ML VIAL IVP ONE
[2023-05-29 07:58] LABS: Glucose,Whole Blood 89 mg/dL (70-110)
[2023-05-29] MEDS: LACTATED RINGERS 1,000 ML IV SCH ×2 (07:58→10:32)
[2023-05-29] MEDS ORDERED: BUPIVACAINE (PF) 0.25% 30 ML VIAL SQ ONE ×2 (08:23→08:54)
[2023-05-29] MEDS ORDERED: NEOSTIGMINE 1 MG/ML 10 ML VIAL ONE (08:26)
[2023-05-29] MEDS ORDERED: HYDROmorphone (PF) 1 MG/ML ONE (08:26)
[2023-05-29] MEDS ORDERED: KETAMINE HCL IN 0.9 % NACL 50 MG/5 ML SYRINGE ONE (08:26)
[2023-05-29] MEDS ORDERED: MIDAZOLAM 2 MG/2 ML VIAL ONE (08:26)
[2023-05-29] MEDS ORDERED: PROPOFOL 10 MG/ML 20 ML VIAL IV ONE (08:26)
[2023-05-29] MEDS ORDERED: fentaNYL (PF) 50 MCG/ML 2 ML AMP ONE (08:26)
[2023-05-29] MEDS ORDERED: LIDOCAINE 1% INJ 10MG/ML (20 ML MDV) ONE (08:26)
[2023-05-29] MEDS ORDERED: SUCCINYLCHOLINE CHLORIDE 200 MG/10 ML VIAL IV ONE (08:26)
[2023-05-29] MEDS ORDERED: ROCURONIUM 10 MG/ML (5 ML VIAL) IV ONE (08:26)
[2023-05-29] MEDS ORDERED: GLYCOPYRROLATE 0.2 MG/ML 2 ML VIAL ONE (08:26)
[2023-05-29] MEDS ORDERED: HYDROmorphone 0.5 MG/0.5 ML SYRINGE IVP PRN (09:48)
[2023-05-29] MEDS ORDERED: NALOXONE 0.4 MG/ML 1 ML VIAL IV PRN (09:48)
[2023-05-29] MEDS ORDERED: LACTATED RINGERS 1,000 ML IV ONE (09:48)
--- NOTE | 2023-05-29 09:48 | P.OP ---
Date of Procedure: 05/29/23 Preoperative Diagnosis: GERD Postoperative Diagnosis: Recurrent hiatal hernia Procedure(s) Performed: Laparoscopic repair of hiatal hernia with mesh Anesthesia: MARYBEL Surgeon: Micha Brito Estimated Blood Loss (ml): 75 Pathology: none sent Condition: stable Disposition: PACU Description of Procedure: The patient was placed on the operating table in the supine position. The patient received general anesthesia. And was placed in dorsal lithotomy position. The patient was prepped and draped in the usual sterile fashion. The skin incision sites were anesthetized with 1% local Xylocaine. The skin was incised in the left periumbilical area and then using a blade less 5 mm trocar under direct visualization panel cavity was entered. After adequate insufflation the laparoscope was then placed into the peritoneal cavity. Next a 5 mm trochars placed in the right epigastric position. Another 5 millimeter trocar the right lateral position. Another 5 millimeter trocar in the left lateral position a 5 mm trocar is placed in the left epigastric position. And then the initial 5 mm trocar was exchanged for a 10 mm trocar. A four-quadrant transverse abdominal wall was performed using 1% local Xylocaine. The left lateral lobe liver was retracted. The hernia was seen. The patient had a large liver. During retraction liver there was some bleeding from the retractor. This stopped spontaneously. The adhesions around the hiatal hernia were lysed using sharp dissection. The crural repair was then performed in a retrograde fashion using 2-0 Ethibond suture. After the crura was repaired a piece of [employer] a mesh was placed. This was secured with the distal right device. The abdomen. There is no bleeding seen. The patient had adhesions in the left lower quadrant. These were photographed. The trochars withdrawn. Skin was closed interrupted 3-0 Monocryl suture.
[2023-05-29] MEDS: HYDROmorphone 0.5 MG/0.5 ML SYRINGE IVP PRN ×5 (10:05→10:30)
[2023-05-29] MEDS: KETOROLAC 15 MG/ML 1 ML VIAL IVP SCH ×2 (10:25→17:01)
[2023-05-29] MEDS: ONDANSETRON 4 MG/2 ML VIAL IVP PRN ×3 (12:12→23:39)
[2023-05-29] MEDS: HYDROmorphone 1 MG/ML 1 ML SYRINGE IVP PRN ×3 (15:19→23:32)
[2023-05-29] MEDS: PILOCARPINE 5 MG TAB PO SCH ×2 (17:05→21:22)
[2023-05-29] MEDS: IPRATROPIUM-ALBUTEROL 3 ML NEB INHALATION SCH (21:09)
[2023-05-29] MEDS: VERAPAMIL SR 120 MG TABLET.ER PO SCH (21:21)
[2023-05-29] MEDS: MONTELUKAST 10 MG TAB PO SCH (21:22)
[2023-05-29] MEDS: PANTOPRAZOLE 40 MG TABLET PO SCH (21:23)
[2023-05-29] MEDS: traMADol 50 MG TAB PO SCH (21:24)
[2023-05-29] MEDS: traZODone HCL 100 MG TAB PO SCH (21:51)
[2023-05-30] MEDS: KETOROLAC 15 MG/ML 1 ML VIAL IVP SCH ×4 (01:20→18:26)
[2023-05-30] MEDS: SODIUM CHLORIDE 0.9% 1,000 ML IV SCH ×2 (03:00→13:20)
[2023-05-30] MEDS: ONDANSETRON 4 MG/2 ML VIAL IVP PRN ×3 (06:15→18:25)
[2023-05-30] MEDS: IPRATROPIUM-ALBUTEROL 3 ML NEB INHALATION SCH ×4 (08:11→20:09)
[2023-05-30] MEDS: FLUTICASONE 220 MCG INHALER INHALATION SCH ×2 (08:12→20:09)
[2023-05-30] MEDS: HYDROmorphone 1 MG/ML 1 ML SYRINGE IVP PRN ×3 (08:36→23:09)
[2023-05-30] MEDS: PANTOPRAZOLE 40 MG TABLET PO SCH ×2 (09:21→17:41)
[2023-05-30] MEDS: PILOCARPINE 5 MG TAB PO SCH ×4 (09:23→20:43)
[2023-05-30] MEDS: ENOXAPARIN 40 MG/0.4 ML SYRINGE SQ SCH (09:23)
[2023-05-30] MEDS: traMADol 50 MG TAB PO SCH ×3 (09:24→20:42)
[2023-05-30 13:44] LABS: ALT 176 U/L (4-34); African American GFR (CKD) >90 (>60 ml/min/1.73 sqM); Albumin 3.4 g/dL (3.5-5.0); Albumin/Globulin Ratio 1.4; Anion Gap 6 mmol/L; Blood Urea Nitrogen 10 mg/dL (7-17); Calcium 8.1 mg/dL (8.4-10.2); Carbon Dioxide 24 mmol/L (22-30); Chloride 106 mmol/L (98-107); Globulin 2.5 g/dL; Glucose 81 mg/dL (74-99); Non-African American GFR(CKD) >90 (>60 ml/min/1.73 sqM); Sodium 136 mmol/L (137-145); Total Bilirubin 0.7 mg/dL (0.2-1.3); Total Protein 5.9 g/dL (6.3-8.2)
[2023-05-30 13:56] LABS: AST 132 U/L (14-36); Alkaline Phosphatase 64 U/L (38-126); Potassium 4.1 mmol/L (3.5-5.1)
--- NOTE | 2023-05-30 14:02 | CONS ---
CONSULTATION REASON FOR CONSULTATION: Advice regarding COPD and multiple medical issues requested by Surgery. HISTORY OF PRESENT ILLNESS: This is a 62-year-old woman with a past medical history of multiple medical problems including asthma and COPD, underwent laparoscopic repair of hiatal hernia with mesh. There is no history of any fever, rigors, or chills. The patient complains of some pain. PAST MEDICAL HISTORY: Reviewed and include asthma and COPD. Rest of the chart is also reviewed. HOME MEDICATIONS: Reviewed and include Asmanex, dose and rest of medications reviewed. ALLERGIES: Multiple allergies including JOSE inhibitors. List reviewed. FAMILY HISTORY: History of uterine cancer. SOCIAL HISTORY: Previous history of smoking. REVIEW OF SYSTEMS: Fourteen-point review of systems is negative except as mentioned earlier. PHYSICAL EXAMINATION: VITAL SIGNS: Pulse is 83, blood pressure 137/81, respirations 17. HEENT: Conjunctivae normal. NECK: No jugular venous distention. CARDIOVASCULAR: S1, S2. RESPIRATIONS: Few scattered rhonchi. ABDOMEN: Soft. NERVOUS SYSTEM: No focal deficits. LABORATORY DATA: Reviewed. ASSESSMENT: 1. Status post laparoscopic repair of hiatal hernia with mesh. 2. Asthma and chronic obstructive pulmonary disease. 3. Hypertension. 4. Hyperlipidemia. 5. History of chronic liver disease. 6. History of rheumatoid arthritis. RECOMMENDATIONS: Recommend to continue current management. Continue symptomatic treatment. Otherwise, at this time, I would recommend to obtain some baseline labs. Resume home medication, bronchodilators, and suspect DVT prophylaxis. We will follow the patient closely with you. Further recommendations to follow. MMODL / MISSYN: [id number] /
[2023-05-30 14:21] LABS: Basophils % (A) 0 %; Eosinophils # (A) 0.1 k/uL (0-0.7); Eosinophils % (A) 1 %; HCT 39.5 % (34.0-46.0); HGB 12.6 gm/dL (11.4-16.0); Lymphocytes # (A) 1.9 k/uL (1.0-4.8); Lymphocytes % (A) 27 %; MCHC 31.8 g/dL (31.0-37.0); MCV 94.2 fL (80.0-100.0); Mean Platelet Volume 7.6; Monocytes # (A) 0.4 k/uL (0-1.0); Monocytes % (A) 6 %; Neutrophils # (A) 4.6 k/uL (1.3-7.7); Neutrophils % (A) 65 %; Platelet Count 220 k/uL (150-450); RDW 12.9 % (11.5-15.5)
--- NOTE | 2023-05-30 16:26 | P.PN ---
Progress Note - Text Progress Note Date: 05/30/23 POD #1 Laparoscopic Hiatal Hernia with Mesh Plan 1. CLD 2. Pain Control 3. OOB, IS, medical management 4. Medicine recs 5. Possible discharge tomorrow HPI: No acute events overnight General-NAD CVS-RRR Lungs-NLB Abdomen-soft, incisions C/D/I Ext- no edema
[2023-05-30] MEDS: traZODone HCL 100 MG TAB PO SCH (20:42)
[2023-05-30] MEDS: VERAPAMIL SR 120 MG TABLET.ER PO SCH (20:43)
[2023-05-30] MEDS: MONTELUKAST 10 MG TAB PO SCH (20:43)
[2023-05-31] MEDS: ONDANSETRON 4 MG/2 ML VIAL IVP PRN ×4 (00:18→17:30)
[2023-05-31] MEDS: KETOROLAC 15 MG/ML 1 ML VIAL IVP SCH ×2 (00:18→06:06)
[2023-05-31] MEDS: HYDROmorphone 1 MG/ML 1 ML SYRINGE IVP PRN ×4 (05:15→21:02)
[2023-05-31] MEDS: PANTOPRAZOLE 40 MG TABLET PO SCH ×2 (06:06→17:30)
[2023-05-31] MEDS: SODIUM CHLORIDE 0.9% 1,000 ML IV SCH ×2 (06:41→21:08)
[2023-05-31] MEDS: FLUTICASONE 220 MCG INHALER INHALATION SCH ×2 (08:02→18:21)
[2023-05-31] MEDS: IPRATROPIUM-ALBUTEROL 3 ML NEB INHALATION SCH ×4 (08:02→18:21)
[2023-05-31] MEDS: ENOXAPARIN 40 MG/0.4 ML SYRINGE SQ SCH (09:09)
[2023-05-31] MEDS: PILOCARPINE 5 MG TAB PO SCH ×4 (09:10→21:03)
[2023-05-31] MEDS: traMADol 50 MG TAB PO SCH ×3 (09:10→22:40)
--- NOTE | 2023-05-31 09:34 | P.PN ---
Progress Note - Text Progress Note Date: 05/31/23 Patient some complaints of nausea. She's had some limited oral intake. On exam vital signs appear stable. Abdomen soft. Status post laparoscopic hiatal hernia repair with mesh. Patient will continue receive supportive care. Despite discharged home tomorrow.
--- NOTE | 2023-05-31 12:59 | PN ---
PROGRESS NOTE DATE OF SERVICE: 05/31/2023 SUBJECTIVE: This is a 62-year-old woman, who was admitted after laparoscopic repair of the hiatal hernia. She is closely monitored. The patient complains of some pain. No chest pain or palpitation. OBJECTIVE: VITAL SIGNS: Pulse is 88, blood pressure 115/70, respirations 17. HEENT: Conjunctivae normal. NECK: No jugular venous distention. CARDIOVASCULAR: S1, S2. ABDOMEN: Soft, status post surgery. LEGS: No edema. NERVOUS SYSTEM: Nonfocal. LABS: AST and ALT are elevated. ASSESSMENT: 1. Status post laparoscopic repair of the hiatal hernia with mesh. 2. Asthma and chronic obstructive pulmonary disease. 3. Elevated AST and ALT. 4. Hypertension. 5. Hyperlipidemia. 6. History of chronic liver disease. 7. History of rheumatoid arthritis. RECOMMENDATIONS AND DISCUSSION: Recommend to continue current management. Continue symptomatic treatment. Otherwise, I would recommend repeat labs to ensure stability. Otherwise, closely follow with Surgery. DVT prophylaxis. Monitor liver functions closely. Further recommendations to follow. MMODL / IJN: [id number] /
[2023-05-31] MEDS: DOCUSATE 100 MG CAP PO SCH (21:03)
[2023-05-31] MEDS: traZODone HCL 100 MG TAB PO SCH (21:03)
[2023-05-31] MEDS: VERAPAMIL SR 120 MG TABLET.ER PO SCH (21:03)
[2023-05-31] MEDS: MONTELUKAST 10 MG TAB PO SCH (21:03)
[2023-06-01] MEDS: SODIUM CHLORIDE 0.9% 1,000 ML IV SCH ×2 (02:22→14:09)
[2023-06-01 03:04] VITALS: RESP 18
[2023-06-01] MEDS: ONDANSETRON 4 MG/2 ML VIAL IVP PRN ×2 (06:21→13:15)
[2023-06-01] MEDS: PANTOPRAZOLE 40 MG TABLET PO SCH (07:18)
[2023-06-01] MEDS: ENOXAPARIN 40 MG/0.4 ML SYRINGE SQ SCH (07:19)
[2023-06-01] MEDS: PILOCARPINE 5 MG TAB PO SCH ×2 (07:19→13:16)
[2023-06-01] MEDS: DOCUSATE 100 MG CAP PO SCH (07:19)
[2023-06-01] MEDS: IPRATROPIUM-ALBUTEROL 3 ML NEB INHALATION SCH ×3 (08:38→15:21)
[2023-06-01] MEDS: FLUTICASONE 220 MCG INHALER INHALATION SCH (08:38)
[2023-06-01] MEDS: traMADol 50 MG TAB PO SCH ×2 (09:05→17:00)
[2023-06-01] MEDS: HYDROmorphone 1 MG/ML 1 ML SYRINGE IVP PRN (09:20)
[2023-06-01 11:09] LABS: ALT 95 U/L (8-44); AST 33 U/L (13-35); Albumin 3.8 d/dL (3.8-4.9); Alkaline Phosphatase 66 U/L (41-126); BUN/Creat Ratio 12.67 Ratio (12.00-20.00); Blood Urea Nitrogen 7.6 mg/dL (9.0-27.0); Calcium 8.5 mg/dL (8.7-10.3); Carbon Dioxide 21.4 mmol/L (21.6-31.8); Chloride 102 mmol/L (96-109); Glucose 69 mg/dL (70-110); Potassium 4.1 mmol/L (3.5-5.5); Sodium 137 mmol/L (135-145); Total Bilirubin 0.4 mg/dL (0.3-1.2); Total Protein 5.8 d/dL (6.2-8.2)
[2023-06-01 11:21] LABS: HCT 37.1 % (37.2-46.3); HGB 12.1 d/dL (12.0-15.0); Lymphocytes % (A) 14.8 %; MCH 30.4 pg (27.0-32.0); MCHC 32.6 d/dL (32.0-37.0); MCV 93.2 FL (80.0-97.0); Mean Platelet Volume 10.8 FL (9.5-12.2); NRBC Per 100 WBC 0 X 10*3/uL (0.00-0.01); Neutrophils % (A) 78.1 %; Platelet Count 252 X 10*3/uL (140-440); RBC 3.98 X 10*6/uL (4.10-5.20); RDW 12.5 % (11.5-14.5); WBC 8.44 X 10*3/uL (4.50-10.00)
[2023-06-01 11:22] LABS: Basophils # (A) 0.03 X 10*3/uL (0.00-0.10); Basophils % (A) 0.4 %; Eosinophils # (A) 0.14 X 10*3/uL (0.04-0.35); Eosinophils % (A) 1.7 %; Lymphocytes # (A) 1.25 X 10*3/uL (0.90-5.00); Monocytes # (A) 0.39 X 10*3/uL (0.20-1.00); Monocytes % (A) 4.6 %
[2023-06-01] MEDS ORDERED: HYDROmorphone 0.5 MG/0.5 ML SYRINGE IVP PRN (11:32)
[2023-06-01 12:20] VITALS: BP 158/79; PULSE 90; TEMP 98.5
[2023-06-01] MEDS ORDERED: KETOROLAC 15 MG/ML 1 ML VIAL IVP SCH (12:30)
--- NOTE | 2023-06-01 13:11 | P.PN ---
Subjective Progress Note Date: 06/01/23 This is a 62-year-old female status post laparoscopic repair of hiatal hernia with mesh. Sitting up in bed, complaining of nosebleeds, currently on 2 L nasal cannula, maintaining O2 sats in the low 90s. Reports positive pain, positive nausea. Afebrile, T-max 99.1, normal WBC. Renal function stable. LFTs improving. Denies chest pain, palpitations. Denies lightheadedness, dizziness or focal deficits.. Objective - Vital Signs Vital signs: Vital Signs Temp 98.7 F 06/01/23 07:12 Pulse 82 06/01/23 11:06 Resp 18 06/01/23 07:12 BP 129/64 06/01/23 07:12 Pulse Ox 91 L 06/01/23 11:06 FiO2 Intake & Output 05/31/23 06/01/23 06/01/23 18:59 06:59 18:59 Intake Total 960 Balance 960 Intake: Intake, IV Titration 960 Amount Sodium Chloride 0.9% 1, 960 000 ml @ 80 mls/hr IV . [id number] [facility] Rx#:[id number] Other: # Voids 2 - Exam PHYSICAL EXAM: VITAL SIGNS: [As above] GENERAL: Alert and oriented 3, Sitting up in bed, no acute distress, conversing without shortness of breath HEENT: Normocephalic, Conjunctivae normal. eyes normal. NECK: Supple, No JVD. CARDIOVASCULAR: S1, S2 regular.. No murmur RESPIRATION: Unlabored, equal air entry, Breath sounds diminished in the bases. ABDOMEN: Soft, status post surgery, No guarding. +BS. LEGS: No edema. no swelling NERVOUS SYSTEM: Cranial N 2-12 grossly normal. No focal deficits. Strength and sensation grossly intact.. Skin: Warm and dry, no rash - Labs CBC & Chem 7: 06/01/23 07:01 06/01/23 07:01 Labs: Abnormal Lab Results - Last 24 Hours (Table) 06/01/23 06/01/23 Range/Units 07:01 07:01 RBC 3.98 L (4.10-5.20) X 10*6/uL Hct 37.1 L (37.2-46.3) % Carbon Dioxide 21.4 L (21.6-31.8) mmol/L Anion Gap 13.60 H (4.00-12.00) mmol/L BUN 7.6 L (9.0-27.0) mg/dL Glucose 69 L (70-110) mg/dL Calcium 8.5 L (8.7-10.3) mg/dL ALT 95 H (8-44) U/L Total Protein 5.8 L (6.2-8.2) d/dL Assessment and Plan Assessment: Status post laparoscopic repair of hiatal hernia with mesh Postoperative atelectasis, expected outcome History of Asthma and COPD, stable Elevated LFTs, improving, in a patient with history of chronic liver disease History of hepatitis C Sjogren's syndrome History of fibromyalgia, rheumatoid arthritis Diabetes mellitus, controlled Hypertension Hyperlipidemia Anxiety Depression Former Nicotine dependence Marijuana use Plan: Continue on current medication regime ,monitoring and symptomatic treatment. Aggressive pulmonary toileting with incentive spirometer ordered. Increase ambulation as tolerated as well as being up in chair for all meals. Pain management, DVT prophylaxis as per general surgery. Humidify oxygen.Discharge planning in progress as per primary, obtain O2 sat on room air after ambulation. Follow-up with PCP in 1 week. The impression and plan of care has been dictated as directed. : I performed a history and examination of this patient, discussed the same with the dictator. I agree with the dictator's note ,documented as a scribe. Any additional findings or plans will be noted.
--- NOTE | 2023-06-01 15:13 | P.DS ---
Providers Date of admission: 05/29/23 09:48 Expected date of discharge: 06/01/23 Attending physician: Micha Brito Consults: 05/29/23 09:48 Consult Physician Routine Consulting Provider: Beau Ngo Consult Reason/Comments: Shaq management Do you want consulting provider notified?: Yes Primary care physician: Beau Ngo MD Hospital Course: Discharge diagnosis 1. Recurrent hiatal hernia status post laparoscopic repair of hiatal hernia with mesh 2. Postoperative atelectasis Hospital course This is a 62-year-old female with history of recurrent hiatal hernia she is status post laparoscopic repair of hiatal hernia with mesh. Patient's pain is controlled. She is tolerating diet. She is having flatus. She has been up and ambulating. She is afebrile. She is requiring home O2. Oxygen saturation does drop to 87% on room air with ambulating. homeowner association manager arranging home O2. Patient is stable for discharge. Please refer to chart for any further details. Physician Associate Product Manager note has been reviewed by physician. Signing provider agrees with the documented findings, assessment, and plan of care. Patient Condition at Discharge: Stable Plan - Discharge Summary Discharge Rx Participant: Yes New Discharge Prescriptions: New Acetaminophen Tab [Tylenol] 650 mg PO Q6H #30 tab Docusate [Colace] 100 mg PO BID #20 capsule oxyCODONE HCL [OxyIR] 5 mg PO Q6H PRN 3 Days #10 tab PRN Reason: Pain Continue traMADol HCl [Ultram] 50 mg PO TID traZODone HCL [Desyrel] 100 mg PO HS Montelukast Sodium [Singulair] 10 mg PO HS Pilocarpine [Salagen] 5 mg PO QID Alendronate Sodium 70 mg PO PEACE rOPINIRole HCL [Requip] 2 mg PO HS EPINEPHrine [Epipen 2-Piop] 0.3 mg IM ONCE PRN PRN Reason: Anaphylaxis Verapamil HCl [Verapamil ER] 120 mg PO HS Mometasone Inhalr 220 Mcg/Puff [Asmanex] 2 puff INHALATION BID Ibuprofen 800 mg PO TID Pantoprazole [Protonix] 40 mg PO BID Hyoscyamine Sulfate [Levsin] 0.125 mg PO QID Ipratropium-Albuterol Nebulize [Duoneb 0.5 mg-3 mg/3 ml Soln] 3 ml INHALATION QID Discharge Medication List traMADol HCl [Ultram] 50 mg PO TID 02/15/14 [History] traZODone HCL [Desyrel] 100 mg PO HS 02/15/14 [History] Montelukast Sodium [Singulair] 10 mg PO HS 04/14/14 [History] Pilocarpine [Salagen] 5 mg PO QID 10/20/14 [History] Alendronate Sodium 70 mg PO PAECE 03/15/15 [History] rOPINIRole HCL [Requip] 2 mg PO HS 04/22/18 [History] EPINEPHrine [Epipen 2-Pipo] 0.3 mg IM ONCE PRN 05/05/18 [History] Verapamil HCl [Verapamil ER] 120 mg PO HS 09/08/19 [History] Mometasone Inhalr 220 Mcg/Puff [Asmanex] 2 puff INHALATION BID 09/14/20 [History] Ibuprofen 800 mg PO TID 11/25/22 [History] Hyoscyamine Sulfate [Levsin] 0.125 mg PO QID 05/25/23 [History] Ipratropium-Albuterol Nebulize [Duoneb 0.5 mg-3 mg/3 ml Soln] 3 ml INHALATION QID 05/25/23 [History] Pantoprazole [Protonix] 40 mg PO BID 05/25/23 [History] Acetaminophen Tab [Tylenol] 650 mg PO Q6H #30 tab 05/29/23 [Rx] Docusate [Colace] 100 mg PO BID #20 capsule 05/29/23 [Rx] oxyCODONE HCL [OxyIR] 5 mg PO Q6H PRN 3 Days #10 tab 05/29/23 [Rx] Follow up Appointment(s)/Referral(s): Micha Brito MD [STAFF PHYSICIAN] - 1 Week Activity/Diet/Wound Care/Special Instructions: No driving while taking OxyIR No lifting over 10 pounds Shower daily. No soaking or tub baths for 2 weeks Very light activity until you are reevaluated at your follow up appointment with your surgeon Stay on a full liquid diet for the next 2 weeks Discharge Disposition: HOME WITH HOME HEALTH SERVICES
== END 2023-06-01 17:33 | disposition home health service (06) ==
LOC: OR 06:43 → 5NMEDONC 09:48 → OR 11:55 → 5NMEDONC 11:55
PROVIDERS: ADMIT Surgery; ATTEND Surgery
DX: K44.9 Diaphragmatic hernia without obstruction or gangrene (principal); K21.9 Gastro-esophageal reflux disease without esophagitis; E11.9 Type 2 diabetes mellitus without complications; E78.5 Hyperlipidemia, unspecified; F32.A Depression, unspecified; F41.9 Anxiety disorder, unspecified; I10 Essential (primary) hypertension; M06.9 Rheumatoid arthritis, unspecified; M35.00 Sjogren syndrome, unspecified; M79.7 Fibromyalgia; Z87.891 Personal history of nicotine dependence; J95.89 Other postprocedural complications and disorders of respiratory system, not elsewhere classified; J98.11 Atelectasis; J44.9 Chronic obstructive pulmonary disease, unspecified
CPT/HCPCS: 43280; 96376 ×3; 96361 ×3; 96375; 96365; 96372 ×3; 94640 ×2; 94760 ×2; 80053 ×2; 85025 ×2; G0378 ×4; C1781; J2250; J0330; J1100; J2710; J0690; J2405 ×4; J2001; J1650 ×3; J3010; J1170 ×6; J1885 ×4; J2704; J1644; J0665

== ENCOUNTER → 2023-11-20 | Outpatient (CLI) | payer OTHER ==
--- NOTE | 2023-11-20 15:16 | XR ---
EXAMINATION TYPE: XR chest 2V DATE OF EXAM: 11/20/2023 2:09 PM CLINICAL INDICATION:Female, 63 years old with history of R06.02 SHORTNESS OF BREATH; PH[facility] COMPARISON: Chest radiographs from 03/14/2015 TECHNIQUE: XR chest 2V Frontal and lateral views of the chest. FINDINGS: Lungs/Pleura: There is flattening of the diaphragm with increased lucency of the lungs. No evidence o f pneumothorax, pleural effusion or focal consolidation. Pulmonary vascularity: Unremarkable. Heart/mediastinum: Cardiomediastinal silhouette is unremarkable. Musculoskeletal: No acute osseous pathology. IMPRESSION: 1. No acute cardiopulmonary disease process. 2. COPD changes.
== END | disposition home or self-care (01) ==
LOC: RADXRMAIN 13:56
PROVIDERS: ATTEND Internal Medicine Sleep Medicine
DX: J44.9 Chronic obstructive pulmonary disease, unspecified (principal)
CPT/HCPCS: 71046

== ENCOUNTER → 2024-01-25 | Outpatient (CLI) | payer OTHER ==
[2024-01-25 13:39] VITALS: BP 110/77; PULSE 94; RESP 16; TEMP 98.2
--- NOTE | 2024-01-25 14:44 | P.PAINPG ---
PQRS Measure Charge Sheet Comment: A 62 yr old female with a history of severe and chronic neck pain secondary to cervical DDD and spondylosis with facet arthropathy without myelopathy presents today for evaluation s/p BL RFA C3-C5. Pt admits she experienced 95 % pain relief x 10 mo s/p procedure in Jan 2023. Pain level is provoked at 8 /10 in intensity, constant, localized in the cervical spine, predominantly axial, achy/ sore in character w occasional shooting towards the BUEs. Pain is provoked by rotation and over head reaching. Pain is alleviated with PT years ago, ice, Cannabis products, repositioning and rest. Cervical disability score of 24. Interventional pain procedures completed include BL RFA L3-5, BL RFA C3-5 (Jan 2023) Patient is currently on Tramadol, Ibu, THC products Patient denies any side effects of the medication(s), denies excessive drowsiness or sleepiness, denies suicidal ideation and reports that the current pain medication is helping to control the pain and improve activities of daily living. Patient denies any motor or sensory deficits. Patient denies any fever or night sweats, denies any change in the bowel movements or urination. Physical Examination: -Constitutional: Cooperative. Not in acute distress . - Neurologic: Cranial nerve II to XII intact. No focal neurological deficits. - Psychatric: Alert & oriented x 3. Matching mood & appropriate affect. Judgment and insight intact. - Musculoskeletal: Cervical spine: Muscle bulk/ tone/ strength in the bilateral upper extremities normal Vertebral body tenderness to palpation over Spurling test positive Distraction test positive Facet loading test positive TTP BL C3-C4, C4-C5 facets Thoracic spine Muscle bulk / tone/ strength in the bilateral paraspinal muscles normal Vertebral body tender to palpation over Facet loading test positive TTP Lumbar spine: Motor bulk/ tone/ strength lower extremities , thigh and legs : 5/5 Deep tendon reflexes : Normal Knee Jerk. Normal Ankle Jerk . Vertebral body tenderness to palpation over Lumbar Facet Loading Test positive Straight Leg Raise: positive at 30 degrees right side/ left side Gaenslen's Test positive Sacral spine : Severe tenderness over the Sacroiliac joint: right side / left side Range of motion: Flexion of the lumbar spine <60 degrees Range of motion: Extension of the lumbar spine <20 degrees Gaenslen's Test positive right side / left side Jayden test: positive right side / left side Thigh Thrust Test positive right side / left side Sacral Thrust Test positive right side / left side Assessment and plan: Chronic neck pain secondary to cervical DDD, spondylosis with facet arthropathy without myelopathy Recommendation of BL RFA C3-C5. Pt exhibited sufficient and substantial pain relief w prior RFA procedure. Risks, benefits of procedure discussed and pt verbalized understanding. Admits to anticoagulant use or medical history of diabetes. Protocol for discontinuation/ continuation of medications hammad procedure discussed. Minimal anesthesia provided per pt preference consisting of Versed and Fentanyl. All questions answered. I have spent less than 30 minutes on patient care today. Dr Perez was available by phone for the evaluation of this patient. The time was used to review the medical records including relevant urine studies and Prescription history (MAPs), review of the available imaging, evaluation and examination of the patient, coordination of care with the medical staff and if applicable referring physicians, as well as creation of the medical record PQRS Narrative: Smoking Status Former smoker Narcotic Agreement Date Signed 12/14/13 Hx Alcohol Use (MH) No Home Medications: Ambulatory Orders traMADol HCl [Ultram] 50 mg PO TID 02/15/14 traZODone HCL [Desyrel] 100 mg PO HS 02/15/14 Montelukast Sodium [Singulair] 10 mg PO HS 04/14/14 Pilocarpine [Salagen] 5 mg PO QID 10/20/14 Alendronate Sodium 70 mg PO PEACE 03/15/15 rOPINIRole HCL [Requip] 2 mg PO HS 04/22/18 EPINEPHrine [Epipen 2-Pipo] 0.3 mg IM ONCE PRN 05/05/18 Verapamil HCl [Verapamil ER] 120 mg PO HS 09/08/19 Mometasone Inhalr 220 Mcg/Puff [Asmanex] 2 puff INHALATION BID 09/14/20 Ibuprofen 800 mg PO TID 11/25/22 Hyoscyamine Sulfate [Levsin] 0.125 mg PO QID 05/25/23 Ipratropium-Albuterol Nebulize [Duoneb 0.5 mg-3 mg/3 ml Soln] 3 ml INHALATION QID 05/25/23 Pantoprazole [Protonix] 40 mg PO BID 05/25/23 Acetaminophen Tab [Tylenol] 650 mg PO Q6H #30 tab 05/29/23 Docusate [Colace] 100 mg PO BID #20 capsule 05/29/23 oxyCODONE HCL [OxyIR] 5 mg PO Q6H PRN 3 Days #10 tab 05/29/23 Controlled Substance Measures - Controlled Substance Measures Is patient prescribed a controlled substance at discharge?: No
== END ==
LOC: PNWHC3 12:08
PROVIDERS: ATTEND Specialist
DX: G57.93 Unspecified mononeuropathy of bilateral lower limbs (principal); M54.41 Lumbago with sciatica, right side; M79.7 Fibromyalgia; M50.320 Other cervical disc degeneration, mid-cervical region, unspecified level; M50.321 Other cervical disc degeneration at C4-C5 level; Z87.891 Personal history of nicotine dependence; Z88.8 Allergy status to other drugs, medicaments and biological substances; Z88.5 Allergy status to narcotic agent; Z91.030 Bee allergy status; Z88.1 Allergy status to other antibiotic agents; Z88.6 Allergy status to analgesic agent; Z91.013 Allergy to seafood; Z91.018 Allergy to other foods; Z91.09 Other allergy status, other than to drugs and biological substances; Z88.0 Allergy status to penicillin; Z88.2 Allergy status to sulfonamides; Z91.048 Other nonmedicinal substance allergy status
CPT/HCPCS: 99211

== ENCOUNTER 2024-02-12 11:03 | Day surgery (SDC) | payer OTHER ==
[2024-02-12] MEDS: IV FLUID CONTINUATION 1,000 ML IV ONE (11:29)
[2024-02-12] MEDS: LACTATED RINGERS 1,000 ML IV SCH (11:30)
[2024-02-12 11:39] VITALS: TEMP 97.3
[2024-02-12 11:51] LABS: Glucose,Whole Blood 89 mg/dL (70-110)
[2024-02-12] MEDS ORDERED: MIDAZOLAM 2 MG/2 ML VIAL ONE (12:53)
[2024-02-12] MEDS ORDERED: methylPREDNISolone ACETATE 40 MG/ML 1 ML VIAL ONE (12:53)
[2024-02-12] MEDS ORDERED: ROPIVACAINE 5MG/ML 20ML VIAL ONE (12:53)
[2024-02-12] MEDS ORDERED: fentaNYL (PF) 50 MCG/ML 2 ML AMP ONE (12:53)
--- NOTE | 2024-02-12 13:21 | P.PCN ---
Date of Procedure: 02/12/24 Procedure(s) Performed: PREOPERATIVE DIAGNOSIS: Cervical spondylosis with Facet Arthropathy without myelopathy. POSTOPERATIVE DIAGNOSIS: Cervical spondylosis with Facet Arthropathy without myelopathy. PROCEDURES: Radiofrequency thermocoagulation, Right C3, C4, C5 medial branch with Fluroscopy Guidence(fluoroscopy was available in Radiology department ) (to denervate the facet joint at Right C3- 4 , C4- 5 ) ANESTHESIA: Moderate sedation with Versed 2 mg and fentanyl 100 mcg. (Sedation was started at 12:53, ended at 13:17 ) EBL: Minimal PROCEDURE INDICATION: The patient with neck pain secondary to cervical arthropathy who had more than 50% relief of her pain with previous diagnostic cervical medial branch block. PROCEDURE DESCRIPTION / TECHNIQUE: The patient was seen and identified in the preoperative area. Risks, benefits, complications, and alternatives were discussed with the patient, the patient agreed to proceed with the procedure and signed the consent. IV was started. Vital signs remained stable throughout the procedure. Patient was taken to the OR and time out was completed. The patient was placed in the prone position on the procedure table. A pillow was placed under the patients chest to increase the cervical interlaminar space. The cervical area was prepped and draped in the usual sterile fashion. Critical pause was taken. Vital signs were closely monitored during the procedure. Conscious sedation was used during the procedure to decrease patients anxiety. Using cross-table lateral fluoroscopy, the centroid of the trapezoid of right C3, C4, C5, were identified, marked, and localized with 1% lidocaine. Subsequently, a 20 [id number] radiofrequency cannula with a 10-mm active tip was advanced guided by fluoroscopy to the centroid of the trapezoid of right C3, C4, C5 . Needle tip position was confirmed at the centroid of the trapezoids of right C3, C4, C5 with anteroposterior fluoroscopy. Each site then underwent sensory testing at 50 Hz and 0 to 1 volt and motor testing at 2 Hz and 0 to 3 volt with local stimulation, but no radicular symptoms down the arm. Thereafter each sites underwent radiofrequency thermocoagulation at 80 degrees celsius for 90 seconds after injecting 0.5 ml of PF Ropivacaine 0.5 %. After thermocoagulation, 1 ml of the block solution containing Depo-Medrol 40 mg and 3 mL of preservative-free normal saline was injected at the right C3, C4, C5 levels after negative aspiration of CSF and blood and with no paresthesias. Cannulas removed intact. the Skin was cleansed and bandages were applied. COMPLICATIONS: No acute complications. DISPOSITION / PLANS: The patient was placed in a supine position and transferred to the recovery area in a stable condition for observation and was discharged from the recovery room after meeting discharge criteria. Home discharge instructions given to the patient by the staff. The patient was reexamined prior to discharge. The patient will schedule a follow up in the clinic in 2-4 weeks. To do the left side RFA of left C3-C4 and C4-5.
[2024-02-12] MEDS: IV FLUID CONTINUATION 500 ML IV ONE (13:27)
--- NOTE | 2024-02-12 13:44 | FL ---
Fluoroscopy History: CERVICAL SPONDYLOSIS 24 sec [place] .[id number] DAP dose
[2024-02-12 13:54] VITALS: BP 130/69; PULSE 65; RESP 18
== END 2024-02-12 13:57 | disposition home or self-care (01) ==
LOC: ORPAIN 11:03
PROVIDERS: ATTEND Specialist
DX: M47.812 Spondylosis without myelopathy or radiculopathy, cervical region (principal)
CPT/HCPCS: 64633; 64634; 99152; 99153; J2250; J3010; J2795; J1010

== ENCOUNTER 2024-04-08 07:00 | Day surgery (SDC) | payer OTHER ==
[~2024-04-08 07:00] MED LIST changes: -DEXAMETHASONE SOD PHOSPHATE 4 MG/ML 1 ML VIAL IV ONE; -HEPARIN SODIUM,PORCINE/PF 5,000 UNIT/0.5 ML SYRINGE SQ PRN; +LACTATED RINGERS 1,000 ML BAG ONE; -LIDOCAINE 1% (10MG/ML) FOR IV START INTRADERMA PRN; -MIDAZOLAM 2 MG/2 ML VIAL IV PRN; -ONDANSETRON 4 MG/2 ML VIAL IVP ONE
[2024-04-08] MEDS ORDERED: MIDAZOLAM 2 MG/2 ML VIAL ONE (07:16)
[2024-04-08] MEDS ORDERED: ROPIVACAINE 5MG/ML 20ML VIAL ONE (07:16)
[2024-04-08] MEDS ORDERED: fentaNYL (PF) 50 MCG/ML 2 ML AMP ONE (07:16)
[2024-04-08] MEDS ORDERED: methylPREDNISolone ACETATE 40 MG/ML 1 ML VIAL ONE (07:16)
--- NOTE | 2024-05-26 10:35 | FL ---
EXAMINATION TYPE: FL guided pain mgmt statistic DATE OF EXAM: 04/21/2024 2:22 PM COMPARISON: Pre Operative Images if available both CT/MRI or plain film CLINICAL INDICATION: Female, 63 years old with history of CERV RFA; TECHNIQUE: FL guided pain mgmt statistic, multiple fluoroscopic images provided for procedure. Total fluoroscopy time: 32.2 seconds Total submitted images to PACS: 2 DAP: [id number] mGym2 Gycm2 uGym2 cGycm2 or equivalent. FINDINGS: Fluoroscopic images during injection for pain management demonstrate multilevel degeneration changes throughout the spine. No evidence for fracture. No acute process identified. IMPRESSION: 1. No evidence for intraoperative complication. 2. Please see the operative/procedural note for further details. [facility], , 05/26/2024 10:33 AM
== END 2024-04-08 08:15 ==
LOC: ORPAIN 07:00
PROVIDERS: ATTEND Specialist
DX: K29.50 Unspecified chronic gastritis without bleeding
CPT/HCPCS: 64633; 64634; 99152

== ENCOUNTER 2024-04-14 07:49 | Day surgery (SDC) | payer OTHER ==
[2024-04-14] MEDS ORDERED: PROPOFOL 10 MG/ML 20 ML VIAL IV ONE (09:23)
--- NOTE | 2024-04-15 15:57 | PCN ---
PROCEDURE NOTE PROCEDURE PERFORMED: EGD. PREOPERATIVE DIAGNOSIS: Dysphagia. POSTOPERATIVE DIAGNOSES: 1. Mild antral gastritis. 2. Sliding hiatal hernia. 3. Esophagitis. SURGEON: Dr. Brito. ANESTHESIA: MAC. DESCRIPTION OF PROCEDURE: The patient was placed on the endoscopy table in the lateral position. She received IV sedation. The gastroscope was placed in the oropharynx, passed into the esophagus and stomach. The scope was then placed through the pylorus. The first and second portion of duodenum appeared normal. Scope was then brought back in the antrum. This appeared mildly inflamed. A biopsy was performed. The scope was then retroflexed and there was a small sliding hiatal hernia. The GE junction was at 38 cm. The distal esophagus appeared mildly inflamed. Biopsies were performed. The proximal esophagus appeared normal. Scope was withdrawn from the patient. MMODL / IJN: [id number] /
== END 2024-04-14 10:18 ==
LOC: ORWHC2ENDO 07:49
PROVIDERS: ATTEND Surgery
DX: K21.00 Gastro-esophageal reflux disease with esophagitis, without bleeding (principal); K44.9 Diaphragmatic hernia without obstruction or gangrene; I10 Essential (primary) hypertension; J44.89 Other specified chronic obstructive pulmonary disease; G47.33 Obstructive sleep apnea (adult) (pediatric); E11.9 Type 2 diabetes mellitus without complications; Z88.1 Allergy status to other antibiotic agents; Z88.8 Allergy status to other drugs, medicaments and biological substances; Z88.6 Allergy status to analgesic agent; Z79.84 Long term (current) use of oral hypoglycemic drugs; Z79.51 Long term (current) use of inhaled steroids; Z79.899 Other long term (current) drug therapy; Z90.49 Acquired absence of other specified parts of digestive tract
CPT/HCPCS: 43239

== ENCOUNTER → 2024-04-28 | Outpatient (CLI) | payer OTHER ==
--- NOTE | 2024-04-28 11:18 | FL ---
EXAMINATION TYPE: FL UGI air w esophagus DATE OF EXAM: 04/28/2024 COMPARISON: 12/25/2021 HISTORY: 63-year-old female are 1 3.10, dysphagia. The patient had previous hiatal hernia repair back in May 2023 with resolution of symptoms but now with recurrent reflux and regurgitation that has developed over the last 2-3 months. TECHNIQUE: A double contrast esophagram and UGI study is performed. A total of 2 minutes 15 seconds of fluoroscopic time was utilized during procedure and 42 images obtained. Total dose area product ( DAP) in uGy*m?, mGy*cm? (or similar): 100. FINDINGS: The swallowing mechanism is normal and hypopharyngeal anatomy is preserved. The cervical and thoracic portions have a normal course and caliber. Only mild tertiary peristaltic w aves are noted. The mucosa is normal and no persistent filling defect is encountered. There is a small hiatal hernia demonstrated. When the patient is supine with Valsalva, severe gastroe sophageal reflux occurs to the upper chest. There is some contour deformity to the fundus of the stomach likely reflecting previous hiatal hernia repair. The stomach otherwise shows normal distensibility, peristalsis, and mucosal folds. No evide nce of any mass or ulcer disease. The duodenal bulb, sweep, and proximal small bowel loops are unremarkable. IMPRESSION: 1. Recurrence of a small hiatal hernia. Severe gastroesophageal reflux occurs when the patient is sup ine with Valsalva maneuver. 2. No other significant abnormality identified on the esophagram and upper GI examination.
== END | disposition home or self-care (01) ==
LOC: RADUSWWP 09:22
PROVIDERS: ATTEND Surgery
DX: R13.10 Dysphagia, unspecified
CPT/HCPCS: 74246

== ENCOUNTER → 2024-04-28 | Outpatient (CLI) | payer OTHER ==
[2024-04-28 11:55] VITALS: BP 144/92; PULSE 57; RESP 16; TEMP 97.3
--- NOTE | 2024-04-28 14:13 | P.PAINPG ---
PQRS Measure Charge Sheet Comment: A 63 yr old female with a history of severe and chronic neck pain secondary to cervical DDD and spondylosis with facet arthropathy without myelopathy presents today for evaluation s/p BL RFA C3-C5. Pt admits she experienced 70 % pain relief s/p procedure. Pain level is provoked at 6 /10 in intensity, inter mittent, localized in the cervical spine, predominantly axial, sore in character without shooting pain. Pain is provoked by rotation, over head reaching and PT years ago. Pain is alleviated with PT years ago, physician guided HEP stretching (cervical) 3 times a week since Jan 2021, ice, use of a cane for ambulatory assistance, Cannabis products, repositioning and rest. Interventional pain procedures completed include BL RFA L3-5, BL RFA C3-5 (Jan 2023, Mar 2024) Patient is currently on Tramadol, Ibu, THC products Patient denies any side effects of the medication(s), denies excessive drowsine ss or sleepiness, denies suicidal ideation and reports that the current pain medication is helping to control the pain and improve activities of daily living. Patient denies any motor or sensory deficits. Patient denies any fever or night sweats, denies any change in the bowel movements or urination. Physical Examination: -Constitutional: Cooperative. Not in acute distress . - Neurologic: Cranial nerve II to XII intact. No focal neurological deficits. - Psychatric: Alert & oriented x 3. Matching mood & appropriate affect. Judgment and insight intact. - Musculoskeletal: Cervical spine: Muscle bulk/ tone/ strength in the bilateral upper extremities normal Vertebral body tenderness to palpation over Spurling test positive Distraction test positive Facet loading test positive TTP BL C3-C4, C4-C5 facets Thoracic spine Muscle bulk / tone/ strength in the bilateral paraspinal muscles normal Vertebral body tender to palpation over Facet loading test positive TTP Lumbar spine: Motor bulk/ tone/ strength lower extremities , thigh and legs : 5/5 Deep tendon reflexes : Normal Knee Jerk. Normal Ankle Jerk . Vertebral body tenderness to palpation over Lumbar Facet Loading Test positive Straight Leg Raise: positive at 30 degrees right side/ left side Gaenslen's Test positive Sacral spine : Severe tenderness over the Sacroiliac joint: right side / left side Range of motion: Flexion of the lumbar spine <60 degrees Range of motion: Extension of the lumbar spine <20 degrees Gaenslen's Test positive right side / left side Jayden test: positive right side / left side Thigh Thrust Test positive right side / left side Sacral Thrust Test positive right side / left side Assessment and plan: Chronic neck pain secondary to cervical DDD, spondylosis with facet arthropathy without myelopathy Will manage residual pain and may RTC on an as needed basis. All questions answered. I have spent less than 30 minutes on patient care today. Dr Perez was available by phone for the evaluation of this patient. The time was used to review the medical records including relevant urine studies and Prescription history (MAPs), review of the available imaging, evaluation and examination of the patient, coordination of care with the medical staff and if applicable referring physicians, as well as creation of the medical record PQRS Narrative: Smoking Status Former smoker Narcotic Agreement Date Signed 12/14/13 Hx Alcohol Use (MH) No Home Medications: Ambulatory Orders traMADol HCl [Ultram] 50 mg PO TID 02/15/14 traZODone HCL [Desyrel] 100 mg PO HS 02/15/14 Montelukast Sodium [Singulair] 10 mg PO HS 04/14/14 Pilocarpine [Salagen] 5 mg PO QID 10/20/14 Alendronate Sodium 70 mg PO PEACE 03/15/15 rOPINIRole HCL [Requip] 1 mg PO HS 04/22/18 EPINEPHrine [Epipen 2-Pipo] 0.3 mg IM ONCE PRN 05/05/18 Verapamil HCl [Verapamil ER] 120 mg PO HS 09/08/19 Mometasone Inhalr 220 Mcg/Puff [Asmanex] 2 puff INHALATION BID 09/14/20 Ibuprofen 800 mg PO TID 11/25/22 Hyoscyamine Sulfate [Levsin] 0.125 mg PO QID 05/25/23 Ipratropium-Albuterol Nebulize [Duoneb 0.5 mg-3 mg/3 ml Soln] 3 ml INHALATION QID 05/25/23 Pantoprazole [Protonix] 40 mg PO BID 05/25/23 Albuterol Inhaler [Ventolin Hfa Inhaler] 1 - 2 puff INHALATION DIRECTED 02/10/24 Famotidine 20 mg PO BID 02/10/24 Lidoerm Patch 5% (Unk) 1 patch TRANSDERM Q12H PRN 02/10/24 Loratadine [Claritin] 5 mg PO DAILY 02/10/24 Controlled Substance Measures - Controlled Substance Measures Is patient prescribed a controlled substance at discharge?: No
== END ==
LOC: PNWHC3 11:02
PROVIDERS: ATTEND Specialist
DX: M47.812 Spondylosis without myelopathy or radiculopathy, cervical region
CPT/HCPCS: 99211

== ENCOUNTER 2024-06-10 05:43 | Day surgery (SDC) | payer OTHER ==
[2024-06-10] MEDS: IV FLUID CONTINUATION 1,000 ML IV ONE ×2 (06:50→07:36)
[2024-06-10] MEDS: LACTATED RINGERS 1,000 ML IV SCH (06:50)
[2024-06-10] MEDS: LIDOCAINE 1% (10MG/ML) FOR IV START INTRADERMA STA (06:50)
[2024-06-10 06:51] LABS: Glucose,Whole Blood 82 mg/dL (70-110)
[2024-06-10] MEDS: DEXAMETHASONE SOD PHOSPHATE 4 MG/ML 1 ML VIAL IV ONE (06:56)
[2024-06-10] MEDS: ONDANSETRON 4 MG/2 ML VIAL IVP ONE (06:56)
[2024-06-10] MEDS ORDERED: fentaNYL (PF) 50 MCG/ML 2 ML AMP IVP PRN (07:00)
[2024-06-10 07:05] LABS: HCT 39.7 % (34.0-46.0); HGB 12.9 gm/dL (11.4-16.0); MCH 30.7 pg (25.0-35.0); MCHC 32.5 g/dL (31.0-37.0); MCV 94.2 fL (80.0-100.0); Mean Platelet Volume 7.2; Platelet Count 257 k/uL (150-450); RBC 4.21 m/uL (3.80-5.40); RDW 12.6 % (11.5-15.5); WBC 5.5 k/uL (3.8-10.6)
[2024-06-10] MEDS: SCOPOLAMINE 1 MG/72 HR PATCH TRANSDERM ONE (07:12)
[2024-06-10] MEDS ORDERED: fentaNYL (PF) 50 MCG/ML 2 ML AMP ONE (07:36)
[2024-06-10] MEDS ORDERED: SUCCINYLCHOLINE CHLORIDE 200 MG/10 ML VIAL IV ONE (07:36)
[2024-06-10] MEDS ORDERED: PROPOFOL 10 MG/ML 20 ML VIAL IV ONE (07:36)
[2024-06-10] MEDS ORDERED: ROCURONIUM 10 MG/ML (5 ML VIAL) IV ONE (07:36)
[2024-06-10] MEDS ORDERED: GLYCOPYRROLATE 0.2 MG/ML 2 ML VIAL ONE (07:36)
[2024-06-10] MEDS ORDERED: HYDROmorphone (PF) 1 MG/ML ONE (07:36)
[2024-06-10] MEDS ORDERED: HEPARIN SODIUM,PORCINE 5,000 UNIT/ML 1 ML VIAL ONE (07:36)
[2024-06-10] MEDS ORDERED: MIDAZOLAM 2 MG/2 ML VIAL ONE (07:36)
[2024-06-10] MEDS ORDERED: NEOSTIGMINE 1 MG/ML 10 ML VIAL ONE (07:36)
[2024-06-10] MEDS ORDERED: LIDOCAINE 1% INJ 10MG/ML (20 ML MDV) ONE (07:36)
[2024-06-10] MEDS ORDERED: PHENYLEPHRINE-0.9% NACL SYG 1,000 MCG/10 ML SYRINGE ONE (07:36)
--- NOTE | 2024-06-10 07:40 | P.GSHP ---
History of Present Illness H&P Date: 06/10/24 Chief Complaint: GERD, hiatal hernia This a 63-year-old female who has complaints of severe gerd. Patient has been refractory medical management. Patient is developing recurrent hiatal hernia. She presents today for laparoscopic repair. Past Medical History Past Medical History: Asthma, Chest Pain / Angina, COPD, Diabetes Mellitus, Fibromyalgia, GERD/Reflux, Hearing Disorder / Deafness, Hyperlipidemia, Hypertension, Liver Disease, Osteoarthritis (OA), Renal Disease, Rheumatoid Arthritis (RA), Skin Disorder, Sleep Apnea/CPAP/BIPAP, Thyroid Disorder Additional Past Medical History / Comment(s): HX of Hep. C was treated, hx liver and kidney failure from Lisinopril, DDD, Sjogren's syndrome. States diet controlled diabetes, restless leg syndrome, irregular heartbeat - sinus tachycardia, diverticulitis, "touch of crohns", IBS, overactive bladder, psoriasis, thyroid nodules, hx anemia as a child, bleeds easily-not on a blood thinner, plantar faciitis, partially deaf right ear. will be using c pap, also wears 3L o2 @hs and PRN History of Any Multi-Drug Resistant Organisms: None Reported Past Surgical History: Cholecystectomy, Hernia Repair, Orthopedic Surgery, Tubal Ligation Additional Past Surgical History / Comment(s): BILAT Carpal tunnel, eye surgery, right little toe fracture, HIATAL HERNIA 05/2023, Umbilical hernia X2; [facility] lipoma removed right shoulder, hemorrhoidectomy x 2 lft aisha hernia, upper rt abdomen area hernia repair, Past Anesthesia/Blood Transfusion Reactions: No Reported Reaction, Motion Sickness Smoking Status: Former smoker - Past Family History Father Family Medical History: Cancer Additional Family Medical History / Comment(s): Colon cancer. Mother Family Medical History: Cancer Additional Family Medical History / Comment(s): Uterine, skin cancer. Medications and Allergies Home Medications Medication Instructions Recorded Confirmed Type traMADol HCl [Ultram] 50 mg PO TID 02/15/14 06/10/24 History traZODone HCL [Desyrel] 100 mg PO HS 02/15/14 06/10/24 History Montelukast Sodium [Singulair] 10 mg PO HS 04/14/14 06/10/24 History Pilocarpine [Salagen] 5 mg PO QID 10/20/14 06/10/24 History Alendronate Sodium 70 mg PO PEACE 03/15/15 06/10/24 History rOPINIRole HCL [Requip] 1 mg PO HS 04/22/18 06/10/24 History EPINEPHrine [Epipen 2-Pipo] 0.3 mg IM ONCE PRN 05/05/18 06/10/24 History Verapamil HCl [Verapamil ER] 120 mg PO HS 09/08/19 06/10/24 History Mometasone Inhalr 220 Mcg/Puff 2 puff INHALATION BID 09/14/20 06/10/24 History [Asmanex] Ibuprofen 800 mg PO TID 11/25/22 06/10/24 History Hyoscyamine Sulfate [Levsin] 0.125 mg PO QID 05/25/23 06/10/24 History Ipratropium-Albuterol Nebulize 3 ml INHALATION QID 05/25/23 06/10/24 History [Duoneb 0.5 mg-3 mg/3 ml Soln] Albuterol Inhaler [Ventolin Hfa 1 - 2 puff INHALATION DIRECTED 02/10/24 06/10/24 History Inhaler] Lidoerm Patch 5% (Unk) 1 patch TRANSDERM Q12H PRN 02/10/24 06/10/24 History Loratadine [Claritin] 5 mg PO HS 02/10/24 06/10/24 History Albuterol Sulfate/Budesonide 2 puff PO BID 06/03/24 06/10/24 History [Airsupra 90-80 Mcg Inhaler] Fluticasone Nasal [place] [Flonase 2 spray EA NOSTRIL BID 06/03/24 06/10/24 History Nasal [place]] Metoclopramide [Reglan] 5 mg PO DIRECTED PRN 06/03/24 06/10/24 History Ondansetron Odt [Zofran Odt] 4 mg PO DIRECTED PRN 06/03/24 06/10/24 History hydrOXYzine pamoate 25 mg PO HS 06/03/24 06/10/24 History Allergies Allergy/AdvReac Type Severity Reaction Status Date / Time JOSE Inhibitors Allergy Severe kidney and Verified 06/10/24 06:59 liver failure, dehydration morphine Allergy Severe SWELLING,RASH,SWELLING Verified 06/10/24 06:59 OF TONGUE,ABDOMINAL PAIN venom-honey bee Allergy Severe SHORTNESS Verified 06/10/24 06:59 OF BREATH,VOMITING, rash, swelling acetaminophen Allergy Rash/Hives Verified 06/10/24 06:59 amitriptyline Allergy tongue Verified 06/10/24 06:59 swelling/rash aspirin Allergy Anaphylaxis,vomting, Verified 06/10/24 06:59 tongue swelling, SOB, rash atorvastatin calcium Allergy Anaphylaxis, Verified 06/10/24 06:59 [From Lipitor] vomting, rash bee pollen Allergy Anaphylaxis Verified 06/10/24 06:59 bupropion HCl Allergy TONGUE Verified 06/10/24 06:59 [From Wellbutrin] SWELLING/vomiting calcium Allergy Diarrhea Verified 06/10/24 06:59 ciprofloxacin [From Cipro] Allergy Vomiting,RA Verified 06/10/24 06:59 SH citalopram hydrobromide Allergy TONGUE Verified 06/10/24 06:59 [From Celexa] SWELLING clarithromycin [From Biaxin] Allergy Vomiting, Verified 06/10/24 06:59 SOB, tongue swelling duloxetine HCl Allergy SWELLING Verified 06/10/24 06:59 [From Cymbalta] OF TONGUE Fish Containing Products Allergy Vomiting,SW Verified 06/10/24 06:59 ELLINGDAVID S lisinopril Allergy kidney and Verified 06/10/24 06:59 liver failure,dehydration naproxen Allergy Vomiting,TONGUE Verified 06/10/24 06:59 SWELLING,SHORTNESS OF BREATH paroxetine HCl [From Paxil] Allergy Vomiting,TONGUE Verified 06/10/24 06:59 SWELLING, nausea Penicillins Allergy Anaphylaxis Verified 06/10/24 06:59 pregabalin [From Lyrica] Allergy TONGUE Verified 06/10/24 06:59 SWELLING ,RASH, vomiting Salicylates Allergy Anaphylaxis, Verified 06/10/24 06:59 vomting, tongue swelling, rash sertraline HCl [From Zoloft] Allergy SWELLING Verified 06/10/24 06:59 OF TONGUE shellfish derived [Shellfish] Allergy SWELLING Verified 06/10/24 06:59 OF TONGUE,,HIVES,vomiting sulfamethoxazole Allergy Rapid Verified 06/10/24 06:59 [From Bactrim] Heart Rate tizanidine Allergy Itching Verified 06/10/24 06:59 trimethoprim [From Bactrim] Allergy Rapid Verified 06/10/24 06:59 Heart Rate BEE,WASP,YELLOW JACKET-ANY Allergy Severe Anaphylaxis Uncoded 06/10/24 06:59 STING Plastic adhesive Allergy skin peels Uncoded 06/03/24 10:56 off SEAFOOD Allergy SWELLING Uncoded 06/03/24 10:21 OF TONGUE,HIVES, vomiting Surgical - Exam Vital Signs Temp Pulse Resp BP Pulse Ox 97.6 F 78 18 127/72 98 06/10/24 07:17 06/10/24 07:17 06/10/24 07:17 06/10/24 07:17 06/10/24 07:17 - General well developed, well nourished, no distress - Eyes PERRL - ENT normal pinna - Neck no masses - Respiratory normal expansion - Cardiovascular Rhythm: regular - Abdomen Abdomen: soft, non tender Results - Labs 06/10/24 06:53 Assessment and Plan Assessment: GERD, recurrent hiatal hernia. Will perform a s laparoscopic repair of hiatal hernia.
[2024-06-10] MEDS: LIDOCAINE 1%-EPI 1:100,000 20 ML VIAL SQ ONE (08:10)
--- NOTE | 2024-06-10 09:13 | P.OP ---
Date of Procedure: 06/10/24 Preoperative Diagnosis: Hiatal hernia Postoperative Diagnosis: Vital hernia Procedure(s) Performed: Laparoscopic repair of hiatal hernia with mesh [place] Bio-A Anesthesia: MARYBEL Surgeon: Micha Brito Estimated Blood Loss (ml): 5 Pathology: none sent Condition: stable Disposition: PACU Description of Procedure: The patient was placed on the operating table in the supine position. The patient received general anesthesia. And was placed in dorsal lithotomy position. The patient was prepped and draped in the usual sterile fashion. The skin incision sites were anesthetized with 1% local Xylocaine. The skin was incised in the left periumbilical area and then using a blade less 5 mm trocar under direct visualization panel cavity was entered. After adequate insufflation the laparoscope was then placed into the peritoneal cavity. Next a 5 mm trochars placed in the right epigastric position. Another 5 millimeter trocar the right lateral position. Another 5 millimeter trocar in the left lateral position a 5 mm trocar is placed in the left epigastric position. And then the initial 5 mm trocar was exchanged for a 10 mm trocar. The left lateral lobe liver was retracted. The adhesions to the stomach liver were taken down with sharp dissection. The hiatal hernia was visualized. The crural defect was dissected with [place]-60 fashion. The stomach was reduced back into the peritoneal cavity. The crural defect was then closed using 2-0 Ethibond sutures in an anterior gastric fashion. Next a piece of [place] bio a mesh was placed over top of the repair and secured with the sole right device. There was no injury to the stomach or esophagus. The eye was irrigated. The trocars were withdrawn. The skin was then closed with interrupted 3-0 Monocryl suture. Dermabond dressing was applied.
[2024-06-10] MEDS: METOCLOPRAMIDE 5 MG/ML 2 ML VIAL IVP SCH (09:25)
[2024-06-10] MEDS: HYDROmorphone 0.5 MG/0.5 ML SYRINGE IVP PRN (09:29)
[2024-06-10] MEDS: IPRATROPIUM-ALBUTEROL 3 ML NEB INHALATION STA (09:42)
[2024-06-10] MEDS: droPERidol 5 MG/2 ML VIAL IVP ONE (09:47)
[2024-06-10 10:40] LABS: Glucose,Whole Blood 180 mg/dL (70-110)
[2024-06-10 11:53] LABS: Glucose,Whole Blood 144 mg/dL (70-110)
[2024-06-10] MEDS: HYDROmorphone 1 MG/ML 1 ML SYRINGE IVP PRN (12:39)
[2024-06-10] MEDS: D5-0.45% NACL WITH KCL 20MEQ/L 1,000 ML IV SCH (13:07)
[2024-06-10] MEDS ORDERED: ALBUTEROL NEBULIZED 2.5 MG/3 ML INHALATION PRN (15:12)
[2024-06-10] MEDS ORDERED: LIDOCAINE 4% PATCH TOPICAL PRN (15:12)
[2024-06-10] MEDS ORDERED: DEXTROSE 50% SYRINGE 50 ML IVP PRN ×2 (15:14)
[2024-06-10 16:32] VITALS: BMI 31.0
[2024-06-10] MEDS: IPRATROPIUM-ALBUTEROL 3 ML NEB INHALATION SCH (16:35)
[2024-06-10 17:05] LABS: Glucose,Whole Blood 119 mg/dL (70-110)
[2024-06-10] MEDS: INSULIN ASPART (NovoLOG) 100 UNIT/ML VIAL SQ SCH (17:49)
[2024-06-10 19:44] LABS: Glucose,Whole Blood 131 mg/dL (70-110)
[2024-06-10] MEDS: MONTELUKAST 10 MG TAB PO SCH (19:48)
[2024-06-10] MEDS: traZODone HCL 100 MG TAB PO SCH (19:48)
[2024-06-10] MEDS: hydrOXYzine pamoate 25 MG CAP PO SCH (19:51)
[2024-06-10] MEDS: FLUTICASONE NASAL 50MCG/SPRAY 16GM BTL EA NOSTRIL SCH (19:53)
[2024-06-10] MEDS: LORATADINE 10 MG TAB PO SCH (19:53)
[2024-06-10] MEDS: FLUTICASONE 220 MCG INHALER INHALATION SCH (21:12)
[2024-06-11 06:32] LABS: Glucose,Whole Blood 89 mg/dL (70-110)
[2024-06-11] MEDS: ONDANSETRON 4 MG/2 ML VIAL IVP PRN (06:34)
[2024-06-11] MEDS: NON FORMULARY DRUG (Albuterol Sulfate/Budesonide [Airsupra 90-80 Mcg Inhaler] 10.7 GM Hfa. PO SCH (07:44)
[2024-06-11] MEDS: ENOXAPARIN 40 MG/0.4 ML SYRINGE SQ SCH (08:33)
[2024-06-11 09:02] VITALS: BP 110/64; PULSE 94; RESP 17; TEMP 98.2
--- NOTE | 2024-06-11 09:36 | P.DS ---
Providers Date of admission: June 10, 2024 Expected date of discharge: 06/11/24 Attending physician: Micha Brito Consults: 06/10/24 15:10 Consult Physician Routine Consulting Provider: Anupam Anaya Consult Reason/Comments: medical management Do you want consulting provider notified?: Already Contacted Primary care physician: Beau Ngo MD Hospital Course: This is a 63-year-old female who underwent laparoscopic pair of recurrent hiatal hernia. Patient did well postop. Patient was discharged home on postoperative day 1. Procedures: Laparoscopic hiatal hernia Patient Condition at Discharge: Good Plan - Discharge Summary Discharge Rx Participant: No New Discharge Prescriptions: New Ibuprofen [Motrin] 600 mg PO Q6HR PRN #40 tab PRN Reason: Pain Docusate [Colace] 100 mg PO BID #20 capsule oxyCODONE HCL [OxyIR] 5 mg PO Q6H PRN 3 Days #10 tab PRN Reason: Pain Acetaminophen Tab [Tylenol] 650 mg PO Q6H #30 tab No Action traMADol HCl [Ultram] 50 mg PO TID traZODone HCL [Desyrel] 100 mg PO HS Montelukast Sodium [Singulair] 10 mg PO HS Pilocarpine [Salagen] 5 mg PO QID Alendronate Sodium 70 mg PO PEACE rOPINIRole HCL [Requip] 1 mg PO HS EPINEPHrine [Epipen 2-Pipo] 0.3 mg IM ONCE PRN PRN Reason: Anaphylaxis Verapamil HCl [Verapamil ER] 120 mg PO HS Mometasone Inhalr 220 Mcg/Puff [Asmanex] 2 puff INHALATION BID Ibuprofen 800 mg PO TID Hyoscyamine Sulfate [Levsin] 0.125 mg PO QID Loratadine [Claritin] 5 mg PO HS Lidoerm Patch 5% (Unk) 1 patch TRANSDERM Q12H PRN PRN Reason: Pain Fluticasone Nasal [place] [Flonase Nasal [place]] 2 spray EA NOSTRIL BID Albuterol Sulfate/Budesonide [Airsupra 90-80 Mcg Inhaler] 2 puff PO BID Ondansetron Odt [Zofran Odt] 4 mg PO DIRECTED PRN PRN Reason: Nausea Metoclopramide [Reglan] 5 mg PO DIRECTED PRN PRN Reason: Nausea Ipratropium-Albuterol Nebulize [Duoneb 0.5 mg-3 mg/3 ml Soln] 3 ml INHALATION QID Albuterol Inhaler [Ventolin Hfa Inhaler] 1 - 2 puff INHALATION DIRECTED hydrOXYzine pamoate 25 mg PO HS Discharge Medication List traMADol HCl [Ultram] 50 mg PO TID 02/15/14 [History] traZODone HCL [Desyrel] 100 mg PO HS 02/15/14 [History] Montelukast Sodium [Singulair] 10 mg PO HS 04/14/14 [History] Pilocarpine [Salagen] 5 mg PO QID 10/20/14 [History] Alendronate Sodium 70 mg PO PEACE 03/15/15 [History] rOPINIRole HCL [Requip] 1 mg PO HS 04/22/18 [History] EPINEPHrine [Epipen 2-Pipo] 0.3 mg IM ONCE PRN 05/05/18 [History] Verapamil HCl [Verapamil ER] 120 mg PO HS 09/08/19 [History] Mometasone Inhalr 220 Mcg/Puff [Asmanex] 2 puff INHALATION BID 09/14/20 [History] Ibuprofen 800 mg PO TID 11/25/22 [History] Hyoscyamine Sulfate [Levsin] 0.125 mg PO QID 05/25/23 [History] Ipratropium-Albuterol Nebulize [Duoneb 0.5 mg-3 mg/3 ml Soln] 3 ml INHALATION QID 05/25/23 [History] Albuterol Inhaler [Ventolin Hfa Inhaler] 1 - 2 puff INHALATION DIRECTED 02/10/24 [History] Lidoerm Patch 5% (Unk) 1 patch TRANSDERM Q12H PRN 02/10/24 [History] Loratadine [Claritin] 5 mg PO HS 02/10/24 [History] Albuterol Sulfate/Budesonide [Airsupra 90-80 Mcg Inhaler] 2 puff PO BID 06/03/24 [History] Fluticasone Nasal [place] [Flonase Nasal [place]] 2 spray EA NOSTRIL BID 06/03/24 [History] Metoclopramide [Reglan] 5 mg PO DIRECTED PRN 06/03/24 [History] Ondansetron Odt [Zofran Odt] 4 mg PO DIRECTED PRN 06/03/24 [History] hydrOXYzine pamoate 25 mg PO HS 06/03/24 [History] Acetaminophen Tab [Tylenol] 650 mg PO Q6H #30 tab 06/11/24 [Rx] Docusate [Colace] 100 mg PO BID #20 capsule 06/11/24 [Rx] Ibuprofen [Motrin] 600 mg PO Q6HR PRN #40 tab 06/11/24 [Rx] oxyCODONE HCL [OxyIR] 5 mg PO Q6H PRN 3 Days #10 tab 06/11/24 [Rx] Follow up Appointment(s)/Referral(s): Micha Brito MD [STAFF PHYSICIAN] - 1 Week Activity/Diet/Wound Care/Special Instructions: Full liquid diet Discharge Disposition: HOME SELF-CARE
== END 2024-06-11 11:15 | disposition home or self-care (01) ==
LOC: OR 05:43 → 4SSUR 10:31 → OR 06-11 11:15
PROVIDERS: ATTEND Surgery
CPT/HCPCS: 83036; 85027; 94760

== ENCOUNTER 2024-07-11 08:40 | Day surgery (SDC) | payer OTHER ==
[2024-07-08 10:20] VITALS: BMI 28.0
[2024-07-11] MEDS ORDERED: LIDOCAINE 1% (10MG/ML) FOR IV START INTRADERMA PRN (09:18)
[2024-07-11 09:29] VITALS: TEMP 97.3
[2024-07-11 09:38] LABS: Glucose,Whole Blood 83 mg/dL (70-110)
[2024-07-11] MEDS: IV FLUID CONTINUATION 1,000 ML IV ONE (09:38)
[2024-07-11] MEDS: LACTATED RINGERS 1,000 ML IV SCH (09:39)
[2024-07-11] MEDS ORDERED: PROPOFOL 10 MG/ML 20 ML VIAL IV ONE (10:02)
--- NOTE | 2024-07-11 10:20 | P.OP ---
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 She received IV sedation. The gastro/oropharynx passed in the esophagus into the stomach. Scope was placed with the pylorus. The first and second portion of the duodenum appeared normal. Scope was brought back to the antrum this appeared normal. Scope was then retroflexed there was no significant hiatal hernia. The GE junction was examined. The GE junction appeared to be slightly tight. The 20 mm balloon was placed across the GE junction and dilated. This was done sequentially 3 times. The balloon Gash over the withdrawal. Patient Toller procedure well. She was sent to recovery in stable condition.
[2024-07-11 10:29] VITALS: RESP 16
[2024-07-11 10:43] VITALS: BP 124/78; PULSE 78
== END 2024-07-11 11:40 | disposition home or self-care (01) ==
LOC: ORWHC2ENDO 08:40
PROVIDERS: ATTEND Surgery
DX: K22.2 Esophageal obstruction (principal); I10 Essential (primary) hypertension; E78.5 Hyperlipidemia, unspecified; J44.89 Other specified chronic obstructive pulmonary disease; G47.33 Obstructive sleep apnea (adult) (pediatric); M19.90 Unspecified osteoarthritis, unspecified site; M06.9 Rheumatoid arthritis, unspecified; E11.9 Type 2 diabetes mellitus without complications; M79.7 Fibromyalgia; G25.81 Restless legs syndrome; K58.9 Irritable bowel syndrome, unspecified; F10.90 Alcohol use, unspecified, uncomplicated; K21.9 Gastro-esophageal reflux disease without esophagitis; Z79.899 Other long term (current) drug therapy
CPT/HCPCS: 43249; J2704; C1726

== ENCOUNTER 2024-08-01 11:43 | Day surgery (SDC) | payer OTHER ==
[2024-07-27 16:26] VITALS: BMI 27.6
[2024-08-01 12:27] VITALS: TEMP 98.1
[2024-08-01 12:33] LABS: Glucose,Whole Blood 88 mg/dL (70-110)
[2024-08-01] MEDS: LACTATED RINGERS 1,000 ML IV SCH (12:34)
[2024-08-01] MEDS ORDERED: PROPOFOL 10 MG/ML 20 ML VIAL IV ONE (14:12)
[2024-08-01] MEDS ORDERED: LIDOCAINE 1% INJ 10MG/ML (20 ML MDV) ONE (14:12)
--- NOTE | 2024-08-01 14:33 | P.OP ---
Date of Procedure: 08/01/24 Preoperative Diagnosis: dysphagia Postoperative Diagnosis: dysphagia Procedure(s) Performed: EGD with balloon dilatation Anesthesia: MARYBEL Surgeon: Micha Brito Pathology: none sent Condition: stable Disposition: PACU Description of Procedure: the patient's placed on the endoscopy table in the lateral position. She received IV sedation. The gastroscope placed oropharynx passed in the esophagus and stomach. Scope was pylorus. First and second portion of duodenum appeared normal. Scope was then brought back the antrum this appeared normal. Scope was unretroflexed and remainder stomach appeared normal. Due to the patient's symptoms of dysphagia a 20 mm balloon was placed across the GE junction. There is no obvious seen. The balloon was held in position for 3 minutes. The balloon was then withdrawn. There was no injury to the esophagus and stomach. Scope was then withdrawn from the patient.
[2024-08-01 14:46] VITALS: BP 133/75; PULSE 88; RESP 16
== END 2024-08-01 15:04 | disposition home or self-care (01) ==
LOC: ORWHC2ENDO 11:43
PROVIDERS: ATTEND Surgery
DX: K21.9 Gastro-esophageal reflux disease without esophagitis (principal); I10 Essential (primary) hypertension; E78.5 Hyperlipidemia, unspecified; I20.9 Angina pectoris, unspecified; J45.909 Unspecified asthma, uncomplicated; G47.33 Obstructive sleep apnea (adult) (pediatric); E11.9 Type 2 diabetes mellitus without complications; E07.9 Disorder of thyroid, unspecified; N28.9 Disorder of kidney and ureter, unspecified; M79.7 Fibromyalgia; H91.90 Unspecified hearing loss, unspecified ear; M06.9 Rheumatoid arthritis, unspecified; K50.90 Crohn's disease, unspecified, without complications; Z99.89 Dependence on other enabling machines and devices; Z88.0 Allergy status to penicillin; Z88.1 Allergy status to other antibiotic agents; Z88.2 Allergy status to sulfonamides; Z88.5 Allergy status to narcotic agent; Z88.8 Allergy status to other drugs, medicaments and biological substances; Z88.6 Allergy status to analgesic agent; Z88.9 Allergy status to unspecified drugs, medicaments and biological substances; Z91.030 Bee allergy status; Z79.51 Long term (current) use of inhaled steroids; Z79.899 Other long term (current) drug therapy
CPT/HCPCS: 43249; J2003; J2704; C1726

== ENCOUNTER 2024-12-15 07:29 | Day surgery (SDC) | payer OTHER ==
[2024-12-12 15:12] VITALS: BMI 29.8
[~2024-12-15 07:29] MED LIST changes: -LACTATED RINGERS 1,000 ML BAG ONE; +LIDOCAINE 1% (10MG/ML) FOR IV START INTRADERMA PRN
[2024-12-15] MEDS: IV FLUID CONTINUATION 1,000 ML IV ONE (08:07)
[2024-12-15 08:10] VITALS: TEMP 97.8
[2024-12-15] MEDS: LACTATED RINGERS 1,000 ML IV SCH (08:18)
[2024-12-15 08:21] LABS: Glucose,Whole Blood 94 mg/dL (70-110)
[2024-12-15] MEDS ORDERED: PROPOFOL 10 MG/ML 20 ML VIAL IV ONE (09:11)
--- NOTE | 2024-12-15 09:28 | P.GSHP ---
History of Present Illness H&P Date: 12/15/24 Chief Complaint: Dysphagia Is a 64-year-old female with complaints of dysphagia. Patient presents today for EGD with balloon dilatation of her GE junction. Past Medical History Past Medical History: Asthma, Chest Pain / Angina, COPD, Diabetes Mellitus, Fibromyalgia, GERD/Reflux, Hearing Disorder / Deafness, Hyperlipidemia, Hypertension, Liver Disease, Osteoarthritis (OA), Renal Disease, Rheumatoid Arthritis (RA), Skin Disorder, Sleep Apnea/CPAP/BIPAP, Thyroid Disorder Additional Past Medical History / Comment(s): persistent nausea and vomiting since hiatal hernia surgery-wt loss 16 pounds, HX of Hep. C was treated, hx liver and kidney failure from Lisinopril, DDD, Sjogren's syndrome. States diet controlled diabetes, restless leg syndrome, irregular heartbeat - sinus tachycardia, diverticulitis, "touch of crohns", IBS, overactive bladder, psoriasis, thyroid nodules, hx anemia as a child, bleeds easily-not on a blood thinner, plantar fasciitis, partially deaf right ear. using c pap, also wears 3 L o2 @hs and PRN History of Any Multi-Drug Resistant Organisms: None Reported Past Surgical History: Cholecystectomy, Hernia Repair, Orthopedic Surgery, Tubal Ligation Additional Past Surgical History / Comment(s): BILAT Carpal tunnel, eye surgery, right little toe fracture w/amputation, HIATAL HERNIA 05/2023(Umbilical hernia X2); [facility] lipoma removed right shoulder, hemorrhoidectomy x 2 lft aisha hernia, upper rt abdomen area hernia repair, hiatal hernia repair (second time 05/2024), EGD, COLONOSCOPY, CERVICAL BX, ALL TOENAILS REMOVED, Past Anesthesia/Blood Transfusion Reactions: Motion Sickness Smoking Status: Former smoker - Past Family History Father Family Medical History: Cancer Additional Family Medical History / Comment(s): Colon cancer. Mother Family Medical History: Cancer Additional Family Medical History / Comment(s): Uterine, skin cancer. Medications and Allergies Home Medications Medication Instructions Recorded Confirmed Type traMADol HCl [Ultram] 50 mg PO TID 02/15/14 12/15/24 History traZODone HCL [Desyrel] 100 mg PO HS 02/15/14 12/15/24 History Montelukast Sodium [Singulair] 10 mg PO HS 04/14/14 12/15/24 History Pilocarpine [Salagen] 5 mg PO QID 10/20/14 12/15/24 History Alendronate Sodium 70 mg PO PEACE 03/15/15 12/15/24 History rOPINIRole HCL [Requip] 1 mg PO HS 04/22/18 12/15/24 History EPINEPHrine [Epipen 2-Pipo] 0.3 mg IM ONCE PRN 05/05/18 12/15/24 History Verapamil HCl [Verapamil ER] 120 mg PO HS 09/08/19 12/15/24 History Mometasone Inhalr 220 Mcg/Puff 2 puff INHALATION BID 09/14/20 12/15/24 History [Asmanex] Ibuprofen 800 mg PO TID PRN 11/25/22 12/15/24 History Hyoscyamine Sulfate [Levsin] 0.125 mg PO QID 05/25/23 12/15/24 History Ipratropium-Albuterol Nebulize 3 ml INHALATION QID 05/25/23 12/15/24 History [Duoneb 0.5 mg-3 mg/3 ml Soln] Albuterol Inhaler [Ventolin Hfa 1 - 2 puff INHALATION DIRECTED 02/10/24 12/15/24 History Inhaler] Loratadine [Claritin] 10 mg PO HS 02/10/24 12/15/24 History Albuterol Sulfate/Budesonide 2 puff PO BID 06/03/24 12/15/24 History [Airsupra 90-80 Mcg Inhaler] Fluticasone Nasal [place] [Flonase 2 spray EA NOSTRIL BID 06/03/24 12/15/24 History Nasal Points] Metoclopramide [Reglan] 5 mg PO DIRECTED PRN 06/03/24 12/15/24 History Ondansetron Odt [Zofran Odt] 4 mg PO DIRECTED PRN 06/03/24 12/15/24 History hydrOXYzine pamoate 25 mg PO HS 06/03/24 12/15/24 History Lidocaine 5% Patch [Lidoderm] 1 patch TOPICAL DAILY PRN 12/12/24 12/15/24 History Allergies Allergy/AdvReac Type Severity Reaction Status Date / Time JOSE Inhibitors Allergy Severe kidney and Verified 12/15/24 08:02 liver failure, dehydration morphine Allergy Severe .SWELLING,RASH,SWELLING Verified 12/15/24 08:02 OF TONGUE,ABDOMINAL PAIN venom-honey bee Allergy Severe SHORTNESS Verified 12/15/24 08:02 OF BREATH,VOMITING, rash, swelling acetaminophen Allergy "not Verified 12/15/24 08:02 suppose to have acetaminophen" amitriptyline Allergy tongue Verified 12/15/24 08:02 swelling/rash aspirin Allergy Anaphylaxis,vomting, Verified 12/15/24 08:02 tongue swelling, SOB, rash atorvastatin calcium Allergy Anaphylaxis, Verified 12/15/24 08:02 [From Lipitor] vomting, rash bee pollen Allergy Anaphylaxis Verified 12/15/24 08:02 bupropion HCl Allergy TONGUE Verified 12/15/24 08:02 [From Wellbutrin] SWELLING/vomiting calcium Allergy Diarrhea Verified 12/15/24 08:02 ciprofloxacin [From Cipro] Allergy Vomiting,RA Verified 12/15/24 08:02 SH citalopram hydrobromide Allergy TONGUE Verified 12/15/24 08:02 [From Celexa] SWELLING clarithromycin [From Biaxin] Allergy Vomiting, Verified 12/15/24 08:02 SOB, tongue swelling duloxetine HCl Allergy SWELLING Verified 12/15/24 08:02 [From Cymbalta] OF TONGUE Fish Containing Products Allergy Vomiting,SW Verified 12/15/24 08:02 ELLDAVID KEARNEY S lisinopril Allergy kidney and Verified 12/15/24 08:02 liver failure,dehydration naproxen Allergy Vomiting,TONGUE Verified 12/15/24 08:02 SWELLING,SHORTNESS OF BREATH paroxetine HCl [From Paxil] Allergy Vomiting,TONGUE Verified 12/15/24 08:02 SWELLING, nausea Penicillins Allergy Anaphylaxis Verified 12/15/24 08:02 pregabalin [From Lyrica] Allergy TONGUE Verified 12/15/24 08:02 SWELLING ,RASH, vomiting Salicylates Allergy Anaphylaxis, Verified 12/15/24 08:02 vomting, tongue swelling, rash sertraline HCl [From Zoloft] Allergy SWELLING Verified 12/15/24 08:02 OF TONGUE shellfish derived [Shellfish] Allergy SWELLING Verified 12/15/24 08:02 OF TONGUE,,HIVES,vomiting sulfamethoxazole Allergy Rapid Verified 12/15/24 08:02 [From Bactrim] Heart Rate tizanidine Allergy Itching Verified 12/15/24 08:02 trimethoprim [From Bactrim] Allergy Rapid Verified 12/15/24 08:02 Heart Rate BEE,WASP,YELLOW JACKET-ANY Allergy Severe Anaphylaxis Uncoded 12/12/24 14:42 STING Plastic adhesive Allergy skin peels Uncoded 12/12/24 14:42 off SEAFOOD Allergy SWELLING Uncoded 12/12/24 14:42 OF TONGUE,HIVES, vomiting Surgical - Exam Vital Signs Temp Pulse Resp BP Pulse Ox 97.8 F 79 18 140/76 98 12/15/24 08:02 12/15/24 08:02 12/15/24 08:02 12/15/24 08:02 12/15/24 08:02 - General well developed, well nourished, no distress - Eyes PERRL - ENT normal pinna - Neck no masses - Respiratory normal expansion - Cardiovascular Rhythm: regular - Abdomen Abdomen: soft, non tender Assessment and Plan Plan: History of dysphagia. Will perform EGD with balloon dilatation
--- NOTE | 2024-12-15 09:29 | P.OP ---
Date of Procedure: 12/15/24 Preoperative Diagnosis: Dysphagia Gerd Postoperative Diagnosis: Dysphagia Procedure(s) Performed: EGD with balloon dilatation of GE junction Anesthesia: MAC Surgeon: Micha Brito Pathology: none sent Condition: stable Disposition: PACU Description of Procedure: The patient was placed on the endoscopy table in the lateral position. She received IV sedation. The gastric was placed oropharynx passed on the esophagus into the stomach. The scope was easily passed through the GE junction. The antrum appeared normal. The scope was retroflexed there was no significant hiatal hernia. Due to the patient's symptom of dysphagia a 20 mm balloon was held across the GE junction. This was done sequentially 3 times for several minutes. There was no injury to the GE junction. The balloon was inflated. Scope was withdrawn. Patient tolerated well. She was sent to recovery in stable condition.
[2024-12-15 09:39] VITALS: RESP 16
[2024-12-15 09:46] VITALS: BP 119/73; PULSE 81
== END 2024-12-15 10:03 | disposition home or self-care (01) ==
LOC: ORWHC2ENDO 07:29
PROVIDERS: ATTEND Surgery
DX: R13.10 Dysphagia, unspecified (principal); K21.9 Gastro-esophageal reflux disease without esophagitis; E11.9 Type 2 diabetes mellitus without complications; M19.90 Unspecified osteoarthritis, unspecified site; M06.9 Rheumatoid arthritis, unspecified; E78.5 Hyperlipidemia, unspecified; M35.00 Sjogren syndrome, unspecified; I10 Essential (primary) hypertension; K50.90 Crohn's disease, unspecified, without complications; G47.33 Obstructive sleep apnea (adult) (pediatric); J44.9 Chronic obstructive pulmonary disease, unspecified; M79.7 Fibromyalgia; N32.81 Overactive bladder; L40.9 Psoriasis, unspecified; H91.91 Unspecified hearing loss, right ear; Z79.51 Long term (current) use of inhaled steroids; Z79.899 Other long term (current) drug therapy; Z87.891 Personal history of nicotine dependence; Z98.890 Other specified postprocedural states; Z90.49 Acquired absence of other specified parts of digestive tract; Z98.51 Tubal ligation status; Z91.013 Allergy to seafood; Z91.09 Other allergy status, other than to drugs and biological substances; Z88.8 Allergy status to other drugs, medicaments and biological substances; Z88.6 Allergy status to analgesic agent; Z88.1 Allergy status to other antibiotic agents; Z88.5 Allergy status to narcotic agent; Z88.2 Allergy status to sulfonamides; Z88.0 Allergy status to penicillin; Z91.030 Bee allergy status
CPT/HCPCS: 43249; J2704; C1726